=== PATIENT | male | born 1945 | race Two or more races ===

== ENCOUNTER → 2020-10-25 12:54 | Outpatient (BNVA) | payer MEDICARE, MEDICAID, SELFPAY | PROVIDERS: PCP Nurse Practitioner Community Health; Visit Provider Anesthesiology | DX: M54.5 Low back pain (principal) | CPT/HCPCS: 99202 ==

== ENCOUNTER 2022-03-07 14:06 | Outpatient (REF) | payer MEDICARE, MEDICAID, SELFPAY ==
--- NOTE | ~2022-03-07 | XR_ITS ---
EXAMINATION: XR CHEST CLINICAL INFORMATION: I48.0 - Paroxysmal atrial fibrillation COMPARISON: Chest radiographs 01/05/2018, 01/04/2018, 08/02/2017; CT abdomen 01/04/2018. TECHNIQUE: The chest is imaged in frontal and 2 lateral views for a total of 3 views. FINDINGS: The cardiopericardial silhouette is within normal size. There is tapering at the right cardiophrenic angle consistent with areolar tissue. The vascularity is normal. No vascular congestion. No airspace consolidation or effusion. The costophrenic sulci are clear. The hilar and mediastinal contours and bony structures are similar to prior studies. XR/XR chest 2V IMPRESSION: No acute intrathoracic disease.
[2022-03-07 15:48] LABS: Hematocrit 38.4 % (42.0-52.0); Hemoglobin 12.7 g/dl (14.0-18.0); Mean Corpuscular HGB Conc 33.1 g/dl (31.0-36.0); Mean Corpuscular Hemoglobin 32.6 pg (27.0-33.0); Mean Corpuscular Volume 98.5 fL (80.0-98.0); Mean Platelet Volume 10.5 fL (9.4-12.4); Platelet Count 199 X10*3/uL (160-400); Red Cell Distribution Width 12.7 % (11.0-16.0); White Blood Count 4.8 X10*3/uL (4.8-10.8)
[2022-03-07 16:11] LABS: Alanine Aminotransferase 16 U/L (0-40); Alkaline Phosphatase 84 U/L (39-117); Anion Gap 16 (12-20); Aspartate Amino Transferase 17 U/L (5-37); Bilirubin Direct 0.3 mg/dL (0.0-0.5); Bilirubin Total 0.7 mg/dL (0.0-1.0); Blood Urea Nitrogen 24 mg/dL (9-16); Calcium 9.6 mg/dL (8.4-10.2); Carbon Dioxide 26 mmol/L (22-29); Chloride 104 mmol/L (96-108); Estimated Glomerular Filt Rate 41; Glucose Random 129 mg/dL (60-115); Magnesium 1.9 mg/dL (1.6-2.6); Potassium 4.7 mmol/L (3.3-5.1); Sodium 141 mmol/L (135-145); Total Protein 6.6 g/dL (6.5-8.0)
[2022-03-07 16:31] LABS: TSH reflex Free T4 1.72 uIU/mL (0.32-4.0)
== END 2022-03-07 14:07 | disposition home or self-care (01) ==
LOC: HO.LAB 14:06
PROVIDERS: PCP Family Medicine; Referring Provider Family Medicine; Visit Provider Internal Medicine Cardiovascular Disease
DX: I48.0 Paroxysmal atrial fibrillation (principal); I50.30 Unspecified diastolic (congestive) heart failure
CPT/HCPCS: 36415; 71046; 80048; 80076; 83735; 84443; 85027; 93005; 99202

== ENCOUNTER → 2022-04-19 14:32 | Outpatient (REF) | payer MEDICARE, MEDICAID, SELFPAY ==
--- NOTE | 2022-04-19 14:38 | CA_ITS ---
Transthoracic Echocardiogram Patient (Last, First, Middle): Wili Ruiz, Gender: Male Date of : 1945 Age: 76 Procedure Date: 04/19/2022 Procedure Type: Transthoracic Echocardiogram Location: OP Height: 177.8 cm Weight: 113.4 kg BSA: 2.29 m2 Heart Rate: bpm BP: 130 / 70 mmHg [employer]er: Referring MD: Neil Barnhart MD Route Process Administrator: Neil Barnhart MD Symptoms: I48.0 - Paroxysmal atrial fibrillation Study Quality: Good ECG Rhythm: Sinus Conclusions: - 1. Normal LV systolic function with mild LVH with impaired relaxation filling pattern 2. Mild mitral calcification with trivial aortic regurgitation 3. Normal RV systolic pressure 4. No pericardial effusion Findings Left Ventricle Normal left ventricular size and systolic function. There is mildly increased left ventricular wall thickness. The visually estimated ejection fraction is between 60-65%. Spectral Doppler is indicative of an impaired relaxation filling pattern. E/E prime ratio is between 8 and 15 consistent with indeterminate filling pressures. Right Ventricle Normal right ventricular cavity size and systolic function. Atria The left atrium is normal in size. There is no evidence of interatrial shunt. The right atrium is likely dilated. Aortic Valve There is mild calcification of the aortic valve. There is no aortic valve stenosis. There is trace (trivial) aortic valve regurgitation. Mitral Valve There is mild anterior and posterior mitral leaflet thickening. There is mild mitral annular calcification. There is trace mitral valve regurgitation. There is no mitral valve stenosis. Pulmonic Valve The pulmonic valve was not well visualized. Tricuspid Valve Likely normal tricuspid valve structure and function. There is trace tricuspid valve regurgitation. The right ventricular systolic pressure is normal. The right ventricular systolic pressure is 27 mmHg. Normal right atrial pressure. There is no evidence of pulmonary hypertension. Great Vessels All visible segments of the aorta are normal in size. The pulmonary artery was not well visualized. Venous The inferior vena cava is normal in size and collapses greater than 50% with inspiration. Pericardium/Pleural There is no evidence of pericardial effusion. Prior Study Comparison Changes noted compared to prior study dated: 01/05/2018. RV systolic pressure is normal on this study Measurements 2D Linear Measurements IVSd: 1.39 0.6-0.9/0.6-1.0 cm LVIDd: 4.68 3.9-5.3/4.2-5.9 cm LVIDd Index: 2.04 2.4-3.2/2.2-3.1 cm/m2 LVIDs: 3.07 2.0-3.6 cm LVPWd: 1.34 0.7-1.1 cm Ao Root: 3.60 2.1-3.5 cm LA Diam: 3.70 2.7-3.8/3.0-4.0 cm LAIDs Index: 1.62 1.5-2.3 cm/m2 LV Mass: 316.54 67-162/88-224 g LV Mass Index: 138.23 43-95/49-115 g/m2 LVOT Diam: 2.20 3.0+(-)1.3 cm Mitral Valve MV Pk E: 0.83 MV PK A: 0.90 MV Decel Time: 262.00 E/A: 0.90 E'Lateral: 5.87 E'Medial: 4.68 E/E' Med: 17.80 E/E' Lat: 14.20 PHT: 77.00 MVA PHT: 2.86 Decel [place]: 3.17 Aortic Valve AoV Pk Ayo: 2.08 AoV Mn Ayo: 1.42 AoV VTI: 0.47 AoV Pk Grad: 17.00 Aov Mn Grad: 9.00 DEJUAN Cont.VTI: 1.79 LVOT LVOT Pk Ayo: 0.89 LVOT Mn Ayo: 0.62 LVOT VTI: 0.22 LVOT Pk Grad: 3.00 LVOT Mn Grad: 2.00 LVOT Diam: 2.20 LVOT Area: 3.80 Diastolic Function MV Pk E: 0.83 MV Pk A: 0.90 E/A: 0.90 E'Medial: 4.68 E/E' Med: 17.80 E' Laterial: 5.87 E/E' Lat: 14.20 Tricuspid Valve TR Pk Ayo: 2.43 TR Pk Grad: 24.00 RA Press: 3.00 RVSP: 27.00 Great Vessels Aorta Ao Root-2D: 3.60 2.0-3.7 cm Pulmonary Valve PV Pk Ayo: 1.25 Peak PV Grad: 6.00 Updated in Other Vendor System with Status of Final Neil Barnhart MD electronically signed on 04/20/2022 1:45:16 PM with status of Final
--- NOTE | 2022-04-19 14:38 | HM_ITS ---
Conclusion: 1. Patient was monitored for total period of 3 days and 6 hours 2. Baseline was normal sinus rhythm with average heart rate of 55 beats per minute on the bradycardic side 3. No significant pauses noted with lowest heart rate of 46 beats per minute 4. Very rare PVCs noted 5. No patient reported events MTDD
== END ==
LOC: HO.CARD 14:32
PROVIDERS: PCP Family Medicine; Visit Provider Internal Medicine Cardiovascular Disease
DX: I48.0 Paroxysmal atrial fibrillation (principal)
CPT/HCPCS: 93242; 93306

== ENCOUNTER 2022-05-31 15:31 | Outpatient (REF) | payer MEDICARE, MEDICAID, SELFPAY ==
[2022-05-31 17:08] LABS: Anion Gap 17 (12-20); Blood Urea Nitrogen 29 mg/dL (9-16); Carbon Dioxide 30 mmol/L (22-29); Chloride 101 mmol/L (96-108); Estimated Glomerular Filt Rate 46; Glucose Random 132 mg/dL (60-115); Potassium 4.8 mmol/L (3.3-5.1); Sodium 143 mmol/L (135-145)
== END 2022-05-31 15:32 | disposition home or self-care (01) ==
LOC: HO.LAB 15:31
PROVIDERS: Visit Provider Nurse Practitioner Family
DX: I48.0 Paroxysmal atrial fibrillation (principal); R79.89 Other specified abnormal findings of blood chemistry
CPT/HCPCS: 36415; 80048; 99212

== ENCOUNTER → 2022-07-26 15:21 | Outpatient (BNVA) | payer MEDICARE, MEDICAID, SELFPAY | PROVIDERS: PCP Family Medicine; Visit Provider Anesthesiology | DX: M54.41 Lumbago with sciatica, right side (principal); Z99.3 Dependence on wheelchair | CPT/HCPCS: 99212 ==

== ENCOUNTER 2022-08-15 06:29 | Outpatient (REF) | payer MEDICARE, MEDICAID, SELFPAY ==
--- NOTE | ~2022-08-15 | FL_ITS ---
EXAMINATION: XR FLUOROSCOPY WITH IMAGES CLINICAL INFORMATION: Low back pain TECHNIQUE: Fluoroscopy Supervised By: Dr. Kai Bills. Fluoroscopy Time: 0.2 minutes. Cumulative Dose: 17.9 mGy. DAP: 4.88 Gycm2. Images: 2. FL/FL guidance in treatment room FINDINGS/IMPRESSION: Images show a spinal needle in the right sacroiliac joint. Please see procedure report.
== END 2022-08-15 06:30 | disposition home or self-care (01) ==
LOC: CF 06:29
PROVIDERS: Visit Provider Anesthesiology
DX: M54.50 Low back pain, unspecified (principal)
CPT/HCPCS: 27096

== ENCOUNTER → 2022-08-17 10:56 | Outpatient (BNVA) | payer MEDICARE, MEDICAID, SELFPAY | PROVIDERS: PCP Family Medicine; Visit Provider Anesthesiology | DX: M54.50 Low back pain, unspecified (principal) | CPT/HCPCS: Q3014 ==

== ENCOUNTER 2022-09-26 06:17 | Outpatient (REF) | payer MEDICARE, MEDICAID, SELFPAY | END 2022-09-26 06:18 | disposition home or self-care (01) | LOC: CF 06:17 | PROVIDERS: Visit Provider Anesthesiology | DX: Z13.89 Encounter for screening for other disorder (principal) ==

== ENCOUNTER 2022-12-12 06:38 | Outpatient (REF) | payer MEDICARE, MEDICAID, SELFPAY ==
--- NOTE | ~2022-12-12 | FL_ITS ---
EXAMINATION: XR FLUOROSCOPY WITH IMAGES CLINICAL INFORMATION: Low back pain. COMPARISON: None. TECHNIQUE: Fluoroscopy Supervised By: CUONG Anaya. Fluoroscopy Time: 0.4 minutes. Cumulative Dose: 11.9 mGy. DAP: 3.25 Gycm2. Images: 4. FINDINGS: There are needles positioned along the right aspect of L3, L4, L5 and S1 pedicles with contrast opacifying the adjacent soft tissues. There is moderate spondylosis of lower lumbar spine. No acute fracture or lytic process seen. FL/FL guidance in treatment room IMPRESSION: Fluoroscopy was provided to referrer for pain management.
--- NOTE | ~2022-12-12 | XR_ITS ---
EXAMINATION: XR KNEE, RIGHT CLINICAL INFORMATION: Chronic pain COMPARISON: Right knee 08/02/2017 TECHNIQUE: 3 views of the right knee. FINDINGS: There is severe loss of medial and patellofemoral compartment joint space with superior patellar spurring. No visible acute fracture or dislocation seen. There are no loose bodies. Degenerative varus deformity of right ankle is noted. XR/XR knee RT 3V IMPRESSION: 1. Degenerative arthritic changes medial and patellofemoral compartment with superior patellar spurring. No visible acute fracture or dislocation seen. 2. Genu varus deformity right ankle.
== END 2022-12-12 06:39 | disposition home or self-care (01) ==
LOC: HO.XRAY 06:38
PROVIDERS: Absent Provider Family Medicine; PCP Family Medicine; Visit Provider Anesthesiology
DX: M54.50 Low back pain, unspecified (principal); M47.816 Spondylosis without myelopathy or radiculopathy, lumbar region; M53.3 Sacrococcygeal disorders, not elsewhere classified; M25.561 Pain in right knee; M25.562 Pain in left knee; G89.29 Other chronic pain
CPT/HCPCS: 64493; 64494; 73562

== ENCOUNTER → 2022-12-18 11:18 | Outpatient (BNVA) | payer MEDICARE, MEDICAID, SELFPAY | PROVIDERS: PCP Family Medicine; Visit Provider Anesthesiology | DX: M54.50 Low back pain, unspecified (principal) | CPT/HCPCS: Q3014 ==

== ENCOUNTER 2023-01-11 12:36 | Outpatient (REF) | payer MEDICARE, MEDICAID, SELFPAY ==
--- NOTE | ~2023-01-11 | XR_ITS ---
EXAMINATION: XR CHEST CLINICAL INFORMATION: I48.0 - Paroxysmal atrial fibrillation COMPARISON: Chest radiographs 03/07/2022, 01/05/2018 TECHNIQUE: Sitting AP and sitting lateral views of the chest. FINDINGS: There are low lung volumes on the AP view along with caudad angulation of the x-ray beam. The lungs appear clear and there is no airspace consolidation or groundglass opacity. Cardiopericardial silhouette appears upper limits of normal. The vascularity is within normal limits and there is no vascular congestion or effusion. The hilar and mediastinal contours and bony structures are similar to prior studies. XR/XR chest 2V IMPRESSION: No acute intrathoracic disease.
[2023-01-11 14:29] LABS: Hematocrit 35.3 % (42.0-52.0); Hemoglobin 11.5 g/dl (14.0-18.0); Mean Corpuscular HGB Conc 32.6 g/dl (31.0-36.0); Mean Corpuscular Volume 101.1 fL (80.0-98.0); Mean Platelet Volume 10.6 fL (9.4-12.4); Platelet Count 199 X10*3/uL (160-400); Red Blood Count 3.49 X10*6/uL (4.60-5.80); Red Cell Distribution Width 12.6 % (11.0-16.0); White Blood Count 4.6 X10*3/uL (4.8-10.8)
[2023-01-11 14:31] LABS: Alanine Aminotransferase 11 U/L (0-40); Alkaline Phosphatase 88 U/L (39-117); Anion Gap 14 (12-20); Aspartate Amino Transferase 15 U/L (5-37); Bilirubin Direct < 0.2 mg/dL (0.0-0.5); Bilirubin Total 0.4 mg/dL (0.0-1.0); Blood Urea Nitrogen 19 mg/dL (9-16); Calcium 9.2 mg/dL (8.4-10.2); Carbon Dioxide 31 mmol/L (22-29); Chloride 103 mmol/L (96-108); Estimated Glomerular Filt Rate 43; Glucose Random 95 mg/dL (60-115); Potassium 4.8 mmol/L (3.3-5.1); Sodium 143 mmol/L (135-145); Total Protein 6.2 g/dL (6.5-8.0)
== END 2023-01-11 12:37 | disposition home or self-care (01) ==
LOC: HO.LAB 12:36
PROVIDERS: PCP Family Medicine; Referring Provider Family Medicine; Visit Provider Internal Medicine Cardiovascular Disease
DX: I48.0 Paroxysmal atrial fibrillation (principal); R07.89 Other chest pain
CPT/HCPCS: 36415; 71046; 80048; 80076; 84443; 85027; 93005; 99212

== ENCOUNTER 2023-03-30 12:09 | Outpatient (REF) | payer MEDICARE, MEDICAID, SELFPAY ==
[2023-03-30 19:45] LABS: Anion Gap 14 (12-20); Blood Urea Nitrogen 20 mg/dL (9-16); Calcium 9.1 mg/dL (8.4-10.2); Carbon Dioxide 27 mmol/L (22-29); Chloride 104 mmol/L (96-108); Estimated Glomerular Filt Rate 49; Glucose Random 162 mg/dL (60-115); Potassium 4.1 mmol/L (3.3-5.1); Sodium 141 mmol/L (135-145)
[2023-03-30 20:08] LABS: Prostate Specific Antigen 1.62 ng/mL (<0.05-4.0)
== END 2023-03-30 12:10 | disposition home or self-care (01) ==
LOC: HO.LAB 12:09
PROVIDERS: Internal Medicine Cardiovascular Disease; PCP Family Medicine; Visit Provider Nurse Practitioner Family
DX: Z12.5 Encounter for screening for malignant neoplasm of prostate (principal); N40.0 Benign prostatic hyperplasia without lower urinary tract symptoms; I48.0 Paroxysmal atrial fibrillation; R53.83 Other fatigue; R30.0 Dysuria; Z87.898 Personal history of other specified conditions
CPT/HCPCS: 36415; 51798; 80048; 84153; 99202

== ENCOUNTER 2023-05-01 12:44 | Outpatient (REF) | payer MEDICARE, MEDICAID, SELFPAY ==
--- NOTE | ~2023-05-01 | US_ITS ---
EXAMINATION: US RETROPERITONEAL COMPLETE (RENAL) CLINICAL INFORMATION: Dysuria. COMPARISON: CT abdomen and pelvis without contrast 01/04/2018. TECHNIQUE: Real-time imaging of the kidneys and bladder. FINDINGS: RIGHT KIDNEY: 10.2 x 4.1 x 5.1 cm (SAG x AP x TRV). The kidney is normal in size, contour, and echogenicity. Renal cortical thickness is normal. No renal calculi or hydronephrosis. There is a 1 cm simple cyst in the lower pole, for which no imaging follow-up is recommended. LEFT KIDNEY: 10.3 x 5.2 x 4.7 cm (SAG x AP x TRV). There are multiple simple cysts largest in the midpole measuring 1.4 cm, for which no imaging follow-up is recommended. There is nonspecific prominence of the pelvic fat and renal pyramids which are hyperechoic. There is trace pelvic fullness. BLADDER: Bilateral ureteral jets are not demonstrated. Prevoid bladder volume is 219.2 mL. Postvoid bladder volume is 6.2 mL. There is diffuse wall thickening. Along the right posterior bladder, there is a cystic outpouching with a narrow neck with no associated vascularity. The prostate volume is 35.0 mL. US/US retroperitoneal comp IMPRESSION: 1. Nonspecific prominence of the pelvic fat and renal pyramids of the left kidney, recommend further evaluation with CT or MRI. 2. There is mild diffuse wall thickening of the urinary bladder which could be seen with cystitis in the appropriate clinical context. 3. There is a cystic outpouching along the right posterior bladder wall with a narrow neck, possibly representing a ureterocele. 4. There is trace left pelvic fullness. 5. The prostate is mildly enlarged.
== END 2023-05-01 12:45 | disposition home or self-care (01) ==
LOC: HO.US 12:44
PROVIDERS: PCP Family Medicine; Visit Provider Nurse Practitioner Family
DX: R30.0 Dysuria (principal)
CPT/HCPCS: 76770

== ENCOUNTER 2023-05-14 13:32 | Outpatient (AMB) | payer MEDICARE, MEDICAID, SELFPAY ==
--- NOTE | 2023-05-14 13:43 | A.OFFVIS_ITS ---
Intake Intake Visit Reasons: 2m/US/labs(set) Intake Note: Patient presents for follow up ultrasound/labs/BPH (imaging 05/01) (PSA 1.62) Urology Medications: tamsulosin Blood Thinner: apixaban PVR: 10ml's Credit Analysis Manager Required: Yes Accompanied by: Self / Same As Patient Allergies acetaminophen [Excedrin Extra Strength] Allergy (Unknown, Verified 05/15/23 20:08) Unknown caffeine [Excedrin Extra Strength] Allergy (Unknown, Verified 05/15/23 20:08) Unknown aspirin [ASPIRIN] Adverse Reaction (Unknown, Verified 05/15/23 20:08) UNKNOWN Medication List - Last Reconciled 05/15/23 by CUONG Delgadillo-BRITTANY albuterol sulfate 90 mcg/actuation inhalation amiodarone 200 mg PO DAILY apixaban (Eliquis) 5 mg PO BID atorvastatin 40 mg PO DAILY ferrous sulfate 325 mg PO QAM fluticasone furoate-vilanterol 200-25 mcg/dose (Breo Ellipta) 1 ea inhalation DAILY folic acid 1 mg PO QAM lidocaine 5% 1 patch topical DAILY melatonin 5 mg PO BEDTIME metformin 850 mg PO BID metoprolol succinate ER 50 mg PO DAILY multivitamin 1 tab PO QAM paroxetine HCl 10 mg PO DAILY quetiapine 100 mg PO BEDTIME sucralfate PO tamsulosin 0.4 mg PO DAILY 90 days trazodone 100 mg PO BEDTIME HPI HPI Comments History of Present Illness Details Wili is pleasant 77 year old Martiniquais speaking male patient of Dr. Peng who is accompanied by his grandaughter and daughter at todays visit. He has a PMH of paroxysmal atrial fibrillation, fatigue arthritis, asthma, and diabetes. He presents to the office today for follow-up. Of note, patient was seen approximately 6 weeks ago as a new patient to establish urology care at which time a retroperitoneal ultrasound and PSA was ordered for further assessment evaluation. These results were reviewed with the patient and his family today. PSA 03/30--1.6. Right kidney with no calculi or hydronephrosis noted. There is a 1 cm simple cyst in the lower pole for which no imaging follow-up is recommended per radiology report.Left kidney with multiple simple cysts largest in the mid pole measuring 1.4 cm for which no imaging follow-up is recommended. There is nonspecific prominence of the pelvic fat and renal pyramids which or hyperechoic. There is mild trace pelvic fullness. Pre void bladder volume is approximately 220 mL. Postvoid bladder volume is approximately 5 mL. there is diffuse wall thickening. Along the right posterior bladder, there is a cystic outpouching with a narrow neck with no associated vascularity. The prostate volume is approximately 35 mL. He continues with tamsulosin daily. He currently denies any urinary issues or concerns at this time. When asked he denies urinary urgency, urinary frequency, incontinence, nocturia, hematuria, foul smelling urine, changes to urinary stream, flank pain, fever, and or chills. Discussed importance of managing diabetes for improvement in urinary symptoms as well as overall health and wellbeing. He is happy with his current voiding parameters on flomax daily. Unable to obtain urine for urinalysis however PVR 10mls. He otherwise denies any issues or concerns. [facility] Medical History Arthritis Asthma Diabetes Fatigue Low back pain Paroxysmal atrial fibrillation Social History Alcohol intake: current Alcohol intake frequency: does not drink Patient Tobacco Use Status: Never used Tobacco Review of Systems Const Reports as per HPI Eyes Reports as per HPI ENT Reports no additional complaints Card Reports as per HPI Resp Reports as per HPI Reports as per HPI Musc Reports no additional complaints Endo Reports as per HPI Physical Exam Const General: cooperative, comfortable, no acute distress, well developed, alert and awake Orientation/consciousness: patient oriented x3 Limitations: wheelchair HEENT Head: Yes normal to inspection, Yes normocephalic and Yes atraumatic Ears: hearing grossly normal bilaterally Eyes General: appearance normal, both eyes and all related structures Neck Neck: Yes normal visual inspection and Yes trachea midline Chest Chest palpation & inspection: normal inspection of the chest Resp Effort & Inspection: normal respiratory effort and able to speak in complete sentences Cardio Rate: regular rate GI Inspection: Yes normal to inspection General: Yes no CVA tenderness Back/Spine/Pelvis Back: no CVA tenderness Skin General skin exam: no rashes or lesions noted Neuro General: patient oriented x3 Extrem General: Yes normal to inspection Psych Appearance: grossly normal and well kempt Mental Status: mental status grossly normal Speech and movement: Normal speech and movement present and Clear speech present Affect: normal affect Attitude: cooperative Thought process: Normal thought process present Thought content: Normal thought content present Insight: Fair insight present (Psych) Judgement: Fair judgement present (Psych) Office Procedures Post Void Residual Post Residual Void Post Void Residual (PVR): 10 [id number] Void Residual by ultrasound Results Reviewed Results Reviewed: Date of Service: 05/01/23 EXAMINATION: US RETROPERITONEAL COMPLETE (RENAL) FINDINGS: RIGHT KIDNEY: 10.2 x 4.1 x 5.1 cm (SAG x AP x TRV). The kidney is normal in size, contour, and echogenicity. Renal cortical thickness is normal. No renal calculi or hydronephrosis. There is a 1 cm simple cyst in the lower pole, for which no imaging follow-up is recommended. LEFT KIDNEY: 10.3 x 5.2 x 4.7 cm (SAG x AP x TRV). There are multiple simple cysts largest in the midpole measuring 1.4 cm, for which no imaging follow-up is recommended. There is nonspecific prominence of the pelvic fat and renal pyramids which are hyperechoic. There is trace pelvic fullness. BLADDER: Bilateral ureteral jets are not demonstrated. Prevoid bladder volume is 219.2 mL. Postvoid bladder volume is 6.2 mL. There is diffuse wall thickening. Along the right posterior bladder, there is a cystic outpouching with a narrow neck with no associated vascularity. The prostate volume is 35.0 mL. IMPRESSION: 1.? Nonspecific prominence of the pelvic fat and renal pyramids of the left kidney, recommend further evaluation with CT or MRI. 2.? There is mild diffuse wall thickening of the urinary bladder which could be seen with cystitis in the appropriate clinical context. 3.? There is a cystic outpouching along the right posterior bladder wall with a narrow neck, possibly representing a ureterocele. 4.? There is trace left pelvic fullness. 5.? The prostate is mildly enlarged. Assessment & Plan Assessment & Plan (1) Renal cyst: Code(s): N28.1 - Cyst of kidney, acquired (2) History of urinary retention: Code(s): Z87.898 - Personal history of other specified conditions Plan Unable to urine for urinalysis however PVR 10ml's. Recent retroperitoneal ultrasound results reviewed with the patient his family today; as noted above; will continue with surveillance imaging monitoring Recent PSA results reviewed with the patient his family today; as noted above. Patient reports to be happy with current voiding parameters on 0.4 mg of Flomax daily. Continue Flomax as discussed and prescribed. Patient denies any bothersome urinary issues or concerns at this time. Discussed, educated, encouraged on the importance of drinking plenty of water daily. PSA in 1 year Renal ultrasound in 1 year Follow-up in 1 year with lab to be completed prior; or sooner with any issues, concerns, and or questions. Orders: Orders Prostate Specific Antigen 364 Days N40.0 - Benign prostatic hyperplasia without lower urinary tract symptoms US renal BI 364 Days N28.1 - Cyst of kidney, acquired AMB Urinalysis Automated 05/14/23 Z13.9 - Encounter for screening, unspecified AMB Post Void Residual by ultrasound 05/14/23 Z87.898 - Personal history of other specified conditions Medications: Changed From tamsulosin 0.4 mg PO DAILY To tamsulosin 0.4 mg PO DAILY 90 days 90 caps 4RF Coding Level of Care Code Est Pt Level 3 (39571) Diagnoses Renal cyst N28.1 History of urinary retention Z87.898 CPT Codes Post Residual Void - PVR CPT Code: 14295-Dpvb Void Residual by ultrasound ([id number])
== END 2023-05-14 14:24 | disposition home or self-care (01) ==
PROVIDERS: PCP Family Medicine; Visit Provider Nurse Practitioner Family
DX: N28.1 Cyst of kidney, acquired (principal); Z87.898 Personal history of other specified conditions
CPT/HCPCS: 99213

== ENCOUNTER → 2023-05-14 13:32 | Outpatient (BNVA) | payer MEDICARE, MEDICAID, SELFPAY | PROVIDERS: PCP Family Medicine; Visit Provider Nurse Practitioner Family | DX: N28.1 Cyst of kidney, acquired (principal); Z87.898 Personal history of other specified conditions | CPT/HCPCS: 51798; 99212 ==

== ENCOUNTER 2023-07-05 11:46 | Outpatient (AMB) | payer MEDICARE, MEDICAID, SELFPAY ==
--- NOTE | 2023-07-05 12:59 | A.OFFVIS_ITS ---
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: No Hydrogen Plant Operations Manager: Hydrogen Plant Operations Manager Present Accompanied by: Grand Child Allergies acetaminophen [Excedrin Extra Strength] Allergy (Unknown, Verified 05/15/23 20:08) Unknown caffeine [Excedrin Extra Strength] Allergy (Unknown, Verified 05/15/23 20:08) Unknown aspirin [ASPIRIN] Adverse Reaction (Unknown, Verified 05/15/23 20:08) UNKNOWN Medication List - Last Reconciled 07/05/23 by Neil Barnhart MD albuterol sulfate 90 mcg/actuation inhalation amiodarone 200 mg PO DAILY apixaban (Eliquis) 5 mg PO BID atorvastatin 40 mg PO DAILY ferrous sulfate 325 mg PO QAM fluticasone furoate-vilanterol 200-25 mcg/dose (Breo Ellipta) 1 ea inhalation DAILY folic acid 1 mg PO QAM lidocaine 5% 1 patch topical DAILY melatonin 5 mg PO BEDTIME metformin 850 mg PO BID metoprolol succinate ER 50 mg PO DAILY multivitamin 1 tab PO QAM paroxetine HCl 10 mg PO DAILY quetiapine 100 mg PO BEDTIME sucralfate PO tamsulosin 0.4 mg PO DAILY 90 days trazodone 100 mg PO BEDTIME HPI HPI Comments History of Present Illness Details Wili comes for follow-up. He is accompanied by his PROCESS PROJECT ENGINEER. Patient has minimal activity due to his significant back pain as per him. He said he is not able to do much exercise. He denies any cardiac symptoms. Denies any worsening shortness of breath, orthopnea, PND. No prolonged palpitation irregular heartbeat. No bleeding issues or neurologic events. [facility] Medical History Paroxysmal atrial fibrillation Low back pain Fatigue Arthritis Asthma Diabetes Social History Alcohol intake: current Alcohol intake frequency: does not drink Patient Tobacco Use Status: Never used Tobacco Review of Systems Const Denies chills, Denies fatigue, Denies fever(s), Denies frequent falls, Denies weakness, Denies weight gain and Denies weight loss ENT Denies dizziness Card Denies chest pain, Denies leg edema, Denies lightheadedness, Denies palpitations, Denies dyspnea, Denies dyspnea on exertion, Denies orthopnea and Denies other (loss of consciousness) Resp Denies cough, Denies dyspnea and Denies dyspnea on exertion GI Denies hematochezia and Denies change in stool character Musc Denies abnormal gait, Denies muscle weakness, Denies numbness, Denies radiating pain into limb and Denies tingling Neuro Denies abnormal gait, Denies dizziness, Denies frequent falls, Denies numbness, Denies tingling and Denies weakness Endo Denies fatigue and Denies palpitations Physical Exam Vital Signs: Last Vital Signs Pulse 59 07/05/23 13:05 BP 130/82 07/05/23 13:05 BMI result Body Mass Index 33.5 Const General: cooperative, comfortable and no acute distress Orientation/consciousness: patient oriented x3 Limitations: wheelchair Neck Neck: Yes normal visual inspection and Yes no JVD Carotids: normal carotid upstroke Resp Effort & Inspection: normal respiratory effort Auscultation: clear to auscultation bilaterally, no crackles, no rales, no rhonchi and no wheezes Cardio Jugular venous distension: no JVD Rate: regular rate Rhythm: regular rhythm Heart sounds: S1 normal heart sound present, S2 normal heart sound present, no gallops, no murmurs and no rubs Peripheral pulses: Peripheral pulses 2+ throughout GI Inspection: Yes normal to inspection Neuro General: patient oriented x3 Extrem General: Yes normal to inspection Psych Appearance: grossly normal Mental Status: mental status grossly normal Speech and movement: Normal speech and movement present Office Procedures EKG Details: EKG shows sinus bradycardia at 59 beats per minute with first-degree AV block [place] [id number], Complete Assessment & Plan Assessment & Plan (1) Paroxysmal atrial fibrillation: Code(s): I48.0 - Paroxysmal atrial fibrillation Plan: Paroxysmal atrial fibrillation which has remained suppressed and has help with rhythm control approach. Will reduce amiodarone 200 mg daily to reduce long- term toxicity. Discussed this management plan with him and his PROCESS PROJECT ENGINEER. They understand agree. Continue full oral anticoagulation, currently on Eliquis 5 mg b.i.d.. Semi annual renal function test should be pursued. Advised to call me with any worsening symptoms. Follow up in the clinic in 6 months time with EKG. Orders: Orders Basic Metabolic Panel Today I48.0 - Paroxysmal atrial fibrillation CA echo transthoracic complete 50 Weeks I48.0 - Paroxysmal atrial fibrillation Medications: Changed From amiodarone 200 mg PO DAILY To amiodarone 100 mg PO DAILY Coding Level of Care Code Est Pt Level 3 (54991) Diagnoses Paroxysmal atrial fibrillation I48.0 CPT Codes EKG - CPT: 03003-[id number], Complete ([id number])
[2023-07-05 13:05] VITALS: BP 130/82; PULSE 59; BMI 33.5
== END 2023-07-05 13:26 | disposition home or self-care (01) ==
PROVIDERS: PCP Family Medicine; Visit Provider Internal Medicine Cardiovascular Disease
DX: I48.0 Paroxysmal atrial fibrillation (principal)
CPT/HCPCS: 93010; 99213

== ENCOUNTER 2023-07-05 11:46 | Outpatient (REF) | payer MEDICARE, MEDICAID, SELFPAY ==
[2023-07-05 14:23] LABS: Anion Gap 16 (12-20); Blood Urea Nitrogen 23 mg/dL (9-16); Calcium 9.9 mg/dL (8.4-10.2); Carbon Dioxide 29 mmol/L (22-29); Chloride 101 mmol/L (96-108); Estimated Glomerular Filt Rate 51; Glucose Random 111 mg/dL (60-115); Potassium 4.9 mmol/L (3.3-5.1); Sodium 141 mmol/L (135-145)
== END 2023-07-05 11:47 | disposition home or self-care (01) ==
LOC: HO.LAB 11:46
PROVIDERS: PCP Family Medicine; Visit Provider Internal Medicine Cardiovascular Disease
DX: I48.0 Paroxysmal atrial fibrillation (principal); Z79.899 Other long term (current) drug therapy
CPT/HCPCS: 36415; 80048; 93005; 99212

== ENCOUNTER 2023-07-10 09:28 | Outpatient (REF) | payer MEDICARE, MEDICAID, SELFPAY ==
--- NOTE | ~2023-07-10 | US_ITS ---
EXAMINATION: US RETROPERITONEAL LIMITED (AORTA) CLINICAL INFORMATION: History of tobacco use. COMPARISON: None available. TECHNIQUE: Valentin-scale, color Doppler and spectral Doppler evaluation of the abdominal aorta. FINDINGS: There is atherosclerotic disease. The measurements of the aorta in maximum AP and transverse dimensions respectively are as follows: Proximal: 2.9 x 3.5 cm. Mid: 2.1 x 2.2 cm. Distal: 1.8 x 1.9 cm. PSV: 59.3 cm/s. The measurements of the common iliac arteries in maximum AP and TRV dimensions are as follows: Right Common Iliac Artery: 1.2 x 0.9 cm. Left Common Iliac Artery: 1.3 x 1.2 cm. US/US abdominal aortic aneurysm IMPRESSION: No abdominal aortic or iliac artery aneurysm.
== END 2023-07-10 09:29 | disposition home or self-care (01) ==
LOC: HO.US 09:28
PROVIDERS: PCP Family Medicine; Visit Provider Family Medicine
DX: Z13.89 Encounter for screening for other disorder (principal)
CPT/HCPCS: 76706

== ENCOUNTER 2023-07-10 10:05 | Emergency (ER) | payer MEDICARE, MEDICAID, SELFPAY ==
--- NOTE | ~2023-07-10 | XR_ITS ---
EXAMINATION: XR CHEST CLINICAL INFORMATION: Altered mental status COMPARISON: 01/11/2023 TECHNIQUE: Frontal view of the chest was obtained. FINDINGS: Heart and mediastinum within normal limits. No vascular congestion. Left costophrenic angle blunting. No consolidations. Degenerative changes bilateral shoulders. XR/XR chest 1V IMPRESSION: Left costophrenic angle blunting, question small effusion. Consider PA and lateral feasible.
--- NOTE | ~2023-07-10 | CT_ITS ---
EXAMINATION: CT HEAD WITHOUT CONTRAST CLINICAL INFORMATION: Change in mental status. COMPARISON: CT head 01/04/2018. TECHNIQUE: Contiguous axial imaging was performed from the skull base to vertex without intravenous administration of contrast. This CT examination was performed using dose optimization techniques as appropriate, variously including the following: *Automated exposure control *Adjustment of mA and/or kV according to patient size (this includes techniques or standardized protocols for targeted exams where dose is matched to indication/reason for exam; i.e. extremities or head) *Use of iterative reconstruction technique DLP: 842 mGy-cm FINDINGS: There is a relatively small low-density subdural collection of the right cerebral convexity that measures approximately 0.5 cm in maximal thickness. Mass effect within the right supratentorial compartment causes 0.4 cm leftward midline shift of the septum pellucidum. No uncal herniation or mesencephalic compression. No evidence of acute hemorrhage. There are scattered nonspecific foci of hypoattenuation primarily involving the periventricular white matter. Valentin-white matter projection is otherwise preserved and there is no evidence of acute territorial infarct. The calvarium and skull base are intact. Mastoid air cells and middle ear cavities are well aerated. There is a small retention cyst within the alveolar recess of left maxillary sinus. Otherwise no active paranasal sinus disease. Globes and orbits are grossly symmetric. CT/CT head/brain wo IV con IMPRESSION: There is a subdural hygroma over the right cerebral convexity that measures 0.5 cm in maximal thickness. Mass effect within the right supratentorial compartment causes 0.4 cm leftward midline shift of the septum pellucidum. No uncal herniation or mesencephalic compression. Scattered chronic small vessel ischemic changes are visualized within the periventricular white matter. No evidence of acute territorial infarct or hemorrhage.
[2023-07-10 10:17] VITALS: BP 111/56; PULSE 54; RESP 18; TEMP 36.4; O2SAT 95; BMI 32.5
--- NOTE | 2023-07-10 10:28 | ECG_ITS ---
Test Reason : ams Blood Pressure : / mmHG Vent. Rate : 053 BPM Atrial Rate : 053 BPM P-R Int : 234 ms QRS Dur : 088 ms QT Int : 476 ms P-R-T Axes : 078 -12 024 degrees QTc Int : 446 ms Sinus bradycardia with 1st degree A-V block Otherwise normal ECG When compared with ECG of 07-JAN-2018 03:52, Sinus rhythm has replaced Atrial fibrillation Referred By: Tg Mott Electronically Signed By:TRAVIS FLOWERS
--- NOTE | 2023-07-10 11:30 | ED.AMS ---
HPI - Altered Mental Status General Chief Complaint: Altered Mental Status Stated Complaint: UTI Time Seen by Provider: 07/10/23 10:52 Source: patient, family and old records reviewed Mode of arrival: wheelchair Limitations: no limitations History of Present Illness HPI narrative: 77 yo male with PMH of PAF on eliquis, HLD, DM, asthma, low back pain, gait instability, prior UTI, CKD here with c/o being spacy and off since yesterday. No increased confusion just staring off and seems spacey or slower to answer. No trauma reported no falls. Last time this happened he had UTI. He also seems weaker and it is harder to walk. MD complaint: weakness Onset (ago): day(s) (1) Timing confirmed by: family member Severity: moderate Consistency of symptoms: constant Context: history of similar presentation Associated symptoms: malaise Related Data Home Medications Medication Instructions Recorded Confirmed albuterol sulfate 90 mcg/actuation inhalation 10/25/20 07/05/23 aerosol inhaler atorvastatin 40 mg tablet 40 mg PO DAILY 10/25/20 07/05/23 ferrous sulfate 325 mg (65 mg 325 mg PO QAM 10/25/20 07/05/23 iron) tablet folic acid 1 mg tablet 1 mg PO QAM 10/25/20 07/05/23 metformin 850 mg tablet 850 mg PO BID 10/25/20 07/05/23 metoprolol succinate 50 mg 50 mg PO DAILY 10/25/20 07/05/23 tablet,extended release 24 hr multivitamin 1 tab PO QAM 10/25/20 07/05/23 paroxetine HCl 10 mg tablet 10 mg PO DAILY 10/25/20 07/05/23 sucralfate 1 gram tablet PO 10/25/20 07/05/23 fluticasone furoate 200 1 ea inhalation DAILY 03/07/22 07/05/23 mcg-vilanterol 25 mcg/dose inhalation powder (Breo Ellipta) melatonin 5 mg tablet 5 mg PO BEDTIME 03/07/22 07/05/23 lidocaine 5 % topical patch 1 patch topical DAILY 12/12/22 07/05/23 trazodone 100 mg tablet 100 mg PO BEDTIME 12/12/22 07/05/23 quetiapine 100 mg tablet 100 mg PO BEDTIME 03/30/23 07/05/23 amiodarone 200 mg tablet 100 mg PO DAILY 07/05/23 07/05/23 Previous Rx's Medication Instructions Recorded tamsulosin 0.4 mg capsule 0.4 mg PO DAILY 90 days #90 caps 05/14/23 apixaban 5 mg tablet (Eliquis) 5 mg PO BID #60 tabs 06/21/23 Allergies Allergy/AdvReac Type Severity Reaction Status Date / Time acetaminophen Allergy Unknown Unknown Verified 07/10/23 10:17 [Excedrin Extra Strength] caffeine Allergy Unknown Unknown Verified 07/10/23 10:17 [Excedrin Extra Strength] aspirin [ASPIRIN] AdvReac Unknown UNKNOWN Verified 07/10/23 10:17 Review of Systems Review of Systems: Constitutional : No Fever, No Chills, No Fatigue ENT/Mouth : No sore throat, No Rhinorrhea Eyes: No Eye Pain, No Swelling, No Redness Cardiovascular : No Chest Pain, No SOB, No Dyspnea on Exertion Respiratory : No Cough, No Sputum Gastrointestinal : No Nausea, No Vomiting, No Diarrhea, No abdominal Pain Genitourinary : No Dysuria, No Urinary Frequency, No Hematuria, Musculoskeletal : No joint pain, No Myalgias, No Joint Swelling Skin : No Skin Lesions, No rash Neuro : pos Weakness, No Numbness, No Dizziness, no Headache Psych : No Anxiety/Panic, No Depression Heme/Lymph: No Bruising, No Bleeding,No Lymphadenopathy Endocrine : No Polyuria, No Polydipsia All other systems reviewed and are negative [facility] Past Medical History Attestation statement: The following information was validated with the patient. Medical History Paroxysmal atrial fibrillation Low back pain Fatigue Arthritis Asthma Diabetes Social History Social History Alcohol intake: current Alcohol intake frequency: does not drink Patient Tobacco Use Status: Never used Tobacco Advance Directives: Yes Advance Directives Information Provided: Yes Advance Directives on File: No Physical Exam ED Vital Signs: Vital Signs - 24 hr 07/10/23 10:17 07/10/23 14:32 Temperature 97.5 F 97.9 F Pulse Rate 54 64 Respiratory Rate 18 18 Blood Pressure 111/56 L 120/95 H Pulse Oximetry 95 Oxygen Delivery Method Room Air BMI result Body Mass Index 32.5 Appearance: Alert. Oriented X to person and place (baseline). No acute distress. Eyes: INDIRA R eye, L eye fake ENT: Pharynx normal. Neck: Normal inspection. Neck supple. CVS: Normal heart rate and rhythm. Pulses normal. Respiratory: No respiratory distress. Breath sounds normal. Abdomen: Soft and nontender. Skin: Skin warm and dry. Normal skin color. Normal skin turgor. Extremities: No lower extremity edema. Neuro: Oriented X 2. No motor deficit. No sensory deficit. Course Course Course Narrative: consult to neurology 121pm - unusual consult radiology to confirm no active bleeding which I did and they state either chronic SDH or hygroma but there is a 4mm midline shift at this time will ask NSGY from [facility] to review Reevaluation(s) Reevaluation #1: Spoke to Raven BOWEN from [facility] - doubts the hygroma and shift is causing the problems given it was acute. at this time will obtain MRI with and without and further recommendations pending Reevaluation #2: 247pm call back from NSGY no embolization or transfer, monitoring neuro status - will follow up in 4 to 6 weeks. make sure it is resolving. NSGY would encourage him to hold for 2 weeks could defer to commercial tire service technician no MRI needed. Reevaluation #3: did notify Dr. Meneses about holding eliquis will forward information to his Dr. Barnhart as well I did discuss stroke risk with family but given the edema I think it is best to hold the DOAC. Additional Reevaluation(s): patinet has improved with fluids and is at baseline per granddaughter and much better. Medications Administered Discontinued Medications Generic Name Dose Route Start Last Admin Trade Name Freq PRN Reason Stop Dose Admin Sodium Chloride 1,000 mls @ 999 mls/hr 07/10/23 11:00 07/10/23 12:45 Ns IV 07/10/23 12:00 Infused .Q1H1M MELIZA Infusion Medical Decision Making Medical Decision Making [facility] Narrative: 77 yo male with PMH of PAF on eliquis, HLD, DM, asthma, low back pain, gait instability, prior UTI, CKD here with increased spaciness and being off not himself no fevers, pain CP/SOB n/v/d at this time hx of same with UTI in the past no hx of MDR in urine per family. At this time labs, CXR, UA, EKG and CT head given doac use to rule out ICH. He has no focal deficits and is just globally weak and off but answering mentation questions at baseline. Differential Diagnosis Differential Diagnoses: The differential diagnosis associated with the presentation includes ICH, dehydration, viral syndrome, UTI Admission/Observation Consideration of admission/observation: Escalation of care including admission/observation considered at baseline outpatient work up per NSGY and patient is now at baseline Consult Healthcare Provider Management of the patient was discussed with: Telecom Engineer neurology, radiology and NSGY Lab Data MDM Lab Attestation statement: I reviewed the patient's lab results. 07/10/23 11:28 07/10/23 11:28 Labs: Lab Results 07/10/23 07/10/23 Range/Units 11:28 12:34 WBC 6.0 (4.8-10.8) X10*3/uL RBC 3.87 L (4.60-5.80) X10*6/uL Hgb 12.6 L (14.0-18.0) g/dl Hct 38.4 L (42.0-52.0) % MCV 99.2 H (80.0-98.0) fL MCH 32.6 (27.0-33.0) pg MCHC 32.8 (31.0-36.0) g/dl RDW 13.0 (11.0-16.0) % Plt Count 199 (160-400) X10*3/uL MPV 10.1 (9.4-12.4) fL Immature Gran % (Auto) 0.3 (0.0-0.4) % Neut % (Auto) 63.8 (45-73) % Lymph % (Auto) 19.9 L (20-40) % Ross % (Auto) 12.5 H (2-11) % Eos % (Auto) 3.2 (0-4) % Baso % (Auto) 0.3 (0-2) % Lymph # (Auto) 1.2 (1.2-4.9) X10*3/uL Ross # (Auto) 0.8 (0.1-1.2) X10*3/uL Eos # (Auto) 0.2 (0.0-0.4) X10*3/uL Baso # (Auto) 0.0 (0.0-0.2) X10*3/uL Abs Immat Gran (auto) 0.02 (0.00-0.03) X10*3/uL Absolute Neuts (auto) 3.8 (2.0-8.3) x10*3/uL Absolute Nucleated RBC 0.000 (0.0-0.012) X10*3/uL Nucleated RBC % (auto) 0.0 (0.0-0.2) /100WBC PT 17.9 H (11.1-13.3) SEC INR 1.5 H (0.9-1.1) Sodium 141 (135-145) mmol/L Potassium 4.2 (3.3-5.1) mmol/L Chloride 99 (96-108) mmol/L Carbon Dioxide 32 H (22-29) mmol/L Anion Gap 14 (12-20) BUN 30 H (9-16) mg/dL Creatinine 1.45 H (0.5-1.4) mg/dL Estim Creat Clear Calc 53.5 Estimated GFR 47 Random Glucose 93 (60-115) mg/dL Lactic Acid 2.0 (0.5-2.0) mmol/L Calcium 9.9 (8.4-10.2) mg/dL Magnesium 1.9 (1.6-2.6) mg/dL Total Bilirubin 0.5 (0.0-1.0) mg/dL Direct Bilirubin 0.2 (0.0-0.5) mg/dL AST 17 (5-37) U/L ALT 14 (0-40) U/L Alkaline Phosphatase 71 (39-117) U/L Ammonia 19 (13-55) umol/L Total Protein 7.3 (6.5-8.0) g/dL Albumin 4.4 (3.5-5.0) g/dL Urine Color Yellow Urine Appearance Clear Urine pH 6.0 (5.0-9.0) Ur Specific [place] 1.015 (1.005-1.025) Urine Protein Negative (Neg-Trace) mg/dL Urine Glucose (UA) Negative (Negative) mg/dL Urine Ketones Negative (Negative) mg/dL Urine Blood Negative (Negative) Urine Nitrite Negative (Negative) Ur Leukocyte Esterase Small (1+) H (Negative) Urine RBC 0-2 (0-2) /HPF Urine WBC 6-10 H (0-5) /HPF Ur Squamous Epith Cells 0-2 (0-2) /HPF Urine Bacteria None Seen (None Seen) Hyaline Casts 0-2 (0-2) /LPF COVID-19 (LOKESH) Negative (Negative) COVID-19 Clin Com See Note Influenza Type A (SHANIQUA) Negative (Negative) Influenza Type B (SHANIQUA) Negative (Negative) Influenza A & B Note See Note Independent Interpretation I performed an independent interpretation of an: EKG, Plain X-Ray and CT Scan (hygroma/ 4mm shift) Interpretation: Rate: 53 Rhythm: sinus bradycardia 1st degree [place]: left Normal P waves. . Normal QRS complex. ST T wave : normal no ALICIA qTC: normal prior studies: no acute ischemia The study has been interpreted contemporaneously by me. . Radiology Impression Discussion of test interpretation with radiology: I have reviewed the radiologist's reading. Independent Historian Clinical information obtained from an independent historian. History obtained from or confirmed by: Other (family) External Record Review External record reviewed: Inpatient record Chronic Conditions Patient?s care impacted by: Other (PAF on DOAC) Discharge Plan Discharge Clinical Impression: Weakness, Subdural hygroma Patient Disposition: Home, Self-Care Instructions: Weakness (ED) Additional Instructions: STOP YOUR ELIQUIS FOR 2 WEEKS. IF YOU HAVE ANY CONFUSION, SEVERE HEADACHES, VOMITING, FEVERS PLEASE RETURN. your urine was not infected today we did send a culture and if positive we will call you [facility] WILL FOLLOW UP AND CALL YOU FOR APPOINTMENT IN 4 TO 6 WEEKS TO REPEAT IMAGING OF YOUR BRAIN. THE SUBDURAL HYGROMA (OLD RESOLVING BLOOD) IS AN OLD INJURY THAT NEEDS TO BE MONITORED Prescriptions: No Action Eliquis 5 mg tablet 5 mg PO BID Qty: 60 5RF albuterol sulfate 90 mcg/actuation HFA aerosol inhaler inhalation atorvastatin 40 mg tablet 40 mg PO DAILY ferrous sulfate 325 mg (65 mg iron) tablet 325 mg PO QAM folic acid 1 mg tablet 1 mg PO QAM metformin 850 mg tablet 850 mg PO BID metoprolol succinate 50 mg tablet extended release 24 hr 50 mg PO DAILY multivitamin Tablet 1 tab PO QAM paroxetine HCl 10 mg tablet 10 mg PO DAILY sucralfate 1 gram tablet PO melatonin 5 mg tablet 5 mg PO BEDTIME Breo Ellipta 200-25 mcg/dose blister with device 1 ea inhalation DAILY trazodone 100 mg tablet 100 mg PO BEDTIME lidocaine 5 % adhesive patch,medicated 1 patch topical DAILY amiodarone 200 mg tablet 100 mg PO DAILY quetiapine 100 mg tablet 100 mg PO BEDTIME tamsulosin 0.4 mg capsule 0.4 mg PO DAILY 90 Days Qty: 90 4RF
[2023-07-10 11:41] LABS: MANUAL DIFF FLAG NO
[2023-07-10] MEDS: 0.9 % Sodium Chloride 1,000 ML 999 ML IV (11:42)
[2023-07-10 11:43] LABS: Basophils Percent Auto 0.3 % (0-2); Eosinophils Absolute Auto 0.2 X10*3/uL (0.0-0.4); Eosinophils Percent Auto 3.2 % (0-4); Hematocrit 38.4 % (42.0-52.0); Hemoglobin 12.6 g/dl (14.0-18.0); Imm Gran Abs Auto 0.02 X10*3/uL (0.00-0.03); Imm Gran Pct Auto 0.3 % (0.0-0.4); Lymphocytes Absolute Auto 1.2 X10*3/uL (1.2-4.9); Lymphocytes Percent Auto 19.9 % (20-40); Mean Corpuscular HGB Conc 32.8 g/dl (31.0-36.0); Mean Corpuscular Hemoglobin 32.6 pg (27.0-33.0); Mean Corpuscular Volume 99.2 fL (80.0-98.0); Mean Platelet Volume 10.1 fL (9.4-12.4); Monocytes Absolute Auto 0.8 X10*3/uL (0.1-1.2); Monocytes Percent Auto 12.5 % (2-11); Neutrophils Absolute Auto 3.8 x10*3/uL (2.0-8.3); Neutrophils Percent Auto 63.8 % (45-73); Platelet Count 199 X10*3/uL (160-400); Red Blood Count 3.87 X10*6/uL (4.60-5.80)
[2023-07-10 11:50] LABS: INTERNATIONAL NORM RATIO 1.5 (0.9-1.1); Prothrombin Time 17.9 SEC (11.1-13.3)
[2023-07-10 11:54] LABS: Ammonia 19 umol/L (13-55)
[2023-07-10 12:03] LABS: Alanine Aminotransferase 14 U/L (0-40); Albumin Level 4.4 g/dL (3.5-5.0); Alkaline Phosphatase 71 U/L (39-117); Anion Gap 14 (12-20); Aspartate Amino Transferase 17 U/L (5-37); Bilirubin Direct 0.2 mg/dL (0.0-0.5); Bilirubin Total 0.5 mg/dL (0.0-1.0); Blood Urea Nitrogen 30 mg/dL (9-16); Calcium 9.9 mg/dL (8.4-10.2); Carbon Dioxide 32 mmol/L (22-29); Chloride 99 mmol/L (96-108); Creatinine Clr Calc Pharmacy 53.5; Estimated Glomerular Filt Rate 47; Glucose Random 93 mg/dL (60-115); Magnesium 1.9 mg/dL (1.6-2.6); Potassium 4.2 mmol/L (3.3-5.1); Sodium 141 mmol/L (135-145); Total Protein 7.3 g/dL (6.5-8.0)
[2023-07-10 12:08] LABS: COVID-19 Test Negative (Negative); IDNOW Serial# 08D9AD1C
[2023-07-10 12:22] LABS: IDNOW Serial# 55D5AD1C; Influenza A Negative (Negative)
[2023-07-10 12:23] LABS: Influenza B2 Negative (Negative)
[2023-07-10 12:43] LABS: Appearance Urine Clear; Color Urine Yellow; Glucose Urine UA Negative (Negative); Leukocyte Esterase Urine Small (1+) (Negative); Nitrite Urine Negative (Negative); Specific Gravity - Urine 1.015 (1.005-1.025); UMIC TRIGGER UACC YES; Urine Blood Negative (Negative); Urine Ketones Negative (Negative); Urine Protein Negative (Neg-Trace)
[2023-07-10 12:48] LABS: Bacteria Urine None Seen (None Seen); Hyaline Casts Urine 0-2 /LPF (0-2); RBC Urine 0-2 /HPF (0-2); Squamous Epithelial Cell Urine 0-2 /HPF (0-2); UACC Culture Trigger YES
[2023-07-10 14:32] VITALS: BP 120/95; PULSE 64; RESP 18; TEMP 36.6
--- NOTE | 2023-07-10 15:11 | PC.NURSE ---
Assumed care of patient at 1500, patient is resting comfortably on stretcher offering no complaints to this RN. Calm and cooperative, laughing with family member. Awaiting new orders from provider at this time
== END 2023-07-10 15:34 | disposition home or self-care (01) ==
PROVIDERS: Physician Assistant; Emergency Provider Emergency Medicine; PCP Family Medicine
DX: R53.1 Weakness (principal); G96.00 Cerebrospinal fluid leak, unspecified; E11.9 Type 2 diabetes mellitus without complications; E78.5 Hyperlipidemia, unspecified; I48.0 Paroxysmal atrial fibrillation; Z79.01 Long term (current) use of anticoagulants; Z79.899 Other long term (current) drug therapy; Z79.84 Long term (current) use of oral hypoglycemic drugs; Z11.52 Encounter for screening for COVID-19
CPT/HCPCS: 36415; 70450; 71045; 76706; 80048; 80076; 81001; 82140; 83605; 83735; 85025; 85610; 87040; 87086; 87502; 87635; 93005; 96360; 99284; 99285

== ENCOUNTER 2024-01-26 15:47 | Emergency (ER) | payer MEDICARE, MEDICAID, SELFPAY ==
[2024-01-26 15:58] VITALS: BP 123/61; BP 143/72; PULSE 70; PULSE 76; RESP 18; TEMP 37.2; O2SAT 91; O2SAT 94; BMI 38.5
--- NOTE | 2024-01-26 17:15 | ED.AMS ---
HPI - Altered Mental Status General Chief Complaint: Altered Mental Status Stated Complaint: possible UTI, confusion x3 days Time Seen by Provider: 01/26/24 16:00 Source: patient and family Mode of arrival: ambulatory Limitations: no limitations History of Present Illness HPI narrative: Comes to the emergency room from home via ambulance accompanied by his daughter. According to the patient's daughter, the patient has been more confused than usual, patient confusing days and nights, weaker than usual. At baseline, patient can transfer himself from his bed to the commode. Over the last 3 days he has been unable to do so without assistance due to weakness. According to the patient's daughter, patient has had UTIs in the past and this is how he acts. To their knowledge, patient has not had any fever chills, no nausea vomiting or diarrhea. Patient denies abdominal pain. Related Data Home Medications ?Medication ?Instructions ?Recorded ?Confirmed albuterol sulfate 90 mcg/actuation inhalation 10/25/20 07/05/23 aerosol inhaler atorvastatin 40 mg tablet 40 mg PO DAILY 10/25/20 07/05/23 ferrous sulfate 325 mg (65 mg 325 mg PO QAM 10/25/20 07/05/23 iron) tablet folic acid 1 mg tablet 1 mg PO QAM 10/25/20 07/05/23 metformin 850 mg tablet 850 mg PO BID 10/25/20 07/05/23 metoprolol succinate 50 mg 50 mg PO DAILY 10/25/20 07/05/23 tablet,extended release 24 hr multivitamin 1 tab PO QAM 10/25/20 07/05/23 paroxetine HCl 10 mg tablet 10 mg PO DAILY 10/25/20 07/05/23 sucralfate 1 gram tablet PO 10/25/20 07/05/23 fluticasone furoate 200 1 ea inhalation DAILY 03/07/22 07/05/23 mcg-vilanterol 25 mcg/dose inhalation powder (Breo Ellipta) melatonin 5 mg tablet 5 mg PO BEDTIME 03/07/22 07/05/23 lidocaine 5 % topical patch 1 patch topical DAILY 12/12/22 07/05/23 trazodone 100 mg tablet 100 mg PO BEDTIME 12/12/22 07/05/23 quetiapine 100 mg tablet 100 mg PO BEDTIME 03/30/23 07/05/23 amiodarone 200 mg tablet 100 mg PO DAILY 07/05/23 07/05/23 Previous Rx's ?Medication ?Instructions ?Recorded tamsulosin 0.4 mg capsule 0.4 mg PO DAILY 90 days #90 caps 05/14/23 apixaban 5 mg tablet (Eliquis) 5 mg PO BID #90 tabs 12/27/23 cefuroxime axetil 250 mg tablet 500 mg (2 x 250 mg) PO Q12H #13 01/26/24 tabs Allergies Allergy/AdvReac Type Severity Reaction Status Date / Time acetaminophen Allergy Unknown Unknown Verified 01/26/24 16:17 [Excedrin Extra Strength] caffeine Allergy Unknown Unknown Verified 01/26/24 16:17 [Excedrin Extra Strength] aspirin [ASPIRIN] AdvReac Unknown UNKNOWN Verified 01/26/24 16:17 Review of Systems Review of Systems: Constitutional : No Weight loss, No Fever, No Chills, No Night Sweats, No Fatigue, No Malaise per family, patient confused ENT/Mouth : No Hearing loss, No Ear Pain, No Nasal Congestion, No Sinus Pain, No Hoarseness, No sore throat, No Rhinorrhea, No Swallowing Difficulty Eyes: No Eye Pain, No Swelling, No Redness, No Foreign Body, No Discharge, No Vision Changes Cardiovascular : No Chest Pain, No SOB, No Dyspnea on Exertion, No Orthopnea, No Edema, No Palpitations Respiratory : No Cough, No Sputum, No Wheezing, No Smoke Exposure, No Dyspnea Gastrointestinal : No Nausea, No Vomiting, No Diarrhea, No Constipation, No abdominal Pain, No Hematochezia, No Melena Genitourinary : no irregular bleeding, No Dysuria, No Urinary Frequency, No Hematuria, No Urinary Incontinence, No Urgency, No Flank Pain, No Urinary Flow Changes, No Hesitancy Musculoskeletal : Patient can planning of lower extremity pain, patient known to have DVTs, currently on Eliquis Skin : No Skin Lesions, No rash Neuro : No Weakness, No Numbness, No Paresthesias, No Loss of Consciousness, No Dizziness, No Headache Psych : No Anxiety/Panic, No Depression, No SI/HI/AH/VH, No Social Issues, Heme/Lymph: No Bruising, No Bleeding,No Lymphadenopathy Endocrine : No Polyuria, No Polydipsia, No Temperature Intolerance [facility] Past Medical History Medical History Paroxysmal atrial fibrillation Low back pain Fatigue Arthritis Asthma Diabetes Social History Social History Alcohol intake: current Alcohol intake frequency: does not drink Patient Tobacco Use Status: Never used Tobacco Advance Directives: Yes Advance Directives Information Provided: No Advance Directives on File: No Physical Exam ED Vital Signs: Vital Signs - 24 hr 01/26/24 15:58 01/26/24 17:54 Temperature 99.0 F 98.4 F Pulse Rate 76 63 Respiratory Rate 18 64 H Blood Pressure 123/61 127/59 L Pulse Oximetry 91 L 90 L Oxygen Delivery Method Room Air Room Air BMI result Body Mass Index 38.5 Const Other: Appearance: Alert. No acute distress, weak, barely able to sit up by himself Eyes: Pupils equal, round and reactive to light. ENT: Pharynx normal. Neck: Normal inspection. Neck supple. No lymph nodes noted. No crepitus CVS: Normal heart rate and rhythm. Pulses normal. Normal S1 and S2 Respiratory: No respiratory distress. Breath sounds normal. No Wheezing. No rales Abdomen: Soft and nontender. No rigidity. No distention. Skin: Skin warm and dry. Normal skin color. Normal skin turgor. Extremities: No lower extremity edema. No Lacerations. No Rash Neuro:No motor deficit. No sensory deficit. Moving all extremities. No slurred speech. CN 2 through 12 grossly intact Psych: calm, cooperative, normal affect Medical Decision Making Medical Decision Making MDM Narrative: -my interpretation of labs: White blood cell count normal, chemistry within normal limits, LFTs normal, urinalysis shows a small amount of leukocyte esterase and a large amount of white blood cells.. No bacteria were seen. On July 10, patient had a similar looking urinalysis, microbiology results are not show any growth. However, given that the patient is symptomatic, we will go ahead and treat as a UTI. Patient given the 1st dose of cefuroxime in the ED. -patient was walked in his room. At baseline, the patient only walks a few steps. Here in the ED, according to the daughter patient is back to baseline. Patient has no complaints. Differential Diagnosis Differential Diagnoses: The differential diagnosis associated with the presentation includes (UTI, viral URI, the compensation) Admission/Observation Consideration of admission/observation: Escalation of care including admission/observation considered (Given patient's history and presentation, admission was considered) Lab Data MDM Lab Attestation statement: I reviewed the patient's lab results. 01/26/24 17:48 01/26/24 17:48 Labs: Lab Results 01/26/24 Range/Units 17:48 WBC 6.2 (4.8-10.8) X10*3/uL RBC 3.62 L (4.60-5.80) X10*6/uL Hgb 11.9 L (14.0-18.0) g/dl Hct 35.1 L (42.0-52.0) % MCV 97.0 (80.0-98.0) fL MCH 32.9 (27.0-33.0) pg MCHC 33.9 (31.0-36.0) g/dl RDW 13.2 (11.0-16.0) % Plt Count 199 (160-400) X10*3/uL MPV 11.3 (9.4-12.4) fL Immature Gran % (Auto) 0.8 H (0.0-0.4) % Neut % (Auto) 70.6 (45-73) % Lymph % (Auto) 14.0 L (20-40) % [place] % (Auto) 12.0 H (2-11) % Eos % (Auto) 2.1 (0-4) % Baso % (Auto) 0.5 (0-2) % Lymph # (Auto) 0.9 L (1.2-4.9) X10*3/uL [place] # (Auto) 0.7 (0.1-1.2) X10*3/uL Eos # (Auto) 0.1 (0.0-0.4) X10*3/uL Baso # (Auto) 0.0 (0.0-0.2) X10*3/uL Abs Immat Gran (auto) 0.05 H (0.00-0.03) X10*3/uL Absolute Neuts (auto) 4.4 (2.0-8.3) x10*3/uL Absolute Nucleated RBC 0.000 (0.0-0.012) X10*3/uL Nucleated RBC % (auto) 0.0 (0.0-0.2) /100WBC Smear Tech's Comments VERIFIED Sodium 141 (135-145) mmol/L Potassium 4.7 (3.3-5.1) mmol/L Chloride 102 (96-108) mmol/L Carbon Dioxide 28 (22-29) mmol/L Anion Gap 16 (12-20) BUN 24 H (9-16) mg/dL Creatinine 1.33 (0.5-1.4) mg/dL Estim Creat Clear Calc 57.1 Estimated GFR 52 Random Glucose 167 H (60-115) mg/dL Calcium 9.7 (8.4-10.2) mg/dL Total Bilirubin 0.4 (0.0-1.0) mg/dL Direct Bilirubin 0.2 (0.0-0.5) mg/dL AST 20 (5-37) U/L ALT 17 (0-40) U/L Alkaline Phosphatase 70 (39-117) U/L Troponin I High Sens 7.5 (<3.5-35.0) ng/L Total Protein 6.7 (6.5-8.0) g/dL Albumin 3.5 (3.5-5.0) g/dL Urine Color Yellow Urine Appearance Clear Urine pH 6.0 (5.0-9.0) Ur Specific [place] 1.010 (1.005-1.025) Urine Protein Negative (Neg-Trace) mg/dL Urine Glucose (UA) Negative (Negative) mg/dL Urine Ketones Negative (Negative) mg/dL Urine Blood Negative (Negative) Urine Nitrite Negative (Negative) Ur Leukocyte Esterase Small (1+) H (Negative) Urine RBC 0-2 (0-2) /HPF Urine WBC 11-20 H (0-5) /HPF Ur Squamous Epith Cells 0-2 (0-2) /HPF Urine Bacteria None Seen (None Seen) Hyaline Casts 0-2 (0-2) /LPF COVID-19 (LOKESH) Negative (Negative) COVID-19 Clin Com See Note Influenza Type A (SHANIQUA) Negative (Negative) Influenza Type B (SHANIQUA) Negative (Negative) Influenza A & B Note See Note Critical Care Time Critical Care Time Critical Care Time: Yes Total Critical Care Time: 35 Attestation: I have personally provided critical care time. Time includes review of lab data, radiology results, discussion with consultants, and monitoring for potential decompensation. Intervention performed as documented. Discharge Plan Discharge Clinical Impression: Acute UTI Patient Disposition: Home, Self-Care Instructions: Urinary Tract Infection in Older Adults (ED) Additional Instructions: Please follow-up with your primary care physician tomorrow. If you have any worsening or new symptoms, please return to the emergency room or call 911 Prescriptions: New cefuroxime axetil 250 mg tablet 500 mg PO Q12H Qty: 13 0RF No Action Eliquis 5 mg tablet 5 mg PO BID Qty: 90 3RF albuterol sulfate 90 mcg/actuation HFA aerosol inhaler inhalation atorvastatin 40 mg tablet 40 mg PO DAILY ferrous sulfate 325 mg (65 mg iron) tablet 325 mg PO QAM folic acid 1 mg tablet 1 mg PO QAM metformin 850 mg tablet 850 mg PO BID metoprolol succinate 50 mg tablet extended release 24 hr 50 mg PO DAILY multivitamin Tablet 1 tab PO QAM paroxetine HCl 10 mg tablet 10 mg PO DAILY sucralfate 1 gram tablet PO melatonin 5 mg tablet 5 mg PO BEDTIME Breo Ellipta 200-25 mcg/dose blister with device 1 ea inhalation DAILY trazodone 100 mg tablet 100 mg PO BEDTIME lidocaine 5 % adhesive patch,medicated 1 patch topical DAILY amiodarone 200 mg tablet 100 mg PO DAILY quetiapine 100 mg tablet 100 mg PO BEDTIME tamsulosin 0.4 mg capsule 0.4 mg PO DAILY 90 Days Qty: 90 4RF Print Language: Danish
--- NOTE | 2024-01-26 17:17 | ECG_ITS ---
Test Reason : AMS Blood Pressure : / mmHG Vent. Rate : 064 BPM Atrial Rate : 064 BPM P-R Int : 212 ms QRS Dur : 088 ms QT Int : 426 ms P-R-T Axes : 078 -18 021 degrees QTc Int : 439 ms Sinus rhythm with 1st degree A-V block Otherwise normal ECG When compared with ECG of 10-JUL-2023 10:56, No significant change was found Referred By: Latha Avila Electronically Signed By:DEMETRIS GOINS
[2024-01-26 17:54] VITALS: BP 127/59; PULSE 63; RESP 64; TEMP 36.9; O2SAT 90
[2024-01-26 18:13] LABS: Appearance Urine Clear; Color Urine Yellow; Glucose Urine UA Negative (Negative); Leukocyte Esterase Urine Small (1+) (Negative); Nitrite Urine Negative (Negative); UMIC TRIGGER UACC YES; Urine Blood Negative (Negative); Urine Ketones Negative (Negative); Urine Protein Negative (Neg-Trace)
[2024-01-26 18:22] LABS: Bacteria Urine None Seen (None Seen); Hyaline Casts Urine 0-2 /LPF (0-2); RBC Urine 0-2 /HPF (0-2); Squamous Epithelial Cell Urine 0-2 /HPF (0-2); UACC Culture Trigger YES
[2024-01-26 18:26] LABS: COVID-19 Test Negative (Negative); IDNOW Serial# 08D9AD1C
[2024-01-26 18:27] LABS: IDNOW Serial# 152EDE1D; Influenza A Negative (Negative); Influenza B2 Negative (Negative)
[2024-01-26 18:29] LABS: Alanine Aminotransferase 17 U/L (0-40); Albumin Level 3.5 g/dL (3.5-5.0); Alkaline Phosphatase 70 U/L (39-117); Anion Gap 16 (12-20); Aspartate Amino Transferase 20 U/L (5-37); Bilirubin Direct 0.2 mg/dL (0.0-0.5); Bilirubin Total 0.4 mg/dL (0.0-1.0); Blood Urea Nitrogen 24 mg/dL (9-16); Calcium 9.7 mg/dL (8.4-10.2); Carbon Dioxide 28 mmol/L (22-29); Chloride 102 mmol/L (96-108); Creatinine Clr Calc Pharmacy 57.1; Estimated Glomerular Filt Rate 52; Glucose Random 167 mg/dL (60-115); Potassium 4.7 mmol/L (3.3-5.1); Sodium 141 mmol/L (135-145); Total Protein 6.7 g/dL (6.5-8.0)
[2024-01-26 18:35] LABS: Troponin-I High Sensitivity 7.5 ng/L (<3.5-35.0)
[2024-01-26 18:50] LABS: Basophils Percent Auto 0.5 % (0-2); Eosinophils Absolute Auto 0.1 X10*3/uL (0.0-0.4); Eosinophils Percent Auto 2.1 % (0-4); Hematocrit 35.1 % (42.0-52.0); Hemoglobin 11.9 g/dl (14.0-18.0); Imm Gran Abs Auto 0.05 X10*3/uL (0.00-0.03); Imm Gran Pct Auto 0.8 % (0.0-0.4); Lymphocytes Absolute Auto 0.9 X10*3/uL (1.2-4.9); MANUAL DIFF FLAG SCAN; Mean Corpuscular HGB Conc 33.9 g/dl (31.0-36.0); Mean Corpuscular Hemoglobin 32.9 pg (27.0-33.0); Mean Platelet Volume 11.3 fL (9.4-12.4); Monocytes Absolute Auto 0.7 X10*3/uL (0.1-1.2); Neutrophils Absolute Auto 4.4 x10*3/uL (2.0-8.3); Neutrophils Percent Auto 70.6 % (45-73); PLT CLUMP 1; Red Blood Count 3.62 X10*6/uL (4.60-5.80); Red Cell Distribution Width 13.2 % (11.0-16.0); SCAN SMEAR FLAG 1
[2024-01-26 18:51] LABS: Platelet Count 199 X10*3/uL (160-400); White Blood Count 6.2 X10*3/uL (4.8-10.8)
--- NOTE | 2024-01-26 18:57 | PC.NURSE ---
pt from home via ambulance. per daughter at his bedside- reports confusion x3 days and foul smelling urine. pt has hx of UTIs and showed the same symptoms. pt alert, oriented to self, denies pain, his daughter remains at bedside.
[2024-01-26 19:06] LABS: SLIDE REVIEW VERIFIED
--- NOTE | 2024-01-26 19:23 | PC.NURSE ---
Assumed care of pt. Pt noted to be ambulating with steady gait, with cane, on this RN arrival to unit. Continuing plan of care to medicate and discharge pt to home.
[2024-01-26] MEDS: cefuroxime axetiL 250 MG TABLET PO (19:30)
[2024-01-26 19:34] VITALS: BP 127/59; PULSE 63; RESP 16; TEMP 36.9; O2SAT 90
== END 2024-01-26 19:36 | disposition home or self-care (01) ==
PROVIDERS: Emergency Provider Emergency Medicine
DX: N39.0 Urinary tract infection, site not specified (principal); E11.9 Type 2 diabetes mellitus without complications; I48.0 Paroxysmal atrial fibrillation; Z79.84 Long term (current) use of oral hypoglycemic drugs; Z79.899 Other long term (current) drug therapy; Z79.01 Long term (current) use of anticoagulants; Z20.822 Contact with and (suspected) exposure to COVID-19; Z11.52 Encounter for screening for COVID-19
CPT/HCPCS: 36415; 51701; 80048; 80076; 81001; 84484; 85025; 87086; 87502; 87635; 93005; 99283; 99284

== ENCOUNTER → 2024-01-26 17:17 | Outpatient (BNV) | payer MEDICARE, MEDICAID, SELFPAY | PROVIDERS: Emergency Provider Emergency Medicine; Visit Provider Internal Medicine | DX: R41.82 Altered mental status, unspecified (principal) | CPT/HCPCS: 93010 ==

== ENCOUNTER 2024-03-10 15:14 | Outpatient (REF) | payer MEDICARE, MEDICAID, SELFPAY ==
[2024-03-10 16:46] LABS: Anion Gap 15 (12-20); Blood Urea Nitrogen 23 mg/dL (9-16); Calcium 9.4 mg/dL (8.4-10.2); Carbon Dioxide 29 mmol/L (22-29); Chloride 106 mmol/L (96-108); Estimated Glomerular Filt Rate 40; Glucose Random 130 mg/dL (60-115); Sodium 145 mmol/L (135-145)
== END 2024-03-10 15:15 | disposition home or self-care (01) ==
LOC: HO.HHCL 15:14
PROVIDERS: Visit Provider Internal Medicine
DX: Z00.00 Encounter for general adult medical examination without abnormal findings (principal)
CPT/HCPCS: 36415; 80048

== ENCOUNTER 2024-04-28 11:13 | Outpatient (AMB) | payer MEDICARE, MEDICAID, SELFPAY ==
[2024-04-28 11:18] VITALS: BMI 38.4
--- NOTE | 2024-04-28 11:18 | A.OFFVIS_ITS ---
Vital Signs 04/28/24 11:18 Height 5 ft 9 in Weight 260 lb BMI 38.4 Intake Visit Reasons: N/P Rt knee pain/ no injury Intake Note: Wili is a 78 year old male who presents today as a new patient with complaints of right knee pain. Patient reports that he has had pain in the right knee for many years now. Hx of cortisone injections in the right knee about 1-2 years ago. These inections were not helpful. He has had the left knee replaced about 20+ years ago Allergies acetaminophen [Excedrin Extra Strength] Allergy (Unknown, Verified 01/26/24 16:17) Unknown caffeine [Excedrin Extra Strength] Allergy (Unknown, Verified 01/26/24 16:17) Unknown aspirin [ASPIRIN] Adverse Reaction (Unknown, Verified 01/26/24 16:17) UNKNOWN HPI HPI N/P Rt knee pain/ no injury: Details: 78 yo M with right knee pain for years. He states he has difficulty walking but just not because of his knee. He has back pain and very poor balance. He has multiple medical comorbidities including DM and afib. [facility] Medical History Paroxysmal atrial fibrillation Low back pain Fatigue Arthritis Asthma Diabetes Social History Alcohol intake: current Alcohol intake frequency: does not drink Patient Tobacco Use Status: Never used Tobacco Physical Exam Vital Signs: BMI result Body Mass Index 38.4 Extrem Other: Severe varus right knee with medial TTP. Office Procedures Joint Injection/Drain Joint Injection/Drain Details: Injected 1 mL of Decadron and 3 mL 1% lidocaine and 3 mL of 0.25% Marcaine. Site was prepped using aseptic technique. Patient tolerated the procedure well. Primary Site: right knee Approach Used: anterolateral Coding 22345 - Large joint Procedure code (CPT) selection complete Results Reviewed Results Reviewed: I personally reviewed relevant radiographs. Severe right knee OA Assessment & Plan Assessment & Plan (1) Arthritis of right knee: Code(s): M17.11 - Unilateral primary osteoarthritis, right knee Category: Medical Plan: Severe right knee OA. Wili is not a surgical cndidate. I recommend injections. I warned him of the hyperglycemic effects of steroids. (2) Diabetes: Code(s): E11.9 - Type 2 diabetes mellitus without complications Category: Medical Plan: I warned him of the hyperglycemic effects of steroids. Coding Level of Care Code New Pt Level 4 (32216) Diagnoses Arthritis of right knee M17.11 Diabetes E11.9 CPT Codes Coding - 04070 Large joint: 78184 - Large joint ([id number])
== END 2024-04-28 12:01 | disposition home or self-care (01) ==
PROVIDERS: Visit Provider Orthopaedic Surgery
DX: M17.11 Unilateral primary osteoarthritis, right knee (principal); E11.9 Type 2 diabetes mellitus without complications
CPT/HCPCS: 20610; 99204

== ENCOUNTER → 2024-04-28 11:13 | Outpatient (BNVA) | payer MEDICARE, MEDICAID, SELFPAY | PROVIDERS: Visit Provider Orthopaedic Surgery | DX: M17.11 Unilateral primary osteoarthritis, right knee (principal); E11.9 Type 2 diabetes mellitus without complications | CPT/HCPCS: 20610; 99202; J0665; J1100 ==

== ENCOUNTER 2024-12-16 13:34 | Inpatient (IN) | payer MEDICARE, SELFPAY ==
[2024-12-16] VITALS (7 sets, daily range): BP systolic 99–144; BP diastolic 49–78; PULSE 71–80; RESP 15–20; TEMP 36.9–37.3; O2SAT 88–97; BMI 39.2
--- NOTE | ~2024-12-16 | XR_ITS ---
EXAMINATION: XR CHEST 2 VIEWS HISTORY: fever COMPARISON: Comparison is made with the prior examination dated 07/10/2023. FINDINGS: AP and lateral views of the chest are submitted. The patient is limited by difficulty in patient positioning, particularly on the lateral view. Pulmonary vascular prominence may be related to AP technique. No definite airspace opacity. There is persistent blunting of the left lateral costophrenic angle, consistent with pleural thickening. No pleural effusion or pneumothorax. The heart is normal in size. The bones are intact. XR/XR chest 2V IMPRESSION: Limited examination as described. No definite acute abnormality. Electronically signed by: Johnnie Haley MD 12/16/2024 03:30 PM EDT RP
--- NOTE | 2024-12-16 13:44 | ECG_ITS ---
Test Reason : SOB Blood Pressure : */* mmHG Vent. Rate : 71 BPM Atrial Rate : 71 BPM P-R Int : 218 ms QRS Dur : 88 ms QT Int : 412 ms P-R-T Axes : 77 -1 31 degrees QTcB Int : 447 ms Artifact in tracing Sinus rhythm with 1st degree A-V block Otherwise normal ECG When compared with ECG of 26-Jan-2024 17:28, No significant change was found Referred By: Joceline Mcclain Electronically Signed By: DEMETRIS GOINS
--- NOTE | 2024-12-16 13:45 | ED_ITS ---
HPI - General Adult General Chief complaint: General Medical Stated complaint: flu like symptoms and weakness, 2L via NC Time Seen by Provider: 12/16/24 13:44 Source: patient, family, EMS, RN notes reviewed and old records reviewed Mode of arrival: EMS Limitations: no limitations History of Present Illness ED Provider: Johny HPI narrative: Patient is an 79-year-old male with history of DM, asthma, arthritis, paroxysmal afib on Eliquis presenting to the ED from home where he lives with family for fever, shortness of breath, nausea, sore throat, slightly more confused than baseline since yesterday. Patient is non-ambulatory at baseline, per family patient does not have a formal diagnosis of dementia but is confused at baseline. Harry states he did eat a normal amount of food this morning, but she had to feed it to him and he typically feeds himself. Denies vomiting or diarrhea. She states his cough has been productive. Harry also reports that her sister recently tested positive for flu and that many family members have been sick with similar symptoms since that time. MD complaint: fever, shortness of breath Onset (ago): day(s) Related Data Home Medications ?Medication ?Instructions ?Recorded ?Confirmed albuterol sulfate 90 mcg/actuation inhalation 10/25/20 07/05/23 aerosol inhaler atorvastatin 40 mg tablet 40 mg PO DAILY 10/25/20 07/05/23 ferrous sulfate 325 mg (65 mg 325 mg PO QAM 10/25/20 07/05/23 iron) tablet folic acid 1 mg tablet 1 mg PO QAM 10/25/20 07/05/23 metformin 850 mg tablet 850 mg PO BID 10/25/20 07/05/23 metoprolol succinate 50 mg 50 mg PO DAILY 10/25/20 07/05/23 tablet,extended release 24 hr multivitamin 1 tab PO QAM 10/25/20 07/05/23 paroxetine HCl 10 mg tablet 10 mg PO DAILY 10/25/20 07/05/23 sucralfate 1 gram tablet PO 10/25/20 07/05/23 fluticasone furoate 200 1 ea inhalation DAILY 03/07/22 07/05/23 mcg-vilanterol 25 mcg/dose inhalation powder (Breo Ellipta) melatonin 5 mg tablet 5 mg PO BEDTIME 03/07/22 07/05/23 lidocaine 5 % topical patch 1 patch topical DAILY 12/12/22 07/05/23 trazodone 100 mg tablet 100 mg PO BEDTIME 12/12/22 07/05/23 quetiapine 100 mg tablet 100 mg PO BEDTIME 03/30/23 07/05/23 amiodarone 200 mg tablet 100 mg PO DAILY 07/05/23 07/05/23 Previous Rx's ?Medication ?Instructions ?Recorded tamsulosin 0.4 mg capsule 0.4 mg PO DAILY 90 days #90 caps 05/14/23 cefuroxime axetil 250 mg tablet 500 mg (2 x 250 mg) PO Q12H #13 01/26/24 tabs apixaban 5 mg tablet (Eliquis) 5 mg PO BID #60 tabs 12/01/24 Allergies Allergy/AdvReac Type Severity Reaction Status Date / Time acetaminophen Allergy Unknown Unknown Verified 12/16/24 14:02 [Excedrin Extra Strength] caffeine Allergy Unknown Unknown Verified 01/26/24 16:17 [Excedrin Extra Strength] aspirin [ASPIRIN] AdvReac Unknown UNKNOWN Verified 01/26/24 16:17 Review of Systems 2 Review of Systems: As per HPI Yes all other systems are reviewed and are negative Constitutional: Constitutional: Reports as per HPI PMFSH Past Medical History Medical History Paroxysmal atrial fibrillation Low back pain Fatigue Arthritis Asthma Diabetes Social History Social History Alcohol intake: current Alcohol intake frequency: does not drink Patient Tobacco Use Status: Never used Tobacco Smoked in Last 30 Days: No Use of substances other than those prescribed or required for medical reasons: No Advance Directives: No Advance Directives Information Provided: Yes Physical Exam ED Vital Signs: Vital Signs - 24 hr 12/16/24 13:59 12/16/24 18:00 12/16/24 19:06 Temperature 98.5 F Pulse Rate 71 75 Respiratory Rate 18 18 Blood Pressure 99/49 L 135/72 Pulse Oximetry 97 88 L 96 Oxygen Delivery Method Nasal Cannula Room Air Room Air Oxygen Flow Rate 2 BMI result Body Mass Index 39.2 Vital signs have been reviewed and appear to be correct. Blood pressure slightly low. Heart rate normal. Respiratory rate normal. Temperature normal. Oxygen saturation normal. Const General: cooperative, no acute distress and other (drowsy, wakes to voice, generalized weakness) Orientation/consciousness: oriented to person Limitations: altered mental status and other limitations (non-ambulatory at baseline) HENMT Head: Yes normocephalic and Yes atraumatic Ears: external ears normal General nose exam: Normal external nose present Face and sinus: Yes face symmetric Mouth: oropharynx normal and moist mucous membranes Throat: Yes uvula midline Eyes Pupils: Equal, round and reactive pupils present Neck Neck: Yes normal visual inspection and Yes supple Resp Effort & Inspection: normal respiratory effort and able to speak in complete sentences Auscultation: clear to auscultation bilaterally Cardio Rate: regular rate Rhythm: regular rhythm Heart sounds: S1 normal heart sound present and S2 normal heart sound present GI Palpation (GI): Soft to palpation and nontender Auscultation: normoactive bowel sounds General: Yes no CVA tenderness Back/Spine/Pelvis Back: no CVA tenderness Skin General skin exam: elasticity normal and turgor normal Neuro General: oriented to person, moves all extremities, no focal motor deficits and CN's II-XI intact bilaterally Cranial nerves: Yes Equal, round and reactive pupils present Cognition (Neuro): normal cognition Extrem General: Yes full ROM, Yes no pedal edema and Yes no calf tenderness Psych Mental Status: mental status grossly normal Affect: normal affect Thought process: Normal thought process present Medications Administered Discontinued Medications Generic Name Dose Route Start Last Admin Trade Name Freq PRN Reason Stop Dose Admin Sodium Chloride 1,000 mls @ 999 mls/hr 12/16/24 16:00 12/16/24 17:39 Ns IV 12/16/24 17:00 Infused .Q1H1M MELIZA Infusion Oseltamivir Phosphate 75 mg 12/16/24 18:44 12/16/24 19:04 Oseltamivir Phosphate 75 Mg Capsule PO 12/16/24 18:45 75 mg ONCE ONE Administration Medical Decision Making Medical Decision Making [facility] Narrative: Patient is an 79-year-old male with history of DM, asthma, arthritis, paroxysmal afib on Eliquis presenting to the ED from home where he lives with family for fever, shortness of breath, nausea, sore throat, slightly more confused than baseline. On exam patient is awake, A+Ox3, BP low, VS otherwise WNL, afebrile, normal neurological exam without focal deficits, physical exam findings as above. Given reported symptoms and physical exam findings, initial differential includes but is not limited to viral illness, flu, covid, RSV, strep pharyngitis, UTI, pneumonia. Viral serology positive for influenza A. Labs notable for no leukocytosis, anemia not at transfusion level, DEXTER. IV fluids ordered. X-ray chest notable for limited exam, no obvious pneumonia. My interpretation is in agreement with the radiologist's interpretation. Patient noted to be hypoxic on room air at 84%, will require admission. Differential Diagnosis Differential Diagnoses: The differential diagnosis associated with the presentation includes As per [facility] Admission/Observation Consideration of admission/observation: Escalation of care including admission/observation considered Consult Healthcare Provider Management of the patient was discussed with: Hospitalist Lab Data [facility] Lab Attestation statement: I reviewed the patient's lab results. As per [facility] 12/16/24 14:30 12/16/24 14:30 Labs: Lab Results 12/16/24 Range/Units 14:30 WBC 5.1 (4.8-10.8) X10*3/uL RBC 3.23 L (4.60-5.80) X10*6/uL Hgb 10.5 L (14.0-18.0) g/dl Hct 31.8 L (42.0-52.0) % MCV 98.5 H (80.0-98.0) fL MCH 32.5 (27.0-33.0) pg MCHC 33.0 (31.0-36.0) g/dl RDW 13.4 (11.0-16.0) % Plt Count 181 (160-400) X10*3/uL MPV 10.0 (9.4-12.4) fL Immature Gran % (Auto) 0.4 (0.0-0.4) % Neut % (Auto) 70.9 (45-73) % Lymph % (Auto) 12.1 L (20-40) % [place] % (Auto) 16.0 H (2-11) % Eos % (Auto) 0.2 (0-4) % Baso % (Auto) 0.4 (0-2) % Lymph # (Auto) 0.6 L (1.2-4.9) X10*3/uL [place] # (Auto) 0.8 (0.1-1.2) X10*3/uL Eos # (Auto) 0.0 (0.0-0.4) X10*3/uL Baso # (Auto) 0.0 (0.0-0.2) X10*3/uL Abs Immat Gran (auto) 0.02 (0.00-0.03) X10*3/uL Absolute Neuts (auto) 3.6 (2.0-8.3) x10*3/uL Absolute Nucleated RBC 0.000 (0.0-0.012) X10*3/uL Nucleated RBC % (auto) 0.0 (0.0-0.2) /100WBC Sodium 142 (135-145) mmol/L Potassium 4.3 (3.3-5.1) mmol/L Chloride 109 H (96-108) mmol/L Carbon Dioxide 26 (22-29) mmol/L Anion Gap 11 L (12-20) BUN 27 H (9-16) mg/dL Creatinine 1.74 H (0.5-1.4) mg/dL Estim Creat Clear Calc 40.7 Estimated GFR 38 Random Glucose 99 (60-115) mg/dL Lactic Acid 1.9 (0.5-2.0) mmol/L Calcium 8.5 D (8.4-10.2) mg/dL Magnesium 1.6 (1.6-2.6) mg/dL Total Bilirubin 0.4 (0.0-1.0) mg/dL AST 34 (5-37) U/L ALT 19 (0-40) U/L Alkaline Phosphatase 68 (39-117) U/L Troponin I High Sens 16.4 D (<3.5-35.0) ng/L Total Protein 6.2 L (6.5-8.0) g/dL Albumin 3.4 L (3.5-5.0) g/dL Influenza Type A (PCR) POSITIVE A (Negative) Influenza Type B (PCR) NEGATIVE (Negative) RSV RNA Qual (PCR) NEGATIVE (Negative) SARS-CoV-2 RNA (RT-PCR) NEGATIVE (Negative) S. pyogenes GrpA SHANIQUA Negative (Negative) Independent Interpretation I performed an independent interpretation of an: Plain X-Ray Interpretation: No obvious pneumonia on CXR Radiology Impression Discussion of test interpretation with radiology: I have reviewed the radiologist's reading. Radiologist Impression: XR/XR chest 2V IMPRESSION: Limited examination as described. No definite acute abnormality. External Record Review External record reviewed: Inpatient record, Office record and Outpatient record Prescription Management I considered prescription management with: Antiviral Discharge Plan Discharge Print Language: Uzbek
[2024-12-16 14:37] LABS: MANUAL DIFF FLAG NO
[2024-12-16 14:40] LABS: Basophils Percent Auto 0.4 % (0-2); Eosinophils Percent Auto 0.2 % (0-4); Hematocrit 31.8 % (42.0-52.0); Hemoglobin 10.5 g/dl (14.0-18.0); Imm Gran Abs Auto 0.02 X10*3/uL (0.00-0.03); Imm Gran Pct Auto 0.4 % (0.0-0.4); Lymphocytes Absolute Auto 0.6 X10*3/uL (1.2-4.9); Lymphocytes Percent Auto 12.1 % (20-40); Mean Corpuscular Hemoglobin 32.5 pg (27.0-33.0); Mean Corpuscular Volume 98.5 fL (80.0-98.0); Monocytes Absolute Auto 0.8 X10*3/uL (0.1-1.2); Neutrophils Absolute Auto 3.6 x10*3/uL (2.0-8.3); Neutrophils Percent Auto 70.9 % (45-73); Platelet Count 181 X10*3/uL (160-400); Red Blood Count 3.23 X10*6/uL (4.60-5.80); Red Cell Distribution Width 13.4 % (11.0-16.0); White Blood Count 5.1 X10*3/uL (4.8-10.8)
[2024-12-16 14:48] LABS: IDNOW Serial# 58CA691E; Strep A Nucleic Acid Negative (Negative)
[2024-12-16 14:57] LABS: Alanine Aminotransferase 19 U/L (0-40); Albumin Level 3.4 g/dL (3.5-5.0); Alkaline Phosphatase 68 U/L (39-117); Anion Gap 11 (12-20); Aspartate Amino Transferase 34 U/L (5-37); Bilirubin Total 0.4 mg/dL (0.0-1.0); Blood Urea Nitrogen 27 mg/dL (9-16); Calcium 8.5 mg/dL (8.4-10.2); Carbon Dioxide 26 mmol/L (22-29); Chloride 109 mmol/L (96-108); Creatinine Clr Calc Pharmacy 40.7; Estimated Glomerular Filt Rate 38; Glucose Random 99 mg/dL (60-115); Lactic Acid 1.9 mmol/L (0.5-2.0); Magnesium 1.6 mg/dL (1.6-2.6); Potassium 4.3 mmol/L (3.3-5.1); Sodium 142 mmol/L (135-145); Total Protein 6.2 g/dL (6.5-8.0)
[2024-12-16 15:01] LABS: Troponin-I High Sensitivity 16.4 ng/L (<3.5-35.0)
[2024-12-16 15:23] LABS: Influenza A PCR POSITIVE (Negative); Influenza B PCR NEGATIVE (Negative); Resp Syncy Virus RNA Qual PCR NEGATIVE (Negative); SARS COV2 PCR INHOUSE NEGATIVE (Negative)
[2024-12-16] MEDS: 0.9 % Sodium Chloride 1,000 ML 999 ML IV (16:07)
--- OUTSIDE RECORDS SUMMARY | 2024-12-16 17:40 | XMS_ITS | Encounter Summary ---
Author Organization [employer] Address [address] [place] [address] 7 [place] [address] Care Team Providers Care Bath Mixer Name Role Phone Christa Peng DO Primary Care Provider [phone] Reason for Visit * Reason Onset Date Comments Forms/questionnaires 11/09/2022 Encounter Details Date Type Department Care Team (Late st Contact Info) Description 11/09/2022 Telephone [facility] MEDICINE [address] [place], [place] [phone] Christa Peng DO [address] [place], [place] [phone] Forms/questionnaires Social History Tobacco Use Types Packs/Day Years Used Date Smoking Tobacco: Never Smokeless Tobacco: Never Alcohol Use Standard Drinks/Week Comments Never 0 (1 standard drink = 0.6 oz pur e alcohol) PHQ-2 Answer Date Recorded Patient Health Questionnaire-2 Score 0 11/09/2022 Depression Answer Date Recorded Patient Health Questionnaire-2 Score 0 11/09/2022 Sex and Gender Information Value Date Recorded Sex Assigned at Male 08/07/2022 10:18 AM EDT Legal Sex Male 10:18 AM EDT Gender Identity Male 08/07/2022 10:18 AM EDT Sexual Orientation Straight 08/07/2022 10 :18 AM EDT COVID-19 Exposure Response Date Recorded In the last 10 days, have yo u been in contact with someone who was confirmed or suspected to have Coronavirus/COVID-19? No / Unsure 11/09/2022 8:36 AM EST documented as of this encounter Miscellaneous Notes * Telephone Encounter - Yael Tobar - 11/24/2022 9:15 AM EST PA for Lidocaine patches processed through Cover my meds and approved. Pharmacy notified. * Telephone Encounter - Christa Peng DO - 11/21/2022 2:55 PM EST He was rx'd lidocaine patch in the past (medication on med list in next gen). Please initiate PA. Thank you * Telephone Encounter - Yael Tobar - 11/10/2022 11:50 AM EST Message sent to PCP regarding Lidocaine PA since it's not on pt medication list. * Telephone Encounter - Marisa Lehman LPN - 11/10/2022 11:42 AM EST We have the Med B form for the Duo-Neb which is going up for PCP signature in yellow folder. We do not do PA for Lidocaine patches that would be Yael Tobar and I am sure if there was a request she would have submitted paperwork for it. Please check with her. Thank you. * Telephone Encounter - Angelica Castellanos - 11/09/2022 3:51 PM EST Tc from [place] stated pt need a Pa for Lidocaine patches. Also [place] stated pt need a Med b form for Ipra-albuterol for nebulizer machine. PCP DR. Peng documented in this encounter Plan of Treatment Not on file documented as of this encounter Visit Diagnoses Not on filedocumented in this encounter Care Teams Bath Mixer Relationship Specialty Start Date End Date Christa Peng DO [address] [place] [address] PCP - General Family Medicine 03/19/20 documented as of this encounter
--- OUTSIDE RECORDS SUMMARY | 2024-12-16 17:40 | XMS_ITS | Encounter Summary ---
Author Organization [employer] Address [address] [place] [address] 7 [place] [address] Care Team Providers Care Regional Business Development Manager Name Role Phone RafiChrista wright Primary Care Provider [phone] Reason for Visit * Reason Comments Med Refill Encounter Details Date Type Department Care Team ([facility] st Contact Info) Description 11/25/2024 Refill [facility] MEDICINE [address] [place] [address] Aimee Walker MD [address] [place] [address] Psychiatric diagnosis Social History Tobacco Use Types Packs/Day Years Used Date Smoking Tobacco: Never Passive Smoke Exposure: Never Smokeless Tobacco: Never Alcohol Use Standard Drinks/Week Comments Never 0 (1 standard drink = 0.6 oz pur e alcohol) Alcohol Answer Date Recorded Frequency of Alcohol Consumption Not on file 03/10/2024 Average Number of Drinks Not on file 024 Frequency of Binge Drinking Not on file 12/2023 Score 0 03/10/2024 Depression Answer Date Recorded Patient Health Questionnaire-9 Score 0 03/10/2024 Patient Health Questionnaire-9 Score 0 03/10/2024 Last PHQ-9: Questionnaire Data Not on file 0 03/10/2024 Housing Stability Answer Date Recorded What is your housing situation today? I have ruy clancy 03/10/[address] you li ve. Do you have problems with any of the following? None of the above 03/10/2024 Food Insecurity Answer Date Recorded Within the past 12 months, y ou worried that your food would run out before you got money to buy more: Never True 03/10/2024 Within the past 12 months,th e food you bought just didn't last and you didn't have enough money to get more: Never True 12/2023 Transportation Answer Date Recorded In the past 12 months, has l ack of transportation kept you from medical appts, meetings, work or from getting things needed for daily living? No 03/10/2024 Utilities Answer Date Recorded In the past 12 months, has t he electric, gas, oil or water company threatened to shut off services in your home? No 03/10/2024 Depression Answer Date Recorded Patient Health Questionnaire-2 Score 0 03/10/2024 Sex and Gender Information Value Date Recorded Sex Assigned at Male 08/07/2022 10:18 AM EDT Legal Sex Male 10:18 AM EDT Gender Identity Male 08/07/2022 10:18 AM EDT Sexual Orientation Straight 08/07/2022 10 :18 AM EDT documented as of this encounter Plan of Treatment Not on file documented as of this encounter Visit Diagnoses Diagnosis Psychiatric diagnosis Unspecified nonpsychotic mental disorder documented in this encounter Additional Health Concerns Assessment Noted Time PHQ-9 Depression Total Score: 0 03/10/20 24 2:24 PM EDT documented as of this encounter Care Teams Regional Business Development Manager Relationship Specialty Start Date End Date Christa Peng DO [address] [place] [id number] PCP - General Family Medicine 03/19/20 documented as of this encounter
--- OUTSIDE RECORDS SUMMARY | 2024-12-16 17:40 | XMS_ITS | Clinical Summary ---
Author Organization [employer] Address [address] [place] [address] 7[address] [place] [address] Care Team Providers Care Sales Service Executive Name Role Phone Danish Christa Primary Care Provider [phone] Allergies Active Allergy Reactions Criticality Noted Date Comments Aspirin 03/10/2024 Medications ipratropium-albut vega (Duo-Neb) 0.5-2.5 mg/3 mL nebulizer solutionIndicatio ns:Chronic obstructive pulmonary disease, unspecified COPD type ([facility]) inhale 3 milliliter by nebulization route 4 times every day 180 mL 2 023 Active Blood Glucose Monitoring Suppl (FreeStyle Lite) w/Device kitIndications:Ty pe 2 diabetes mellitus with stage 3 chronic kidney disease, without long-term current use of insulin, unspecified whether stage 3a or 3b CKD (CMS/HCC) 1 each 2 times daily. 1 kit 023 Active tamsulosin (Flomax) 0.4 MG 24 hr capsuleIndication s:Benign prostatic hyperplasia with lower urinary tract symptoms, symptom details unspecified TAKE 1 TABLET BY MOUTH EVERY MORNING 90 capsule 1 023 Active Eliquis 5 MG tablet TAKE 1 TABLET BY MOUTH TWICE DAILY IN THE MORNING AND IN THE EVENING 023 Active Alcohol Swabs (Easy Touch Alcohol Prep Medium) 70 % pads USE DIRECTED TWICE DAILY 100 each 11 024 Active melatonin 5 MG tabletIndications :Insomnia, unspecified type TAKE 1 TABLET BY MOUTH AT BEDTIME 30 tablet 5 09/11/2 024 Active atorvastatin (Lipitor) 40 MG tabletIndications :Other hyperlipidemia TAKE 1 TABLET BY MOUTH AT BEDTIME 90 tablet 1 024 Active Breo Ellipta 200-25 MCG/ACT aerosol powder INHALE 1 PUFF BY MOUTH EVERY DAY AT THE SAME TIME 60 each 11 024 Active acetaminophen (Tylenol 8 Hour) 650 MG ER tablet Take 1 tablet (650 mg) by mouth every 8 (eight) hours if needed for mild pain. Do not crush, chew, or split. 60 tablet 3 024 2024 Active Diclofenac Sodium 1 % gel Apply 2 g topically if needed in the morning, at noon, in the evening, and at bedtime (pain). 150 g 3 024 Active sucralfate (Carafate) 1 g tabletIndications :Primary hypertension Take 1 tablet (1 g) by mouth before breakfast and before evening meal. 180 tablet 3 024 Active traZODone (Desyrel) 100 MG tabletIndications :Psychiatric diagnosis TAKE 1 TABLET BY MOUTH AT BEDTIME 30 tablet 5 024 Active folic acid (Folvite) 1 MG tabletIndications :Iron deficiency TAKE 1 TABLET BY MOUTH EVERY MORNING 90 tablet 3 025 Active QUEtiapine (SEROquel) 100 MG tabletIndications :Psychiatric diagnosis TAKE 1 Tablet BY MOUTH AT BEDTIME 90 tablet 3 025 Active amiodarone (Pacerone) 200 MG tabletIndications :Elevated blood sugar TAKE 1 Tablet BY MOUTH EVERY MORNING 90 tablet 3 025 Active metoprolol succinate XL (Toprol-XL) 50 MG 24 hr tabletIndications :Primary hypertension TAKE 1 Tablet BY MOUTH EVERY MORNING 90 tablet 3 025 Active metFORMIN (Glucophage) 850 MG tabletIndications :Elevated blood sugar TAKE 1 Tablet BY MOUTH TWICE DAILY IN THE MORNING AND IN THE EVENING WITH MEALS 180 tablet 3 025 Active FeroSul 325 (65 Fe) MG tabletIndications :Iron deficiency TAKE 1 TABLET BY MOUTH EVERY MORNING 90 tablet 3 025 Active Multiple Vitamin (Multivitamin) tabletIndications :Iron deficiency TAKE 1 TABLET BY MOUTH EVERY MORNING WITH FOOD 90 tablet 3 01/08/2 025 Active PARoxetine (Paxil) 10 MG tabletIndications :Psychiatric diagnosis TAKE 1 Tablet BY MOUTH AT BEDTIME 90 tablet 025 Active PARoxetine (Paxil) 10 MG tabletIndications :Psychiatric diagnosis TAKE 1 TABLET BY MOUTH AT BEDTIME 90 tablet 3 024 2024 Discontinued Active Problems Problem Noted Date Diagnosed Date Chronic pain of right knee 03/10/2024 Assessment & Plan (03/10/2024 3:05 PM EDT): XRAY ordered Orthopedics referral done C/w acetaminophen PRN History of DVT (deep vein thrombosis) 11/09/2022 History of gastric ulcer 11/09/2022 S/P insertion of IVC (inferior vena caval) filte r 11/09/2022 Osteoarthritis 11/09/2022 Obstructive sleep apnea 11/09/2022 Chronic low back pain 11/09/2022 Assessment & Plan (11/09/2022 9:48 AM EST): with chronic pain and decreased range of motion -recommend hospital bed to help improve mobility -referred for L-spine x-rays -cont Tylenol PRN -trial diclofenac gel and lidocaine patches -CT L-spine with spondylosis and DDD Nov 2020 -referred to pain management for f/u Type 2 diabetes mellitus 11/09/2022 Assessment & Plan (03/10/2024 3:05 PM EDT): Diabetes is: controlled - Lab Results Component Value Date HGBA1C 5.7 03/10/2024 HGBA1C 5.5 02/05/2023 HGBA1C 5.3 11/09/2022 - Lab Results Component Value Date CREATININE 1.45 (H) 07/10/2023 -Changes: none - Diabetic eye exam:up to date - Diabetic foot exam:pending - Continue lifestyle modifications - Continue current medications -f/u with PCP as schedule Assessment & Plan (11/09/2022 9:45 AM EST): -cont metformin BID -cont regular BS monitoring -cont lipitor nightly -advised granddaughter to reschedule ophtho eval -foot exam next visit Chronic kidney disease (CKD), stage III (moderat e) 11/09/2022 Assessment & Plan (11/09/2022 9:49 AM EST): -Cr/GFR stable April 2021 -optimal BS/BP controlled -avoid NSAIDS -refer to renal prn Healthcare maintenance 11/09/2022 Assessment & Plan (11/09/2022 9:50 AM EST): -s/p flu vaccine Oct 2021 -s/p Tdap Jun 2012 -s/p pneumovax January 2008 -> repeat next visit -s/p covid vaccine December 2020, booster #08 Oct 2021 -s/p prevnar April 2021 -hep A immune -s/p hep B vaccine -shingrix prior to next visit -he declines colonoscopy or stool card -review AAA screening next visit -STI/HIV screen negative April 2021 Tremor 11/09/2022 Assessment & Plan (11/09/2022 9:50 AM EST): Intermittent hand shaking with memory loss, family concern for Parkinson's -advised granddaughter to reschedule eval with neurology Urinary retention 11/09/2022 Assessment & Plan (11/09/2022 9:50 AM EST): -cont flomax daily -advised granddaughter to reschedule f/u with urology History of pulmonary embolism 02/02/2018 Paroxysmal atrial fibrillation 01/11/2018 Assessment & Plan (11/09/2022 9:47 AM EST): Anticoagulation restarted by cardiology -cont eliquis BID advised notify [facility] if any GI bleed symptoms -cont amiodarone daily -f/u w cards as scheduled due Nov 2022 Hyperlipidemia 10/22/2012 Assessment & Plan (11/09/2022 9:46 AM EST): LDL at goal April 2021 -cont lipitor nightly -check lipids prior to next visit BPH (benign prostatic hyperplasia) 06/20/2012 Overview (11/09/2022): Overview Note: BPH (benign prostatic hyperpla #[id number]# EXT_ID: [id number] COPD (chronic obstructive pulmonary disease) Assessment & Plan (11/09/2022 9:47 AM EST): stable -cont breo daily -cont albuterol as needed -PFT? s with moderate COPD Jul 2006 Depression 06/20/2012 Microalbuminuria 06/20/2012 Migraine 06/20/2012 Essential hypertension 03/22/2012 Assessment & Plan (03/10/2024 3:04 PM EDT): It was advise: - low-sodium diet (goal: <2g/day) and heart healthy diet such as DASH to reduce BP and prevent ASCVD. - Home BP monitoring 1-2 x day with goal of <140/90. - Seek immediate medical attention for chest pain, palpitations, SOB, syncope, or sudden changes in mental status. - Do not change or discontinue current prescriptions without first consulting health care provider Assessment & Plan (11/09/2022 9:46 AM EST): -cont metoprolol daily -Creatinine/GFR stable April 2021 repeat prior to next visit -ophtho as above Obesity 03/22/2012 Resolved Problems Problem Noted Date Diagnosed Date Resolved Date Encounter for preventive health examination 03/10/2024 08/18/2024 Assessment & Plan (03/10/2024 3:06 PM EDT): See HPI Dyslipidemia 07/18/2018 11/09/2022 GI bleed 07/18/2018 11/09/2022 Valvular regurgitation 07/18/201811/09 UTI (urinary tract infection) 03/28/2018 11/09/2022 DVT (deep venous thrombosis) 03/15/2018 11/09/2022 Overview (11/09/2022): Overview Note: DVT (deep venous thrombosis) #[id number]# EXT_ID: [id number] Pneumonia 03/15/2018 11/09/2022 Overview (11/09/2022): Overview Note: Pneumonia #[id number]# EXT_ID: [id number] Hematemesis with nausea 02/10/2018 02/0 11/2022 Overview (11/09/2022): Added automatically from request for surgery [id number] Acute deep vein thrombosis ( DVT) of distal vein of right lower extremity 01/31/2018 11/09/2022 Acute respiratory failure with hypoxia 01/07/2018 11/09/2022 Sepsis 01/07/2018 11/09/2022 Abscess of thumbnail of left hand 10/11/2012 11/09/2022 Osteoarthritis of knee 06/20/201211/09 Chronic kidney disease 03/22/201211/09 DM2 (diabetes mellitus, type 2) 03/22/2012 11/09/2022 Overview (11/09/2022): Overview Note: Diabetes type 2, controlled #[id number]# EXT_ID: [id number] Pure hypercholesterolemia 03/22/2012 Sleep apnea 03/22/2012 11/09/2022 Overview (11/09/2022): Overview Note: Sleep apnea #[id number]# EXT_ID: [id number] Encounters Date Type Department Care Team Description 11/25/2024 Refill [facility] MEDICINE [address] [place], [place] [phone] Aimee Walker MD Psychiatric diagnosis 10/14/2024 Refill [facility] MEDICINE [address] [place], [place] [phone] Aimee Walker MD Iron deficiency; Psychiatric diagnosis; Elevated blood sugar; Primary hypertension 09/26/2024 Refill [facility] MEDICINE [address] [place], [place] [phone] Christa Peng DO Psychiatric diagnosis from Last 3 Months Immunizations Name Administration Dates Next Due Hep B, Adolescent or Pediatric 02/07/2011,2007,01/23/2008 Influenza High-dose Quadriva lent Preservative Free 08/18/2020 Influenza injectable quadriv alent IIV4 with preservative 11/22/2017,07/18/2016 Influenza injectable quadriv alent preservative free 11/09/2022,11/03/2021,09/15/2015 Influenza, High Dose Seasona l, Preservative Free 06/25/2019 Influenza, IIV3, injectable 07/03/2014, 1 Influenza, Split (incl. nette fied surface antigen) 07/09/2013,06/20/2012 Moderna Covid-19 Vaccine 6+ Bivalent 11/09/2022 Pfizer Covid-19 Vaccine 12+ 03/10/2024 Pneumococcal Conjugate PCV 13 04/21/2021, 018 Pneumococcal Polysaccharide PPSV23 11/09/2022, TD (adult), 2 Lf tetanus tox oid, preservative free, adsorbed 11/09/2022 Tdap 06/20/2012 Social History Tobacco Use Types Packs/Day Years Used Date Smoking Tobacco: Never Passive Smoke Exposure: Never Smokeless Tobacco: Never Tobacco Cessation:Counseling Given: Not Answered Alcohol Use Standard Drinks/Week Comments Never 0 [...] Orientation Straight 08/07/2022 10 :18 AM EDT Last Filed Vital Signs Vital Sign Reading Time Taken Comments Blood Pressure 142/82 03/10/2024 2:22 PM EDT Pulse 92 03/10/2024 2:22 PM EDT Temperature 36.5 ??C (97.7 ??F) 03/10/2024 2:22 PM ED T Respiratory Rate 18 03/10/2024 2:22 PM EDT Oxygen Saturation 96% 03/10/2024 2:22 PM EDT Inhaled Oxygen Concentration - - Weight 108 kg (238 lb) 03/10/2024 2:22 PM EDT Height 182.9 cm (6') 03/10/2024 2:22 PM EDT Body Mass Index 32.28 03/10/2024 2:22 PM EDT Plan of Treatment Health Maintenance Due Date Last Done Comments Diabetes: Foot Exam 1955 Eye Exam 1955 Zoster Vaccines (1 of 2) 1994 RSV Patients and Patients Aged 60 years or older (1 - 1-dose 75+ series) 2019 Lipid Panel 11/09/2023 11/09/2022, 04/21/2021 COVID-19 Vaccine ( season) 2024 03/10/2024, 11/09/2022, 11/03/2021, Additional history exists Influenza Vaccine (#1) 2024 , 11/03/2021, 08/18/2020, Additional history exists Diabetes: Hemoglobin A1C 09/09/2024 024, 02/05/2023, 11/09/2022, Additional history exists Alcohol/Substance Use Screening 03/10/2025 03/10/2024 Depression Screening 03/10/2025 03/10/2024, 03/10/20 SDOH Screening 03/10/2025 03/10/2024 Tobacco Screening 03/10/2025 03/10/2024 DTaP/Tdap/Td Vaccines (3 - Td or Tdap) 11/09/2032 11/09/2022, 06/20/2012 Hepatitis B Vaccines Aged Out 02/07/2011, 02/25/2008, 01/23/2008 No longer eligible based on patient's age to complete this topic Pneumococcal Vaccine: 50+ Years Completed 11/09/2022, 04/21/2021, 07/24/2018, Additional history exists HIB Vaccines Aged Out No longer eligi ble based on patient's age to complete this topic HPV Vaccines Aged Out No longer eligi ble based on patient's age to complete this topic Hepatitis A Vaccines Aged Out No long er eligible based on patient's age to complete this topic IPV Vaccines Aged Out No longer eligi ble based on patient's age to complete this topic Meningococcal Vaccine Aged Out No minor magui eligible based on patient's age to complete this topic RSV under 20 months Aged Out No longe r eligible based on patient's age to complete this topic Rotavirus Vaccines Aged Out No longer eligible based on patient's age to complete this topic Procedures Procedure Name Priority Date/Time Associated Diagnosis Comments POCT GLYCATED HEMOGLOBIN, TOTAL Routine 03/10/2024 2:25 PM EDT Type 2 diabetes mellitus with stage 3 chronic kidney disease, without long-term current use of insulin, unspecified whether stage 3a or 3b CKD (CMS/HCC) LIPID PANEL, STANDARD Routine 11/09/2022 10:34 AM EST Type 2 diabetes mellitus with stage 3 chronic kidney disease, without long-term current use of insulin, unspecified whether stage 3a or 3b CKD (CMS/HCC) from Last 3 Months or Most Recently Relevant to Health Maintenance Results * POCT A1C (03/10/2024 2:25 PM EDT) Hemoglobin A1C 5.7 4.0 - 6.0 % QC Media Lot # [id number] Lot# Expiration Date Blood 03/10/2024 2:25 PM EDT Aimee Shukla MD POINT OF CARE TEST EN TER/EDIT ORDERABLES Final Result * (ABNORMAL) Lipid Panel, Standard (11/09/2022 10:34 AM EST) Cholesterol, Total 92 <200 mg/dL [facility] HDL Cholesterol 24(L) > OR = 40 mg/dL [facility] Triglycerides 162(H) <150 mg/dL [facility] LDL Cholesterol 44 mg/dL (calc) [facility] Comment: Reference range: <100 Desirable range <100 mg/dL for primary prevention; ?? <70 mg/dL for patients with CHD or diabetic patients with > or = 2 CHD risk factors. LDL-C is now calculated using the Robi-Heart calculation, which is a validated novel method providing better accuracy than the Friedewald equation in the estimation of LDL-C. Robi RICE et al. JYOTI. 2013;310(19): 2819-9530 (http://education.Musicane.Etalia/faq/WMB528) Chol/HDLC Ratio 3.8 <5.0 (calc) [facility] Non-HDL Cholesterol 68 <130 mg/dL (calc) [facility] Comment: For patients with diabetes plus 1 major ASCVD risk factor, treating to a non-HDL-C goal of <100 mg/dL (LDL-C of <70 mg/dL) is considered a therapeutic option. Blood Venous blood specimen / Unknown 11/09/2022 10:34 AM EST 11/09/2022 10:34 AM EST Narrative [facility] - 11/09/2022 8:51 PM EST FASTING:YES PATIENT UNABLE TO VOID; ADVISED TO RETURN FOR COLLECTION. FASTING: YES us Christa Danish DO LAB BLOOD ORDERABLES Final R esult [facility] [address] [facility] [place] [address] [facility] [address] , ([address]) [place] [address] from Last 3 Months or Most Recently Relevant to Health Maintenance Insurance MEDICARE [facility] Care Teams Sales Service Executive Relationship Specialty Start Date End Date Christa Peng DO [address] [place] [id number] PCP - General Family Medicine 03/19/20
--- OUTSIDE RECORDS SUMMARY | 2024-12-16 17:40 | XMS_ITS | Encounter Summary ---
Author Organization [employer] Address [address] [place] [address] [address] [place] [address] Care Team Providers Care Career Information Specialist Name Role Phone Christa Peng DO Primary Care Provider [phone] Encounter Details Date Type Department Care Team ([facility] st Contact Info) Description 11/07/2022 Orders Only [facility] [address] [place] [address] Christa Hammond LPN Social History Tobacco Use Types Packs/Day Years Used Date Smoking Tobacco: Never Assessed PHQ-2 Answer Date Recorded Patient Health Questionnaire-2 [...] AM EST documented as of this encounter Plan of Treatment Not on file documented as of this encounter Visit Diagnoses Not on filedocumented in this encounter Care Teams Career Information Specialist Relationship Specialty Start Date End Date Christa Peng DO [address] [place] [address] PCP - General Family Medicine 03/19/20 documented as of this encounter
--- OUTSIDE RECORDS SUMMARY | 2024-12-16 17:40 | XMS_ITS | Clinical Summary ---
Author Organization [facility] Address [address] [place] [address] Care Team Providers Care Derrick Car Operator Name Role Phone Unavailable Primary Care Provider Unavailabl e Social History Tobacco Use Types Packs/Day Years Used Date Smoking Tobacco: Never Assessed Sex and Gender Information Value Date Recorded Sex Assigned at Not on file Legal Sex Male 5:38 AM EST Gender Identity Not on file Sexual Orientation Not on file Plan of Treatment Health Maintenance Due Date Last Done Comments DTaP,Tdap,and Td Vaccines (1 - Tdap) 1963 Pneumococcal Vaccine: 50+ Ye ars (1 of 1 - PCV) 1994 Zoster Vaccines (1 of 2) 1994 RSV Immunization Patients 60 + Years Old (1 - 1-dose 75+ series) 2019 COVID-19 Vaccine ( - 2023-2 5 season) 2024 Influenza Vaccine (#1) 2024 HIB Vaccines Aged Out No longer eligi ble based on patient's age to complete this topic HPV Vaccines Aged Out No longer eligi ble based on patient's age to complete this topic Hepatitis A Vaccines Aged Out No long er eligible based on patient's age to complete this topic Hepatitis B Vaccines Aged Out No long er eligible based on patient's age to complete this topic IPV Vaccines Aged Out No longer eligi ble based on patient's age to complete this topic MMR Vaccines Aged Out No longer eligi ble based on patient's age to complete this topic Meningococcal ACWY Vaccine Aged Out N o longer eligible based on patient's age to complete this topic Meningococcal B Vacine Aged Out No lo nger eligible based on patient's age to complete this topic RSV Immunization Patients Un sang 20 months Aged Out No longer eligible b ased on patient's age to complete this topic Varicella Vaccines Aged Out No longer eligible based on patient's age to complete this topic
--- OUTSIDE RECORDS SUMMARY | 2024-12-16 17:40 | XMS_ITS | Encounter Summary ---
Author Organization [facility] [employer] Address [address] [place] [address] [address] [place] [address] Care Team Providers Care Online Marketing Director Name Role Phone Christa Peng DO Primary Care Provider [phone] Encounter Details Date Type Department Care Team ([facility] st Contact Info) Description 12/22/2022 Orders Only [facility] [address] [place] [address] Christa Hammond LPN Social History Tobacco Use [...] on filedocumented in this encounter Care Teams Online Marketing Director Relationship Specialty Start Date End Date Christa Peng DO [address] [place] [id number] PCP - General Family Medicine 03/19/20 documented as of this encounter
--- OUTSIDE RECORDS SUMMARY | 2024-12-16 17:41 | XMS_ITS | Encounter Summary ---
Author Organization [facility] Address [address] [place] [address] 7 [place] [address] Care Team Providers Care Electronic Assembler Name Role Phone Christa Peng DO Primary Care Provider [phone] Reason for Visit * Reason Onset Date Comments requesting call back 09/27/2022 Encounter Details Date Type Department Care Team (Late st Contact Info) Description 09/27/2022 Telephone [facility] MEDICINE [address] [place], [place] [id number] Christa Peng DO [address] [place] [address] requesting call back Social History Tobacco Use Types Packs/Day Years Used Date Smoking Tobacco: Never Assessed Sex and Gender Information Value Date Recorded Sex Assigned at Male 08/07/2022 10:18 AM EDT Legal Sex Male 10:18 AM EDT Gender Identity Male 08/07/2022 10:18 AM EDT Sexual Orientation Straight 08/07/2022 10 :18 AM EDT documented as of this encounter Miscellaneous Notes * Telephone Encounter - Yael Tobar - 09/28/2022 11:21 AM EST TC to L&C to clarify status of hospital bed. VM left to return my call. * Telephone Encounter - Lawrence Angel - 09/27/2022 12:14 PM EST Tc from pt granddaughter requesting a call back regarding hospital bed Please contact lore at [phone] documented in this encounter Plan of Treatment Not on file documented as of this encounter Visit Diagnoses Not on filedocumented in this encounter Care Teams Electronic Assembler Relationship Specialty Start Date End Date Christa Peng DO [address] [place] [phone] PCP - General Family Medicine 03/19/20 documented as of this encounter
--- OUTSIDE RECORDS SUMMARY | 2024-12-16 17:41 | XMS_ITS | Clinical Summary ---
Author Organization [facility] Address [address] [place] [address] Care Team Providers Care Shark Biologist Name Role Phone Unavailable Primary Care Provider Unavailabl e Source Comments PLEASE NOTE, if this patient is a minor, it may be UNLAWFUL to discuss sensitive information that is contained in these records (such as FAMILY PLANNING, MENTAL HEALTH or SUBSTANCE ABUSE) with the minor patient's parent or other person without the patient's specific authorization.[place] Active Problems Problem Noted Date Diagnosed Date Depression 07/05/2018 Overview (12/04/2019): Overview Note: Depression #801309# EXT_ID: [id number] Atrial fibrillation 07/05/2018 Overview (12/04/2019): Overview Note: Atrial fibrillation #834562# EXT_ID: [id number] Diabetes type 2, controlled 03/15/2018 Overview (12/04/2019): Overview Note: Diabetes type 2, controlled #271272# EXT_ID: [id number] Hyperlipidemia 03/15/2018 Overview (12/04/2019): Overview Note: Hyperlipidemia #586415# EXT_ID: [id number] Sleep apnea 03/15/2018 Overview (12/04/2019): Overview Note: Sleep apnea #085259# EXT_ID: [id number] Hypertension 03/15/2018 Overview (12/04/2019): Overview Note: Hypertension #724898# EXT_ID: [id number] DVT (deep venous thrombosis) 03/15/2018 Overview (12/04/2019): Overview Note: DVT (deep venous thrombosis) #008978# EXT_ID: [id number] Pneumonia 03/15/2018 Overview (12/04/2019): Overview Note: Pneumonia #724484# EXT_ID: [id number] BPH (benign prostatic hyperplasia) 03/15/2018 Overview (12/04/2019): Overview Note: BPH (benign prostatic hyperpla #680627# EXT_ID: [id number] COPD (chronic obstructive pulmonary disease) 05/2018 Overview (12/04/2019): Overview Note: COPD (chronic obstructive pulm #537318# EXT_ID: [id number] Immunizations Name Administration Dates Next Due PNEUMOCOCCAL CONJUGATE PCV 13 07/24/2018 Social History Tobacco Use Types Packs/Day Years Used Date Smoking Tobacco: Never Assessed Social Connections Answer Date Recorded Social Connections and Isolation 0 11/29/2019 Financial Resource Strain Answer Date R ecorded Financial Resource Strain 0 2019 Stress Answer Date Recorded Stress 0 11/29/2019 Physical Activity Answer Date Recorded Physical Activity 0 11/29/2019 Food Insecurity Answer Date Recorded Food 0 11/29/2019 Transportation Needs Answer Date Record ed Transportation 0 11/29/2019 Housing Stability Answer Date Recorded Housing 0 11/29/2019 Safety and Environment Answer Date Subhash rded Safety 0 11/29/2019 Utilities Answer Date Recorded Utilities 0 11/29/2019 Employment Answer Date Recorded Employment 0 11/29/2019 Sex and Gender Information Value Date Recorded Sex Assigned at Not on file Legal Sex Male 11:39 PM PST Gender Identity Not on file Sexual Orientation Not on file Last Filed Vital Signs Vital Sign Reading Time Taken Comments Blood Pressure 130/84 02/17/2019 2:44 PM EDT Pulse 105 02/17/2019 2:44 PM EDT Temperature 36.8 ??C ([id number] ??F) 09/25/2018 7:04 PM EST Respiratory Rate 16 05/10/2018 5:37 PM EDT Oxygen Saturation 96% 02/17/2019 2:44 PM EDT Inhaled Oxygen Concentration - - Weight 123.8 kg (273 lb) 02/17/2019 2:44 PM EDT Height 170.2 cm (5' 7 ) 02/17/2019 2:44 PM EDT Body Mass Index 42.76 02/17/2019 2:44 PM EDT Plan of Treatment Not on file
[2024-12-16] MEDS: Oseltamivir Phosphate 75 MG CAPSULE PO (19:04)
--- NOTE | 2024-12-16 19:08 | PC.NURSE ---
pt trailed off oxygen and was hypoxic on room air to 88%. He was put back on oxygen spO2 improved to 97%
--- NOTE | 2024-12-16 20:02 | PC.NURSE ---
multiple attempts to obtain a urine sample. [place] cath applied x2 and failed - pt urinated in bed. Pt encouraged to use urinal without success. Bladder scan shows 110ml in bladder.
--- NOTE | 2024-12-16 20:13 | PHA.MEDREC ---
Addendum entered by Alejandro Patel RPh 12/16/24 22:18: Med rec was reviewed by [facility]. Original Note: Pharmacy Consult ? Medication Reconciliation Pharmacy has completed the medication reconciliation. Spoke with patients daughter over the phone who had a list of the patients medications from a med box she was able to read and confirm with me. She confirmed the patients Eliquis 5mg tab twice a day and stated he took one dose of that this morning. The daughter confirmed he took all his morning medications this morning.
[2024-12-16 20:47] LABS: Appearance Urine Clear; Color Urine Yellow; Glucose Urine UA Negative (Negative); Leukocyte Esterase Urine Small (1+) (Negative); Nitrite Urine Negative (Negative); Specific Gravity - Urine 1.015 (1.005-1.025); UMIC TRIGGER UACC YES; Urine Blood Small (1+) (Negative); Urine Ketones Negative (Negative); Urine Protein 30 (1+) mg/dL (Neg-Trace)
[2024-12-16 20:59] LABS: Bacteria Urine None Seen (None Seen); Squamous Epithelial Cell Urine 0-2 /HPF (0-2); UACC Culture Trigger YES
[2024-12-17] VITALS (9 sets, daily range): BP systolic 118–155; BP diastolic 60–85; PULSE 69–77; RESP 16–24; TEMP 36.2–38.3; O2SAT 93–98; BMI 37.8
[2024-12-17] MEDS: cefTRIAXone sodium 1 GM VIAL IVPUSH ×2 (01:05→23:40)
--- NOTE | 2024-12-17 01:10 | PC.NURSE ---
Pt medicated per mar Pts family reporting the patient is very anxious, moving around a lot, attempting to remove things. Plan of care ongoing.
--- NOTE | 2024-12-17 01:14 | PC.NURSE ---
ANDRÉS amaya notified and aware pt pulling at cords and attempting to take and pull things off Plan of care ongoing.
[2024-12-17] MEDS: OLANZapine 10 MG VIAL 5 MG IM (01:30)
--- NOTE | 2024-12-17 01:39 | PM.IMHP ---
History of Present Illness Date of Service: 12/17/24 Chief Complaint: Confused 79-year-old male with a past medical history of HTN, HLD, paroxysmal AFib, chronic low back pain, arthritis, asthma, diabetes and presented to the hospital by the family members with a chief complaint of generalized weakness/confusion. Most of the history obtained from the patient's granddaughter at bedside. Reportedly patient has been not doing well over the past couple days. Has been not himself and appears to be confused. At baseline patient able to walk few steps. Over the past couple days he is more sleepy. Denies any falls or injury. Reports patient also has decreased intake. Patient does have subjective fevers at home. Mentioned that patient has been having cough with occasional sputum production which is yellow in color. Family mentioned that all the family members were sick with flu-like symptoms; and the patient was exposed to sick family members. Patient denies any abdominal pain or chest pain. Denies any shortness with the dyspnea on exertion. Oriented times 1-2. Moves all extremities equally at the time of my interview. Review of all other systems is negative except mentioned above ER course: Per ER team, patient appears to be mildly confused; CT head showed no acute findings; patient tested positive for influenza; urinalysis abnormal consistent with UTI. Patient appears to be sleepy but moving all extremities equally, grossly nonfocal examination. Given Tamiflu. Patient was also hypoxic to 84%. Chest x-ray showed no acute cardiopulmonary process. Patient is already on Eliquis-low suspicion for pulmonary embolism. [facility] Medical History Paroxysmal atrial fibrillation Low back pain Fatigue Arthritis Asthma Diabetes Social History Alcohol intake: current Alcohol intake frequency: does not drink Patient Tobacco Use Status: Never used Tobacco Smoked in Last 30 Days: No Use of substances other than those prescribed or required for medical reasons: No Advance Directives: No Advance Directives Information Provided: Yes Meds Allergies Allergy/AdvReac Type Severity Reaction Status Date / Time acetaminophen Allergy Unknown Unknown Verified 12/16/24 14:02 [Excedrin Extra Strength] caffeine Allergy Unknown Unknown Verified 01/26/24 16:17 [Excedrin Extra Strength] aspirin [ASPIRIN] AdvReac Unknown UNKNOWN Verified 01/26/24 16:17 Active Medications: Current Medications Acetaminophen (Acetaminophen 325 Mg Tablet) 650 mg PO Q6H PRN PRN Reason: Pain, Mild 1-3,fever,headache Albuterol Sulfate (Albuterol Sulfate 90 Mcg 8 Gm Inhaler) 2 puff INHALE Q6H PRN PRN Reason: Shortness Of Breath Or Wheezing Albuterol/Ipratropium (Albuterol/Iprat 2.5/0.5mg 3 Ml Ampul.Neb) 3 ml INHALE Q4H PRN PRN Reason: Shortness of Breath/Wheezing Amiodarone HCl (Amiodarone Hcl 200 Mg Tablet) 200 mg PO DAILY [facility] Apixaban (Apixaban 5 Mg Tablet) 5 mg PO BID [facility] Atorvastatin Calcium (Atorvastatin Calcium 40 Mg Tablet) 40 mg PO DAILY [facility] Calcium Carbonate (Calcium Carbonate 750 Mg Tab.Chew) 750 mg PO Q4H PRN PRN Reason: Heartburn Ceftriaxone Sodium (Ceftriaxone Sodium 1 Gm Vial) 1 gm IVPUSH Q24H [facility] Last Admin: 12/17/24 01:05 Dose: 1 gm Fluticasone/Vilanterol (Fluticasone/Vilanterol 200/25 Blst.W.Dev) 1 puff INHALE DAILY [facility] Folic Acid (Folic Acid 1 Mg Tablet) 1 mg PO DAILY [facility] Magnesium Hydroxide (Milk Of Magnesia 30 Ml Oral.Susp) 30 ml PO DAILY PRN PRN Reason: Constipation Melatonin (Melatonin 3 Mg Tablet) 6 mg PO BEDTIME PRN PRN Reason: Insomnia Metoprolol Succinate (Metoprolol Succinate Er 50 Mg Tab.Er.24h) 50 mg PO DAILY [facility]; Protocol Oseltamivir Phosphate (Oseltamivir Phosphate 75 Mg Capsule) 30 mg PO Q12H [facility] Stop: 12/21/24 18:01 Paroxetine HCl (Paroxetine Hcl 10 Mg Tablet) 10 mg PO BEDTIME [facility] Quetiapine Fumarate (Quetiapine Fumarate 100 Mg Tablet) 100 mg PO BEDTIME [facility] Sodium Chloride (0.9 % Sodium Chloride Flush 3 Ml Syringe) 3 ml IVFLUSH QSHIFT [facility] Sucralfate (Sucralfate 1 Gm Tablet) 1 gm PO BID@1200,2100 [facility] Trazodone HCl (Trazodone Hcl 100 Mg Tablet) 100 mg PO BEDTIME [facility] Home Medications ?Medication ?Instructions ?Recorded ?Confirmed ?Last Taken ?Type albuterol sulfate 90 mcg/actuation 2 inh inhalation Q6H PRN Shortness 10/25/20 12/16/24 12/16/24 History aerosol inhaler Of Breath Or Wheezing atorvastatin 40 mg tablet 40 mg PO DAILY 10/25/20 12/16/24 12/16/24 History ferrous sulfate 325 mg (65 mg 325 mg PO DAILY 10/25/20 12/16/24 12/16/24 History iron) tablet folic acid 1 mg tablet 1 mg PO DAILY 10/25/20 12/16/24 12/16/24 History metformin 850 mg tablet 850 mg PO BID 10/25/20 12/16/24 12/16/24 History metoprolol succinate 50 mg 50 mg PO DAILY 10/25/20 12/16/24 12/16/24 History tablet,extended release 24 hr multivitamin 1 tab PO DAILY 10/25/20 12/16/24 12/16/24 History paroxetine HCl 10 mg tablet 10 mg PO BEDTIME 10/25/20 12/16/24 12/16/24 History sucralfate 1 gram tablet 1 g PO BID@1200,2100 10/25/20 12/16/24 12/16/24 History fluticasone furoate 200 1 ea inhalation DAILY 03/07/22 12/16/24 12/16/24 History mcg-vilanterol 25 mcg/dose inhalation powder (Breo Ellipta) melatonin 5 mg tablet 5 mg PO BEDTIME 03/07/22 12/16/24 12/16/24 History trazodone 100 mg tablet 100 mg PO BEDTIME 12/12/22 12/16/24 12/16/24 History quetiapine 100 mg tablet 100 mg PO BEDTIME 03/30/23 12/16/24 12/16/24 History amiodarone 200 mg tablet 200 mg PO DAILY 07/05/23 12/16/24 12/16/24 History Physical Exam Vital Signs and Narrative: Vital Signs: Last Vital Signs Temp 99.1 F 12/16/24 23:41 Pulse 76 12/16/24 23:41 Resp 15 12/16/24 23:41 BP 135/57 L 12/16/24 23:41 Pulse Ox 93 12/16/24 23:41 O2 Del Method Nasal Cannula 12/16/24 23:41 O2 Flow Rate 3 12/16/24 23:41 Oxygen Flow Rate 2 12/16/24 13:59 BMI result Body Mass Index 39.2 Gen: Appears be in no acute distress HEENT: NCAT, Moist mucosa. Pulmonary: Vesicular breath sounds, fair air entry CVS: Normal S1-S2 Abdomen: BS+, Soft, Nontender Extremities: Warm well perfused Neuro: Alert and awake. Oriented times 1-2. Moves all extremities equally. Results Labs 12/16/24 14:30 12/16/24 14:30 Labs: Laboratory Results - last 24 hr 12/16/24 12/16/24 14:30 20:32 MCV 98.5 H MCH 32.5 MCHC 33.0 RDW 13.4 Plt Count 181 MPV 10.0 Immature Gran % (Auto) 0.4 Neut % (Auto) 70.9 Lymph % (Auto) 12.1 L [place] % (Auto) 16.0 H Eos % (Auto) 0.2 Baso % (Auto) 0.4 Lymph # (Auto) 0.6 L [place] # (Auto) 0.8 Eos # (Auto) 0.0 Baso # (Auto) 0.0 Abs Immat Gran (auto) 0.02 Absolute Neuts (auto) 3.6 Absolute Nucleated RBC 0.000 Nucleated RBC % (auto) 0.0 Anion Gap 11 L Estim Creat Clear Calc 40.7 Estimated GFR 38 Random Glucose 99 Lactic Acid 1.9 Calcium 8.5 D Magnesium 1.6 Total Bilirubin 0.4 AST 34 ALT 19 Alkaline Phosphatase 68 Total Protein 6.2 L Albumin 3.4 L Urine Color Yellow Urine Appearance Clear Urine pH 5.0 Ur Specific [place] 1.015 Urine Protein 30 (1+) H Urine Glucose (UA) Negative Urine Ketones Negative Urine Blood Small (1+) H Urine Nitrite Negative Ur Leukocyte Esterase Small (1+) H Urine RBC 3-5 H Urine WBC 6-10 H Ur Squamous Epith Cells 0-2 Urine Bacteria None Seen Hyaline Casts 3-5 Influenza Type A (PCR) POSITIVE A Influenza Type B (PCR) NEGATIVE RSV RNA Qual (PCR) NEGATIVE SARS-CoV-2 RNA (RT-PCR) NEGATIVE S. pyogenes GrpA SAHNIQUA Negative Imaging Radiologist's Impressions: Impressions Chest X-Ray 12/16/24 13:44 IMPRESSION: Limited examination as described. No definite acute abnormality. Electronically signed by: Johnnie Haley MD 12/16/2024 03:30 PM EDT RP Assessment and Plan (1) Influenza A: Status: Acute Plan 79-year-old male with a past medical history of HTN, HLD, paroxysmal AFib, chronic low back pain, arthritis, asthma, diabetes and presented to the hospital by the family members with a chief complaint of generalized weakness/confusion. Admitted for following Toxic metabolic encephalopathy: In the setting of influenza/UTI. Supportive care Aspiration precautions Fall precautions CHIEF DIGITAL MEDIA OFFICER evaluation Influenza: Continue Tamiflu. Acute hypoxic respiratory failure: Patient was saturating 84% on room air. Placed on supplemental oxygen. Clear lungs. Chest x-ray showed no acute cardiopulmonary process. Low suspicion for PE given patient already on Eliquis. Supplemental oxygen p.r.n.. Trending pulse oximetry when ready for discharge. DuoNebs p.r.n.. AFib: Rate controlled. Continue home Eliquis. Continue home amiodarone. UTI: Continue ceftriaxone. Follow up cultures. Microscopic hematuria: Likely in the setting of UTI. Recommended repeat UA in few days to ensure improvement, if not improving to follow up with Urology. DVT prophylaxis: Patient on Eliquis Code status: Full code, confirmed with the family. Quality Stroke Does the patient have a stroke diagnosis?: No VTE Prior VTE?: No VTE Risk Level:: Medical - moderate - high VTE Device Contraindication: Patient Refused VTE Drug Contraindication: N/A - Med Ordered
--- NOTE | 2024-12-17 06:11 | MHC.EDTECH ---
pt cleaned, changed linens and repositioned. resting comfortably at this time.
--- NOTE | 2024-12-17 07:17 | PC.NURSE ---
AWAITING SPEECH EVAL, PT IS NPO UNTIL THEN. CANNOT FOLLOW COMMANDS AND SAFELY GIVE MEDS PO
[2024-12-17] MEDS: 0.9 % Sodium Chloride Flush 3 ML SYRINGE IVFLUSH ×2 (07:52→23:40)
[2024-12-17 08:05] LABS: Glucose, Whole Blood 81 mg/dL (60-115)
[2024-12-17] MEDS: Fluticasone/Vilanterol 200/25 BLST.W.DEV 1 PUFF INHALE (08:20)
--- NOTE | 2024-12-17 08:46 | MHC.SLORD ---
Speech Language Pathology Order Status: Pt remains lethargic, medicated. RN consulted, will text SLASH TRIMMER when pt more alert. Pt is NPO pending swallow eval.
--- NOTE | 2024-12-17 09:51 | PC.NURSE ---
Pt remains very lethargic, not making sense or following commands. Speech was unable to do eval this morning, will update her when pt is more awake. Unable to give meds at this time.
--- NOTE | 2024-12-17 10:36 | P.EN_ITS ---
Event Note Date of Service: 12/17/24 Event Note: 79-year-old male with a past medical history of HTN, HLD, paroxysmal AFib, chronic low back pain, arthritis, asthma, diabetes and presented to the hospital by the family members with a chief complaint of generalized weakness/confusion. Toxic metabolic encephalopathy In the setting of influenza/UTI. Supportive care Aspiration precautions Fall precautions HYDROELECTRIC SYSTEMS TECHNICIAN evaluation Acute hypoxic respiratory failure likely secondary to influenza a Patient was saturating 84% on room air. Placed on supplemental oxygen, keep oxygen saturation greater than 90%. Chest x-ray showed no acute cardiopulmonary process. Low suspicion for PE given patient already on Eliquis. DuoNebs p.r.n.. Continue Tamiflu DEXTER on CKD 3b Mild Follow BMP AFib Rate controlled. Continue home Eliquis. Continue home amiodarone and metoprolol. UTI Continue ceftriaxone. Follow up cultures. Microscopic hematuria Likely in the setting of UTI. Recommended repeat UA in few days to ensure improvement, if not improving to follow up with Urology. Mental health Continue paroxetine, Seroquel, trazodone Hyperlipidemia Continue statin Iron-deficiency anemia Stable H&H Continue iron supplementation DVT prophylaxis: Eliquis Code status: Full code, confirmed with the family. Time Spent With Patient Time: Total time managing care of this patient today ____ minutes.
--- NOTE | 2024-12-17 11:07 | PC.NURSE ---
Addendum entered by Lakisha García 12/17/24 11:09: Provider is aware Original Note: Speech reporting unable to do full eval still, would keep pt NPO at this time and try again later to eval.
--- NOTE | 2024-12-17 11:18 | MHC.SLORD ---
Speech Language Pathology Order Status: Pt too lethargic, unable to wake fully to participate. COMMODITY LEAD to assess when pt more awake. RN consulted. Pt to be transferred to floor today.
[2024-12-17 12:04] LABS: Glucose, Whole Blood 72 mg/dL (60-115)
[2024-12-17] MEDS: Dextrose 5 % and 0.9 % NaCl 1,000 ML 50 ML IVCONT (12:18)
--- NOTE | 2024-12-17 14:48 | MHC.CM.PN ---
PT LIVES WITH MANY FAMILY MEMBERS THEY DO NOT HAVE OUTSIDE SERVICES FAMILY PROVIDES TRANSPORTAION HOME WHEN DCD DC PLAN HOME NO SERVCIES
[2024-12-17 16:42] LABS: Glucose, Whole Blood 93 mg/dL (60-115)
--- NOTE | 2024-12-17 20:06 | MHC.EDTECH ---
This pct assumed care of Patient at 1900 ,Patient sleeping ,vitals taken ,no apparent distress noted ,Patient has a bed on [address] ,will be going up shortly .800 ml urine empty from male Purewick .Patient grand daughter at bedside .
[2024-12-17 20:55] LABS: Glucose, Whole Blood 90 mg/dL (60-115)
[2024-12-18 03:20] VITALS: BP 149/67; PULSE 79; RESP 16; TEMP 36.8; O2SAT 93
[2024-12-18 06:06] LABS: Anion Gap 14 (12-20); Blood Urea Nitrogen 23 mg/dL (9-16); Calcium 8.7 mg/dL (8.4-10.2); Carbon Dioxide 28 mmol/L (22-29); Chloride 107 mmol/L (96-108); Creatinine Clr Calc Pharmacy 49.6; Estimated Glomerular Filt Rate 49; Glucose Random 92 mg/dL (60-115); Iron 31 mcg/dL (45-160); Percent Iron Saturation 16 % (15-50); Potassium 4.5 mmol/L (3.3-5.1); Sodium 144 mmol/L (135-145); Total Iron Binding Capacity 189 mcg/dL (228-428); Unsaturated Iron Binding 158 ug/dL
[2024-12-18 07:35] VITALS: BP 140/73; PULSE 80; RESP 18; TEMP 36.7; O2SAT 92
[2024-12-18 07:43] LABS: Glucose, Whole Blood 81 mg/dL (60-115)
[2024-12-18] MEDS: Fluticasone/Vilanterol 200/25 BLST.W.DEV 1 PUFF INHALE (08:19)
[2024-12-18 08:28] VITALS: PULSE 84; RESP 18; O2SAT 92
[2024-12-18 08:47] VITALS: BP 145/81
[2024-12-18] MEDS: Dextrose 5 % and 0.9 % NaCl 1,000 ML 50 ML IVCONT (08:47)
[2024-12-18] MEDS: 0.9 % Sodium Chloride Flush 3 ML SYRINGE IVFLUSH ×3 (08:47→20:32)
[2024-12-18] MEDS: Metoprolol Succinate ER 50 MG TAB.ER.24H PO (08:47)
[2024-12-18] MEDS: Atorvastatin Calcium 40 MG TABLET PO (08:48)
[2024-12-18] MEDS: Apixaban 5 MG TABLET PO ×2 (08:48→20:29)
[2024-12-18] MEDS: Ferrous Sulfate 324 MG TABLET.DR PO (08:48)
[2024-12-18] MEDS: Folic Acid 1 MG TABLET PO (08:48)
[2024-12-18] MEDS: Amiodarone HCL 200 MG TABLET PO (08:48)
[2024-12-18] MEDS: Oseltamivir Phosphate 30 MG CAPSULE PO ×2 (09:10→20:29)
--- NOTE | 2024-12-18 09:11 | P.PNIM_ITS ---
Subjective Subjective Date of Service: 12/18/24 Interval History: Seen and examined this morning Follow-up for influenza a, possible UTI Patient awake alert and at baseline per family at the bedside reporting productive cough Review of Systems Review of Systems: Yes all other systems are reviewed and are negative Constitutional Constitutional: Denies chills and Denies fever(s) Physical Exam 2 Vital Signs: Vital Signs: Last Vital Signs Temp 98.1 F 12/18/24 07:35 Pulse 84 12/18/24 08:28 Resp 18 12/18/24 08:28 BP 145/81 H 12/18/24 08:47 Pulse Ox 92 12/18/24 07:35 O2 Del Method Nasal Cannula 12/18/24 07:35 O2 Flow Rate 2 12/18/24 07:35 Oxygen Flow Rate 2 12/16/24 13:59 BMI result Body Mass Index 37.8 Const: General: cooperative, comfortable, alert and awake Nutritional Appearance: obese Resp: Other: b/l rhonchi Effort & Inspection: normal respiratory effort, able to speak in complete sentences, respiratory distress and uses accessory muscles Cardio: Rate: regular rate GI: Inspection: No distended Palpation (GI): Soft to palpation and nontender Neuro: General: moves all extremities and CN's II-XI intact bilaterally Objective Data Active Medications Acetaminophen (Acetaminophen 325 Mg Tablet) 650 mg PO Q6H PRN PRN Reason: Pain, Mild 1-3,fever,headache Albuterol Sulfate (Albuterol Sulfate 90 Mcg 8 Gm Inhaler) 2 puff INHALE Q6H PRN PRN Reason: Shortness Of Breath Or Wheezing Albuterol/Ipratropium (Albuterol/Iprat 2.5/0.5mg 3 Ml Ampul.Neb) 3 ml INHALE Q4H PRN PRN Reason: Shortness of Breath/Wheezing Amiodarone HCl (Amiodarone Hcl 200 Mg Tablet) 200 mg PO DAILY [facility] Last Admin: 12/18/24 08:48 Dose: 200 mg Documented By: DARRYL Apixaban (Apixaban 5 Mg Tablet) 5 mg PO BID [facility] Last Admin: 12/18/24 08:48 Dose: 5 mg Documented By: DARRYL Atorvastatin Calcium (Atorvastatin Calcium 40 Mg Tablet) 40 mg PO DAILY [facility] Last Admin: 12/18/24 08:48 Dose: 40 mg Documented By: DARRYL Calcium Carbonate (Calcium Carbonate 750 Mg Tab.Chew) 750 mg PO Q4H PRN PRN Reason: Heartburn Ceftriaxone Sodium (Ceftriaxone Sodium 1 Gm Vial) 1 gm IVPUSH Q24H [facility] Last Admin: 12/17/24 23:40 Dose: 1 gm Documented By: ALESHA Dextrose (Dextrose 50 % 25 Gm/50 Ml Syringe) 25 gm IVPUSH Q15M PRN; Protocol PRN Reason: per Hypoglycemia Standing Ord. Ferrous Sulfate (Ferrous Sulfate 324 Mg Tablet.Dr) 324 mg PO DAILY [facility] Last Admin: 12/18/24 08:48 Dose: 324 mg Documented By: DARRYL Fluticasone/Vilanterol (Fluticasone/Vilanterol 200/25 Blst.W.Dev) 1 puff INHALE DAILY [facility] Last Admin: 12/18/24 08:19 Dose: 1 puff Documented By: GUALBERTO Folic Acid (Folic Acid 1 Mg Tablet) 1 mg PO DAILY [facility] Last Admin: 12/18/24 08:48 Dose: 1 mg Documented By: DARRYL Glucose (Glucose Gel 15 Gm Gel..Gram.) 15 gm PO Q15M PRN; Protocol PRN Reason: per Hypoglycemia Standing Ord. Insulin Human Lispro (Insulin Lispro 100 Unit/Ml 3 Ml Vial) 0 unit SUBCUT QIDACHS [facility]; Protocol Last Admin: 12/18/24 08:23 Dose: Not Given Documented By: DARRYL Non-Admin Reason: No Insulin Coverage Magnesium Hydroxide (Milk Of Magnesia 30 Ml Oral.Susp) 30 ml PO DAILY PRN PRN Reason: Constipation Melatonin (Melatonin 3 Mg Tablet) 6 mg PO BEDTIME PRN PRN Reason: Insomnia Melatonin (Melatonin 3 Mg Tablet) 6 mg PO BEDTIME [facility] Last Admin: 12/17/24 21:46 Dose: Not Given Documented By: ALESHA Non-Admin Reason: NPO PENDING SWALLOW EVAL Metoprolol Succinate (Metoprolol Succinate Er 50 Mg Tab.Er.24h) 50 mg PO DAILY [facility]; Protocol Last Admin: 12/18/24 08:47 Dose: 50 mg Documented By: DARRYL Oseltamivir Phosphate (Oseltamivir Phosphate 30 Mg Capsule) 30 mg PO BID [facility] Stop: 12/22/24 21:01 Last Admin: 12/18/24 09:10 Dose: 30 mg Documented By: DARRYL Paroxetine HCl (Paroxetine Hcl 10 Mg Tablet) 10 mg PO BEDTIME [facility] Last Admin: 12/17/24 21:47 Dose: Not Given Documented By: ALESHA Non-Admin Reason: NPO PENDING SWALLOW EVAL Quetiapine Fumarate (Quetiapine Fumarate 100 Mg Tablet) 100 mg PO BEDTIME [facility] Last Admin: 12/17/24 21:47 Dose: Not Given Documented By: ALESHA Non-Admin Reason: NPO PENDING SWALLOW EVAL Sodium Chloride (0.9 % Sodium Chloride Flush 3 Ml Syringe) 3 ml IVFLUSH QSHIFT [facility] Last Admin: 12/18/24 08:47 Dose: 3 ml Documented By: DARRYL Sucralfate (Sucralfate 1 Gm Tablet) 1 gm PO BID@1200,2100 [facility] Last Admin: 12/17/24 21:47 Dose: Not Given Documented By: ALESHA Non-Admin Reason: NPO PENDING SWALLOW EVAL Trazodone HCl (Trazodone Hcl 100 Mg Tablet) 100 mg PO BEDTIME [facility] Last Admin: 12/17/24 21:48 Dose: Not Given Documented By: ALESHA Non-Admin Reason: NPO PENDING SWALLOW EVAL Labs 12/16/24 14:30 12/18/24 05:26 Labs: Laboratory Results - last 24 hr 12/17/24 12/17/24 12/17/24 12:00 16:36 20:48 Anion Gap Estim Creat Clear Calc Estimated GFR POC Glucose 72 93 90 Random Glucose Calcium Iron TIBC % Saturation Unsat Iron Binding 12/18/24 12/18/24 05:26 07:37 Anion Gap 14 Estim Creat Clear Calc 49.6 Estimated GFR 49 POC Glucose 81 Random Glucose 92 Calcium 8.7 Iron 31 L TIBC 189 L % Saturation 16 Unsat Iron Binding 158 Microbiology Microbiology Results: Microbiology 12/16/24 14:30 Blood Culture - Preliminary Blood - Venous No growth after 24 hours. 12/16/24 14:30 Blood Culture - Preliminary Blood - Venous No growth after 24 hours. 12/16/24 Unknown Urine Culture - Preliminary Urine clean catch - Clean Catch Midstream No growth to date. Assessment and Plan (1) Influenza A: Status: Acute Plan This is an 79-year-old male with a past medical history of HTN, HLD, paroxysmal AFib, chronic low back pain, arthritis, asthma, diabetes and cognitive impairment who presented to the hospital by the family members with a chief complaint of generalized weakness/confusion. Toxic metabolic encephalopathy due to influenza, improved with supportive care. currently at baseline per family. has cognitive impairment at baseline, no formal diagnosis of dementia Acute hypoxic respiratory failure likely secondary to influenza a Chest x-ray negative for pneumonia Low suspicion for PE given patient already on Eliquis. DuoNebs p.r.n.. Continue Tamiflu Wean supplemental oxygen as tolerated DEXTER on CKD 3b Resolved with IV fluid AFib Rate controlled. Continue home Eliquis. Continue home amiodarone and metoprolol. UTI urine culture negative but has clinically improved with treatment, will continue 3 day course of abx Microscopic hematuria Likely in the setting of UTI. outpatinent follow up Mental health Continue paroxetine, Seroquel, trazodone Hyperlipidemia Continue statin Iron-deficiency anemia Stable H&H Continue iron supplementation DVT prophylaxis: Eliquis Code status: Full code, confirmed with the family. Quality Stroke Does the patient have a stroke diagnosis?: No VTE Prior VTE?: No VTE Risk Level:: Medical - moderate - high VTE Device Contraindication: Patient Refused VTE Drug Contraindication: N/A - Med Ordered
[2024-12-18 11:16] LABS: Glucose, Whole Blood 109 mg/dL (60-115)
--- NOTE | 2024-12-18 11:25 | MHC.SL.SWA ---
Speech Pathologist Impression: Risk of Aspiration Due to: Reduced Cognition Dysphasia Diet Status: Liquid Consistency and Strategies for Safe Swallow: Liquid Intake Recommendation: Thin Liquid Intake Strategies: Small Sips Solid Food Consistency: Dietary Recommendations: Regular Additional Modifications to Solid Foods: Recommend patient elect softer foods from regular menu due to dentures. Patient may need cuing to slow rate when drinking. Oral Medication Intake: Whole with Liquid Please contact the pharmacy regarding appropriate crushable or liquid drug formulations that are available whenever modified delivery is recommended. Compensatory Strategies and Precautions to be Taken for Safe Swallow: Sitting Upright (90 deg) Liquids from Cup Liquids from Straw Small Bites and Sips Alternate Liquids/Solids Rate of Ingestion Change Supervision While Eating and Drinking for Safe Swallow: Total Supervision (1:1) Foods to Avoid: Tough difficult to chew solids, dry, crunchy textures. Swallowing Recommended Treatments: Compens. Strategy Educat. Recommendation for Speech: Inpatient Speech Therapy Comment: Patient presents as pleasant, though mildly impulsive and confused. Most aspects of oral motor function, swallow WFL: Patient has dentures, can be impulsive and gulp while drinking. Recommend UPGRADE/START diet of Regular with Thin liquids, pills whole with liquid. Encourage patient to elect softer foods from the regular menu. Patient will require supervision at meals to assure he is oriented, progressing with meal, and cued if drinking liquids too quickly. TRAFFIC LINE PAINTER to f/u X1 for toleration of diet. CHANELLE MULLER notified of recommendations by secure text, RN in person. Frequency/Duration: Date Range for Service Req: Timeline to reassess: Civil Laboratory Technician Clinican/Clinical Fellow: No Supervisory Statement: I have reviewed and agree with the student/clinical fellow's documentation: N/A Speech Language Pathologist: Lynn Rhodes M.A., [facility]-TRAFFIC LINE PAINTER
[2024-12-18] MEDS: Sucralfate 1 GM TABLET PO ×2 (12:55→20:29)
[2024-12-18 15:41] VITALS: BP 116/55; PULSE 70; RESP 16; TEMP 37.2; O2SAT 94
[2024-12-18 16:32] LABS: Glucose, Whole Blood 107 mg/dL (60-115)
[2024-12-18 19:18] VITALS: BP 118/63; PULSE 68; RESP 15; TEMP 36.6; O2SAT 95
[2024-12-18 19:54] LABS: Glucose, Whole Blood 136 mg/dL (60-115)
[2024-12-18] MEDS: PARoxetine HCL 10 MG TABLET PO (20:29)
[2024-12-18] MEDS: traZODone HCL 100 MG TABLET PO (20:29)
[2024-12-18] MEDS: QUEtiapine Fumarate 100 MG TABLET PO (20:29)
[2024-12-18] MEDS: Melatonin 3 MG TABLET 6 MG PO (20:30)
[2024-12-18] MEDS: cefTRIAXone sodium 1 GM VIAL IVPUSH (23:14)
[2024-12-19] VITALS (7 sets, daily range): BP systolic 110–122; BP diastolic 57–68; PULSE 56–62; RESP 15–18; TEMP 36.1–36.4; O2SAT 94–97
[2024-12-19] MEDS: Acetaminophen 325 MG TABLET 650 MG PO ×3 (01:46→20:50)
[2024-12-19 07:45] LABS: Glucose, Whole Blood 117 mg/dL (60-115)
[2024-12-19] MEDS: Fluticasone/Vilanterol 200/25 BLST.W.DEV 1 PUFF INHALE (08:09)
[2024-12-19 09:13] LABS: Hematocrit 31.7 % (42.0-52.0); Hemoglobin 10.4 g/dl (14.0-18.0); Mean Corpuscular HGB Conc 32.8 g/dl (31.0-36.0); Mean Corpuscular Hemoglobin 31.9 pg (27.0-33.0); Mean Corpuscular Volume 97.2 fL (80.0-98.0); Mean Platelet Volume 10.2 fL (9.4-12.4); Platelet Count 160 X10*3/uL (160-400); Red Blood Count 3.26 X10*6/uL (4.60-5.80); Red Cell Distribution Width 13.3 % (11.0-16.0); White Blood Count 2.7 X10*3/uL (4.8-10.8)
[2024-12-19 09:27] LABS: Anion Gap 13 (12-20); Blood Urea Nitrogen 36 mg/dL (9-16); Calcium 8.2 mg/dL (8.4-10.2); Carbon Dioxide 28 mmol/L (22-29); Chloride 104 mmol/L (96-108); Creatinine Clr Calc Pharmacy 39.9; Estimated Glomerular Filt Rate 38; Glucose Random 137 mg/dL (60-115); Sodium 141 mmol/L (135-145)
--- NOTE | 2024-12-19 09:50 | MHC.SL.SWA ---
Speech Pathologist Impression: Risk of Aspiration Risk of Aspiration Due to: Reduced Cognition Dysphasia Diet Status: No Change Liquid Consistency and Strategies for Safe Swallow: Liquid Intake Recommendation: Thin Liquid Intake Strategies: Small Sips No Straws Solid Food Consistency: Dietary Recommendations: Regular Additional Modifications to Solid Foods: Patient is recommended softer foods on regular menu d/t dentures and some confusion/impulsivity. Patient will need 1:1 supervision and cuing for slow rate while drinking. Oral Medication Intake: Whole with Liquid Please contact the pharmacy regarding appropriate crushable or liquid drug formulations that are available whenever modified delivery is recommended. Compensatory Strategies and Precautions to be Taken for Safe Swallow: Sitting Upright (90 deg) No Straw Small Bites and Sips Alternate Liquids/Solids Rate of Ingestion Change Supervision While Eating and Drinking for Safe Swallow: Total Supervision (1:1) Foods to Avoid: Encourage patient to elect softer foods from regular menu/avoid difficult to chew solids, too large pieces of food. Swallowing Recommended Treatments: Compens. Strategy Educat. Recommendation for Speech: D/C- Please re-refer with any further concerns Comment: Patient presents as pleasant, though mildly impulsive and confused. Most aspects of oral motor function, swallow WFL: Patient has dentures, can be impulsive and gulp while drinking. Recommend UPGRADE/START diet of Regular with Thin liquids, pills whole with liquid. Encourage patient to elect softer foods from the regular menu. Patient will require supervision at meals to assure he is oriented, progressing with meal, and cued if drinking liquids too quickly. Frequency/Duration: Date Range for Service Req: Timeline to reassess: Crane Manager Clinican/Clinical Fellow: No Supervisory Statement: I have reviewed and agree with the student/clinical fellow's documentation: N/A Speech Language Pathologist: Kristel Yap M.A., CCC-ASSEMBLER FOR PULLER OVER HAND
--- NOTE | 2024-12-19 09:52 | MHC.SL.SWA ---
Speech Pathologist Impression: Risk of Aspiration Risk of Aspiration Due to: Reduced Cognition Dysphasia Diet Status: No Change Liquid Consistency and Strategies for Safe Swallow: Liquid Intake Recommendation: Thin Liquid Intake Strategies: Small Sips Solid Food Consistency: Dietary Recommendations: Regular Additional Modifications to Solid Foods: Patient is recommended softer foods on regular menu d/t dentures and some confusion/impulsivity. Patient will need 1:1 supervision and cuing for slow rate while drinking. Oral Medication Intake: Whole with Liquid Please contact the pharmacy regarding appropriate crushable or liquid drug formulations that are available whenever modified delivery is recommended. Compensatory Strategies and Precautions to be Taken for Safe Swallow: Sitting Upright (90 deg) Small Bites and Sips Alternate Liquids/Solids Rate of Ingestion Change Supervision While Eating and Drinking for Safe Swallow: Total Supervision (1:1) Foods to Avoid: Encourage patient to elect softer foods from regular menu/avoid difficult to chew solids, too large pieces of food. Swallowing Recommended Treatments: Compens. Strategy Educat. Recommendation for Speech: D/C- Please re-refer with any further concerns Comment: Patient presents as pleasant, though mildly impulsive and confused. Most aspects of oral motor function, swallow WFL: Patient has dentures, can be impulsive and gulp while drinking. Encourage patient to elect softer foods from the regular menu. Patient will require supervision at meals to assure he is oriented, progressing with meal, and cued if drinking liquids too quickly. Credit Card Interviewer Clinican/Clinical Fellow: No Supervisory Statement: I have reviewed and agree with the student/clinical fellow's documentation: N/A Speech Language Pathologist: Kristel Yap M.A., CCC-HANDKERCHIEF PRESSER
[2024-12-19] MEDS: 0.9 % Sodium Chloride Flush 3 ML SYRINGE IVFLUSH ×3 (10:49→20:53)
--- NOTE | 2024-12-19 10:49 | P.PNIM_ITS ---
Subjective Subjective Date of Service: 12/19/24 Interval History: per granddaughter pt with improved PO intake; dyspnea resolved; afebrile; coughing Review of Systems Review of Systems: Yes all other systems are reviewed and are negative Physical Exam 2 Vital Signs: Vital Signs: Last Vital Signs Temp 97.2 F 12/19/24 07:17 Pulse 60 12/19/24 08:11 Resp 15 12/19/24 08:11 BP 122/66 12/19/24 07:17 Pulse Ox 97 12/19/24 07:17 O2 Del Method Nasal Cannula 12/19/24 07:17 O2 Flow Rate 2 12/19/24 07:17 Oxygen Flow Rate 2 12/16/24 13:59 BMI result Body Mass Index 37.8 Gen: in no acute distress HEENT: sclera anicteric, moist mucus membranes Neck: supple Lungs: clear to auscultation bilaterally Heart: regular rate and rhythm, no murmurs Abd: soft, non-tender, non-distended Ext: no edema Skin: warm/well-perfused Neuro: alert and oriented to self only; no focal weakness Psych: impaired insight Objective Data Active Medications Acetaminophen (Acetaminophen 325 Mg Tablet) 650 mg PO Q6H PRN PRN Reason: Pain, Mild 1-3,fever,headache Last Admin: 12/19/24 01:46 Dose: 650 mg Documented By: IVONNE Albuterol Sulfate (Albuterol Sulfate 90 Mcg 8 Gm Inhaler) 2 puff INHALE Q6H PRN PRN Reason: Shortness Of Breath Or Wheezing Albuterol/Ipratropium (Albuterol/Iprat 2.5/0.5mg 3 Ml Ampul.Neb) 3 ml INHALE Q4H PRN PRN Reason: Shortness of Breath/Wheezing Amiodarone HCl (Amiodarone Hcl 200 Mg Tablet) 200 mg PO DAILY [facility] Last Admin: 12/18/24 08:48 Dose: 200 mg Documented By: DARRYL Apixaban (Apixaban 5 Mg Tablet) 5 mg PO BID [facility] Last Admin: 12/18/24 20:29 Dose: 5 mg Documented By: IVONNE Atorvastatin Calcium (Atorvastatin Calcium 40 Mg Tablet) 40 mg PO DAILY [facility] Last Admin: 12/18/24 08:48 Dose: 40 mg Documented By: DARRYL Calcium Carbonate (Calcium Carbonate 750 Mg Tab.Chew) 750 mg PO Q4H PRN PRN Reason: Heartburn Dextrose (Dextrose 50 % 25 Gm/50 Ml Syringe) 25 gm IVPUSH Q15M PRN; Protocol PRN Reason: per Hypoglycemia Standing Ord. Ferrous Sulfate (Ferrous Sulfate 324 Mg Tablet.Dr) 324 mg PO DAILY [facility] Last Admin: 12/18/24 08:48 Dose: 324 mg Documented By: DARRYL Fluticasone/Vilanterol (Fluticasone/Vilanterol 200/25 Blst.W.Dev) 1 puff INHALE DAILY [facility] Last Admin: 12/19/24 08:09 Dose: 1 puff Documented By: ERICA Folic Acid (Folic Acid 1 Mg Tablet) 1 mg PO DAILY [facility] Last Admin: 12/18/24 08:48 Dose: 1 mg Documented By: DARRYL Glucose (Glucose Gel 15 Gm Gel..Gram.) 15 gm PO Q15M PRN; Protocol PRN Reason: per Hypoglycemia Standing Ord. Lactated Ringer's (Lr) 1,000 mls @ 125 mls/hr IVCONT .Q8H [facility] Stop: 12/19/24 17:59 Insulin Human Lispro (Insulin Lispro 100 Unit/Ml 3 Ml Vial) 0 unit SUBCUT QIDACHS [facility]; Protocol Last Admin: 12/19/24 07:56 Dose: Not Given Documented By: DARRYL Non-Admin Reason: No Insulin Coverage Magnesium Hydroxide (Milk Of Magnesia 30 Ml Oral.Susp) 30 ml PO DAILY PRN PRN Reason: Constipation Melatonin (Melatonin 3 Mg Tablet) 6 mg PO BEDTIME PRN PRN Reason: Insomnia Melatonin (Melatonin 3 Mg Tablet) 6 mg PO BEDTIME [facility] Last Admin: 12/18/24 20:30 Dose: 6 mg Documented By: IVONNE Metoprolol Succinate (Metoprolol Succinate Er 50 Mg Tab.Er.24h) 50 mg PO DAILY [facility]; Protocol Last Admin: 12/18/24 08:47 Dose: 50 mg Documented By: DARRYL Oseltamivir Phosphate (Oseltamivir Phosphate 30 Mg Capsule) 30 mg PO BID [facility] Stop: 12/22/24 21:01 Last Admin: 12/18/24 20:29 Dose: 30 mg Documented By: IVONNE Paroxetine HCl (Paroxetine Hcl 10 Mg Tablet) 10 mg PO BEDTIME [facility] Last Admin: 12/18/24 20:29 Dose: 10 mg Documented By: IVONNE Quetiapine Fumarate (Quetiapine Fumarate 100 Mg Tablet) 100 mg PO BEDTIME [facility] Last Admin: 12/18/24 20:29 Dose: 100 mg Documented By: IVONNE Sodium Chloride (0.9 % Sodium Chloride Flush 3 Ml Syringe) 3 ml IVFLUSH QSHIFT [facility] Last Admin: 12/18/24 20:32 Dose: 3 ml Documented By: IVONNE Sucralfate (Sucralfate 1 Gm Tablet) 1 gm PO BID@1200,2100 [facility] Last Admin: 12/18/24 20:29 Dose: 1 gm Documented By: IVONNE Trazodone HCl (Trazodone Hcl 100 Mg Tablet) 100 mg PO BEDTIME [facility] Last Admin: 12/18/24 20:29 Dose: 100 mg Documented By: IVONNE Labs 12/19/24 08:53 12/19/24 08:53 Labs: Laboratory Results - last 24 hr 12/18/24 12/18/24 12/18/24 11:03 16:12 19:44 MCV MCH MCHC RDW Plt Count MPV Absolute Nucleated RBC Nucleated RBC % (auto) Anion Gap Estim Creat Clear Calc Estimated GFR POC Glucose 109 107 136 H Random Glucose Calcium Total Creatine Kinase 12/19/24 12/19/24 07:18 08:53 MCV 97.2 MCH 31.9 MCHC 32.8 RDW 13.3 Plt Count 160 MPV 10.2 Absolute Nucleated RBC 0.000 Nucleated RBC % (auto) 0.0 Anion Gap 13 Estim Creat Clear Calc 39.9 Estimated GFR 38 POC Glucose 117 H Random Glucose 137 H Calcium 8.2 L Total Creatine Kinase 69 Microbiology Microbiology Results: Microbiology 12/16/24 14:30 Blood Culture - Preliminary Blood - Venous No growth after 48 hours. 12/16/24 14:30 Blood Culture - Preliminary Blood - Venous No growth after 48 hours. 12/16/24 Unknown Urine Culture - Final Urine clean catch - Clean Catch Midstream Assessment and Plan (1) Influenza A: Status: Acute Plan d3 for 79yo M with HTN, HLD, pAF, chronic LBP, arthritis, asthma, DM2, cognitivite impairment came in with weakness/confusion, admitted for hypoxia due to influenza acute respiratory failure with hypoxia due to influenza A - wean O2 as tolerated; continue oseltamivir; no evidence of bacterial superinfection acute toxic-metabolic encephalopathy - improving per family; currently at baseline; has history of cognitive impairment but no formal diagnosis of dementia DEXTER/CKD3 - SCr back up today; will give another 1L of LR and recheck BMP in AM pAF - continue apixaban, amiodarone, metoprolol succinate question of UTI - d/c ceftriaxone as UCx does not meet criteria for infection - repeat UTI as outpt to see if microscopic hematuria resolves mood disorder - continue trazodone, paroxetine, quetiapine HLD - continue statin WINIFRED - continue Fe asthma, not in acute exac - Breo, Duoneb VTE ppx - apixaban dispo - anticipate home in next 1-2d once weaned off O2; PT eval to see if services needed In my clinical judgment, the patient requires continued inpatient hospitalization for the following reasons: hypoxia Total time managing care of this patient today: 40 minutes. Quality Stroke Does the patient have a stroke diagnosis?: No VTE Prior VTE?: No VTE Risk Level:: Medical - moderate - high VTE Device Contraindication: Patient Refused VTE Drug Contraindication: N/A - Med Ordered
[2024-12-19] MEDS: Apixaban 5 MG TABLET PO ×2 (10:50→20:49)
[2024-12-19] MEDS: Atorvastatin Calcium 40 MG TABLET PO (10:50)
[2024-12-19] MEDS: Amiodarone HCL 200 MG TABLET PO (10:51)
[2024-12-19] MEDS: Oseltamivir Phosphate 30 MG CAPSULE PO ×2 (10:51→20:49)
[2024-12-19] MEDS: Ferrous Sulfate 324 MG TABLET.DR PO (10:52)
[2024-12-19] MEDS: Folic Acid 1 MG TABLET PO (10:52)
--- NOTE | 2024-12-19 10:59 | PC.NURSE ---
HR 56,held Metroprolol ,Dr. Adam notified
[2024-12-19] MEDS: Lactated Ringers 1,000 ML 125 ML IVCONT (11:01)
[2024-12-19 11:16] LABS: Glucose, Whole Blood 137 mg/dL (60-115)
--- NOTE | 2024-12-19 12:10 | MHC.CM.PN ---
PER MD ROUNDS, PT EXPECTED TO BE CLEARED TO DC TOMORROW DCP: HOME WITH RESUMPTION OF FAMILY SUPPORT AND POSSIBLY NEW [facility] FAMILY TO TRANSPORT
[2024-12-19] MEDS: Sucralfate 1 GM TABLET PO ×2 (13:28→20:49)
[2024-12-19 16:07] LABS: Glucose, Whole Blood 114 mg/dL (60-115)
[2024-12-19 20:10] LABS: Glucose, Whole Blood 150 mg/dL (60-115)
[2024-12-19] MEDS: traZODone HCL 100 MG TABLET PO (20:49)
[2024-12-19] MEDS: Melatonin 3 MG TABLET 6 MG PO (20:49)
[2024-12-19] MEDS: PARoxetine HCL 10 MG TABLET PO (20:50)
[2024-12-19] MEDS: QUEtiapine Fumarate 100 MG TABLET PO (20:50)
[2024-12-20] VITALS (7 sets, daily range): BP systolic 114–127; BP diastolic 56–86; PULSE 57–67; RESP 18; TEMP 36.6–36.9; O2SAT 88–96
[2024-12-20] MEDS: Fluticasone/Vilanterol 200/25 BLST.W.DEV 1 PUFF INHALE (07:42)
[2024-12-20 07:57] LABS: Glucose, Whole Blood 90 mg/dL (60-115)
[2024-12-20 08:15] LABS: Hematocrit 30.8 % (42.0-52.0); Hemoglobin 9.8 g/dl (14.0-18.0); Mean Corpuscular HGB Conc 31.8 g/dl (31.0-36.0); Mean Corpuscular Hemoglobin 31.6 pg (27.0-33.0); Mean Corpuscular Volume 99.4 fL (80.0-98.0); Mean Platelet Volume 10.5 fL (9.4-12.4); Platelet Count 165 X10*3/uL (160-400); Red Cell Distribution Width 13.2 % (11.0-16.0)
--- NOTE | 2024-12-20 08:43 | HO.PM.IMPN ---
Subjective Subjective Date of Service: 12/20/24 Interval History: Follow up DEXTER, FLU and hypoxia Feeling better still with cough Review of Systems Review of Systems: Yes all other systems are reviewed and are negative Physical Exam Vital Signs: Vital Signs: Last Vital Signs Temp 98.5 F 12/20/24 07:18 Pulse 67 12/20/24 07:45 Resp 18 12/20/24 07:45 BP 114/56 L 12/20/24 07:18 Pulse Ox 96 12/20/24 07:18 O2 Del Method Nasal Cannula 12/20/24 07:18 O2 Flow Rate 2 12/20/24 07:18 Oxygen Flow Rate 2 12/16/24 13:59 BMI result Body Mass Index 37.8 Appearing in no acute distress lung sounds rhonchi heart regular rate rhythm, clear S1, S2 positive bowel sounds, abdomen is soft, nontender neuro patient is alert x3, no focal deficits Objective Data Active Medications Acetaminophen (Acetaminophen 325 Mg Tablet) 650 mg PO Q6H PRN PRN Reason: Pain, Mild 1-3,fever,headache Last Admin: 12/19/24 20:50 Dose: 650 mg Documented By: ALFRED Comments: per pt request Albuterol Sulfate (Albuterol Sulfate 90 Mcg 8 Gm Inhaler) 2 puff INHALE Q6H PRN PRN Reason: Shortness Of Breath Or Wheezing Albuterol/Ipratropium (Albuterol/Iprat 2.5/0.5mg 3 Ml Ampul.Neb) 3 ml INHALE Q4H PRN PRN Reason: Shortness of Breath/Wheezing Amiodarone HCl (Amiodarone Hcl 200 Mg Tablet) 200 mg PO DAILY [facility] Last Admin: 12/19/24 10:51 Dose: 200 mg Documented By: DARRYL Apixaban (Apixaban 5 Mg Tablet) 5 mg PO BID [facility] Last Admin: 12/19/24 20:49 Dose: 5 mg Documented By: ALFRED Atorvastatin Calcium (Atorvastatin Calcium 40 Mg Tablet) 40 mg PO DAILY [facility] Last Admin: 12/19/24 10:50 Dose: 40 mg Documented By: DARRYL Calcium Carbonate (Calcium Carbonate 750 Mg Tab.Chew) 750 mg PO Q4H PRN PRN Reason: Heartburn Dextrose (Dextrose 50 % 25 Gm/50 Ml Syringe) 25 gm IVPUSH Q15M PRN; Protocol PRN Reason: per Hypoglycemia Standing Ord. Ferrous Sulfate (Ferrous Sulfate 324 Mg Tablet.Dr) 324 mg PO DAILY [facility] Last Admin: 12/19/24 10:52 Dose: 324 mg Documented By: DARRYL Fluticasone/Vilanterol (Fluticasone/Vilanterol 200/25 Blst.W.Dev) 1 puff INHALE DAILY [facility] Last Admin: 12/20/24 07:42 Dose: 1 puff Documented By: KVNG Folic Acid (Folic Acid 1 Mg Tablet) 1 mg PO DAILY [facility] Last Admin: 12/19/24 10:52 Dose: 1 mg Documented By: DARRYL Glucose (Glucose Gel 15 Gm Gel..Gram.) 15 gm PO Q15M PRN; Protocol PRN Reason: per Hypoglycemia Standing Ord. Insulin Human Lispro (Insulin Lispro 100 Unit/Ml 3 Ml Vial) 0 unit SUBCUT QIDACHS [facility]; Protocol Last Admin: 12/20/24 08:03 Dose: Not Given Documented By: HEATHER Non-Admin Reason: No Insulin Coverage Magnesium Hydroxide (Milk Of Magnesia 30 Ml Oral.Susp) 30 ml PO DAILY PRN PRN Reason: Constipation Melatonin (Melatonin 3 Mg Tablet) 6 mg PO BEDTIME PRN PRN Reason: Insomnia Melatonin (Melatonin 3 Mg Tablet) 6 mg PO BEDTIME [facility] Last Admin: 12/19/24 20:49 Dose: 6 mg Documented By: ALFRED Metoprolol Succinate (Metoprolol Succinate Er 50 Mg Tab.Er.24h) 50 mg PO DAILY [facility]; Protocol Last Admin: 12/19/24 10:51 Dose: Not Given Documented By: DARRYL Non-Admin Reason: HR 56 Oseltamivir Phosphate (Oseltamivir Phosphate 30 Mg Capsule) 30 mg PO BID [facility] Stop: 12/22/24 21:01 Last Admin: 12/19/24 20:49 Dose: 30 mg Documented By: ALFRED Paroxetine HCl (Paroxetine Hcl 10 Mg Tablet) 10 mg PO BEDTIME [facility] Last Admin: 12/19/24 20:50 Dose: 10 mg Documented By: ALFRED Quetiapine Fumarate (Quetiapine Fumarate 100 Mg Tablet) 100 mg PO BEDTIME [facility] Last Admin: 12/19/24 20:50 Dose: 100 mg Documented By: ALFRED Sodium Chloride (0.9 % Sodium Chloride Flush 3 Ml Syringe) 3 ml IVFLUSH QSHIFT [facility] Last Admin: 12/19/24 20:53 Dose: 3 ml Documented By: ALFRED Sucralfate (Sucralfate 1 Gm Tablet) 1 gm PO BID@1200,2100 [facility] Last Admin: 12/19/24 20:49 Dose: 1 gm Documented By: ALFRED Trazodone HCl (Trazodone Hcl 100 Mg Tablet) 100 mg PO BEDTIME [facility] Last Admin: 12/19/24 20:49 Dose: 100 mg Documented By: ALFRED Labs 12/20/24 07:05 12/20/24 07:05 Labs: Laboratory Results - last 24 hr 12/19/24 12/19/24 12/19/24 08:53 11:12 16:02 MCV 97.2 MCH 31.9 MCHC 32.8 RDW 13.3 Plt Count 160 MPV 10.2 Absolute Nucleated RBC 0.000 Nucleated RBC % (auto) 0.0 Anion Gap 13 Estim Creat Clear Calc 39.9 Estimated GFR 38 POC Glucose 137 H 114 Random Glucose 137 H Calcium 8.2 L Total Creatine Kinase 69 12/19/24 12/20/24 12/20/24 19:45 07:05 07:18 MCV 99.4 H MCH 31.6 MCHC 31.8 RDW 13.2 Plt Count 165 MPV 10.5 Absolute Nucleated RBC 0.000 Nucleated RBC % (auto) 0.0 Anion Gap Estim Creat Clear Calc Estimated GFR POC Glucose 150 H 90 Random Glucose Calcium Total Creatine Kinase Assessment and Plan (1) Influenza A: Status: Acute Plan 79yo M with HTN, HLD, pAF, chronic LBP, arthritis, asthma, DM2, cognitivite impairment came in with weakness/confusion, admitted for hypoxia due to influenza Acute respiratory failure with hypoxia due to influenza A wean O2 as tolerated continue oseltamivir no evidence of bacterial superinfection Acute toxic-metabolic encephalopathy improving per family currently at baseline has history of cognitive impairment but no formal diagnosis of dementia DEXTER/CKD3. Improving Down to 1.67 today PAF continue apixaban, amiodarone, metoprolol succinate mood disorder continue trazodone, paroxetine, quetiapine HLD continue statin WINIFRED continue Fe \Asthma, not in acute exac Breo, Duoneb VTE ppx apixaban dispo anticipate home in next 1-2d once weaned off O2; PT eval to see if services needed In my clinical judgment, the patient requires continued inpatient hospitalization for the following reasons: hypoxia Total time managing care of this patient today: 40 minutes. Quality Stroke Does the patient have a stroke diagnosis?: No VTE Prior VTE?: No VTE Risk Level:: Medical - moderate - high VTE Device Contraindication: Patient Refused VTE Drug Contraindication: N/A - Med Ordered
[2024-12-20] MEDS: Folic Acid 1 MG TABLET PO (08:44)
[2024-12-20] MEDS: Ferrous Sulfate 324 MG TABLET.DR PO (08:44)
[2024-12-20] MEDS: Atorvastatin Calcium 40 MG TABLET PO (08:44)
[2024-12-20] MEDS: Amiodarone HCL 200 MG TABLET PO (08:44)
[2024-12-20] MEDS: Metoprolol Succinate ER 50 MG TAB.ER.24H PO (08:44)
[2024-12-20] MEDS: Apixaban 5 MG TABLET PO (08:45)
[2024-12-20] MEDS: Oseltamivir Phosphate 30 MG CAPSULE PO ×2 (08:45→20:54)
[2024-12-20 08:48] LABS: Anion Gap 10 (12-20); Blood Urea Nitrogen 31 mg/dL (9-16); Calcium 8.4 mg/dL (8.4-10.2); Carbon Dioxide 31 mmol/L (22-29); Chloride 107 mmol/L (96-108); Creatinine Clr Calc Pharmacy 41.6; Estimated Glomerular Filt Rate 40; Glucose Random 91 mg/dL (60-115); Potassium 4.3 mmol/L (3.3-5.1); Sodium 144 mmol/L (135-145)
[2024-12-20] MEDS: Sucralfate 1 GM TABLET PO ×2 (11:42→20:54)
[2024-12-20 11:47] LABS: Glucose, Whole Blood 129 mg/dL (60-115)
[2024-12-20 16:17] LABS: Glucose, Whole Blood 114 mg/dL (60-115)
[2024-12-20 19:40] LABS: Glucose, Whole Blood 142 mg/dL (60-115)
[2024-12-20] MEDS: Melatonin 3 MG TABLET 6 MG PO (20:54)
[2024-12-20] MEDS: Apixaban 2.5 MG TABLET PO (20:54)
[2024-12-20] MEDS: traZODone HCL 100 MG TABLET PO (20:54)
[2024-12-20] MEDS: PARoxetine HCL 10 MG TABLET PO (20:55)
[2024-12-20] MEDS: QUEtiapine Fumarate 100 MG TABLET PO (20:55)
[2024-12-20] MEDS: 0.9 % Sodium Chloride Flush 3 ML SYRINGE IVFLUSH (20:57)
[2024-12-21 04:00] VITALS: BP 120/62; PULSE 56; RESP 18; TEMP 36.3; O2SAT 94
[2024-12-21 07:39] VITALS: BP 121/60; PULSE 57; RESP 18; TEMP 36.9; O2SAT 97
--- NOTE | 2024-12-21 07:43 | PM.DS ---
DS: Providers Provider Date of Service: 12/21/24 Date of admission: 12/17/24 00:07 Date of discharge: 12/21/24 Primary care physician: Unknown Physician DS: Diagnosis Discharge Diagnosis (1) Influenza A: Status: Acute DS: Summary Hospital Course Hospital Course: History and physical as per admitting provider. 79-year-old male with a past medical history of HTN, HLD, paroxysmal AFib, chronic low back pain, arthritis, asthma, diabetes and presented to the hospital by the family members with a chief complaint of generalized weakness/confusion. Most of the history obtained from the patient's granddaughter at bedside. Reportedly patient has been not doing well over the past couple days. Has been not himself and appears to be confused. At baseline patient able to walk few steps. Over the past couple days he is more sleepy. Denies any falls or injury. Reports patient also has decreased intake. Patient does have subjective fevers at home. Mentioned that patient has been having cough with occasional sputum production which is yellow in color. Family mentioned that all the family members were sick with flu-like symptoms; and the patient was exposed to sick family members. Patient denies any abdominal pain or chest pain. Denies any shortness with the dyspnea on exertion. Oriented times 1-2. Moves all extremities equally at the time of my interview. Review of all other systems is negative except mentioned above ER course:Per ER team, patient appears to be mildly confused; CT head showed no acute findings; patient tested positive for influenza; urinalysis abnormal consistent with UTI. Patient appears to be sleepy but moving all extremities equally, grossly nonfocal examination. Given Tamiflu. Patient was also hypoxic to 84%. Chest x-ray showed no acute cardiopulmonary process. Patient is already on Eliquis-low suspicion for pulmonary embolism. 79-year-old man treated for acute respiratory failure with hypoxia secondary to influenza A. Treated with Tamiflu with no evidence of bacterial infection. Did have some acute toxic metabolic encephalopathy secondary to virus but patient now at baseline. He was noted to have some DEXTER on CKD stage 3. Creatinine now down to 1.67 and this should continue to improve. Plan is to discharge patient home with 3 more days of Tamiflu, family is in agreement. Paroxysmal atrial fibrillation. Continue apixaban, amiodarone and metoprolol Mental health. Continue trazodone, paroxetine and Seroquel Hyperlipidemia. Continue statin Iron-deficiency anemia. Continue iron supplementation Asthma. No acute exacerbation. Continue Breo and inhalers Time Attestation Discharge Coordination Time (in mins): 42 Quality: Safe Use of Opioids Does Pt have an Active Cancer Diagnosis on the Problem List?: No Quality: Stroke Does the patient have a stroke diagnosis?: No Physical Exam Vital Signs: Vital Signs: Last Vital Signs Temp 98.4 F 12/21/24 07:39 Pulse 57 12/21/24 07:39 Resp 18 12/21/24 07:39 BP 121/60 12/21/24 07:39 Pulse Ox 97 12/21/24 07:39 O2 Del Method Nasal Cannula 12/21/24 07:39 O2 Flow Rate 1 12/21/24 07:39 Oxygen Flow Rate 2 12/16/24 13:59 BMI result Body Mass Index 37.8 Appearing in no acute distress head is normocephalic atraumatic eyes pupils are PERRLA sclera is anicteric mouth throat mucous membranes are intact and moist neck is supple no lymphadenopathy, no JVD noted lung sounds are clear to auscultation heart regular rate rhythm, clear S1, S2 positive bowel sounds, abdomen is soft, nontender neuro patient is alert x3, no focal deficits DS: Data Data Completed and Pending Labs on day of discharge: Laboratory Results - last 24 hr 12/20/24 12/20/24 12/20/24 07:05 07:18 11:37 WBC 3.0 L RBC 3.10 L Hgb 9.8 L Hct 30.8 L MCV 99.4 H MCH 31.6 MCHC 31.8 RDW 13.2 Plt Count 165 MPV 10.5 Absolute Nucleated RBC 0.000 Nucleated RBC % (auto) 0.0 Sodium 144 Potassium 4.3 Chloride 107 Carbon Dioxide 31 H Anion Gap 10 L BUN 31 H Creatinine 1.67 H Estim Creat Clear Calc 41.6 Estimated GFR 40 POC Glucose 90 129 H Random Glucose 91 Calcium 8.4 12/20/24 12/20/24 16:02 19:28 WBC RBC Hgb Hct MCV MCH MCHC RDW Plt Count MPV Absolute Nucleated RBC Nucleated RBC % (auto) Sodium Potassium Chloride Carbon Dioxide Anion Gap BUN Creatinine Estim Creat Clear Calc Estimated GFR POC Glucose 114 142 H Random Glucose Calcium Preliminary micro results at discharge 12/16/24 14:30 Blood Culture - Preliminary Blood - Venous No growth after 48 hours. 12/16/24 14:30 Blood Culture - Preliminary Blood - Venous No growth after 48 hours. Discharge Plan Discharge Anticipated Discharge Date/Time: 12/21/24 07:40 Patient Disposition: Home, Self-Care Discharge Diagnosis: Hypoxia Influenza a Discharge Medications: New oseltamivir 30 mg Capsule 30 mg PO BID Qty: 3 0RF prednisone 10 mg tablet 40 mg PO DIRECTED Qty: 12 0RF Rx Instructions: take 40mg daily for 3 days Continued Eliquis 5 mg tablet 5 mg PO BID Qty: 60 0RF albuterol sulfate 90 mcg/actuation HFA aerosol inhaler 2 inh inhalation Q6H PRN (Reason: Shortness Of Breath Or Wheezing) atorvastatin 40 mg tablet 40 mg PO DAILY ferrous sulfate 325 mg (65 mg iron) tablet 325 mg PO DAILY folic acid 1 mg tablet 1 mg PO DAILY metformin 850 mg tablet 850 mg PO BID metoprolol succinate 50 mg tablet extended release 24 hr 50 mg PO DAILY multivitamin Tablet 1 tab PO DAILY paroxetine HCl 10 mg tablet 10 mg PO BEDTIME sucralfate 1 gram tablet 1 g PO BID@1200,2100 melatonin 5 mg tablet 5 mg PO BEDTIME Breo Ellipta 200-25 mcg/dose blister with device 1 ea inhalation DAILY trazodone 100 mg tablet 100 mg PO BEDTIME amiodarone 200 mg tablet 200 mg PO DAILY quetiapine 100 mg tablet 100 mg PO BEDTIME Discharge Orders: Discharge Order (Routine); Ordered 12/21/24 Ordered By: Maribel Archibald Diet: Advance to usual diet Activity on Discharge: As tolerated Stand Alone Forms: Patient Portal Discharge page Print Language: Citizen Of [place] Care Plan Goals: Complete 3 more doses of Tamiflu Health Concerns: Hypoxia Influenza a Plan of Treatment: Follow-up with primary care provider as needed Take all medications as prescribed Assessment: See discharge summary
[2024-12-21 07:44] LABS: Glucose, Whole Blood 101 mg/dL (60-115)
[2024-12-21] MEDS: Ferrous Sulfate 324 MG TABLET.DR PO (07:47)
[2024-12-21] MEDS: Metoprolol Succinate ER 50 MG TAB.ER.24H PO (07:47)
[2024-12-21] MEDS: Folic Acid 1 MG TABLET PO (07:48)
[2024-12-21] MEDS: Oseltamivir Phosphate 30 MG CAPSULE PO (07:48)
[2024-12-21] MEDS: Amiodarone HCL 200 MG TABLET PO (07:48)
[2024-12-21] MEDS: Atorvastatin Calcium 40 MG TABLET PO (07:48)
[2024-12-21] MEDS: Apixaban 2.5 MG TABLET PO (07:48)
[2024-12-21] MEDS: Fluticasone/Vilanterol 200/25 BLST.W.DEV 1 PUFF INHALE (08:26)
[2024-12-21 08:27] VITALS: PULSE 51; RESP 18; O2SAT 92
[2024-12-21 08:29] VITALS: PULSE 57; O2SAT 92
[2024-12-21] MEDS: predniSONE 20 MG TABLET 40 MG PO (09:05)
--- NOTE | 2024-12-21 09:23 | MHC.CM.PN ---
Patient medically cleared for dc home w/ family support. Granddaughter at bedside to transport home. IMM delivered.
--- NOTE | 2024-12-23 15:17 | P.CDIM_ITS ---
PROVIDER RESPONSE TEXT: To clarify, the appropriate diagnosis supported by the clinical indicators: Mild intermittent QUERY TEXT: PHYSICIAN'S DOCUMENTATION REQUEST Date of Query: 12/17/2024 11:57 AM EDT Patient Name: Wili Ruiz Admit Date: 12/17/2024 Dear Maribel Archibald TOW CAR DRIVER, A review of the medical record indicates additional documentation may be needed. Please review below and update the documentation accordingly. Clinical indicators: Progress notes: Asthma Albuterol Patient with Influenza was hypoxic to 84% on NC Based on the above, please clarify in the Progress Notes further specificity regarding the type of as thma: Mild intermittent Mild persistent Severe persistent Moderate persistent Other (explain) Clinically unable to determine (explain) Thank you, Nikole Wiggins, CCS, CDIS Use of terms such as suspected, likely, concern for, or probable (associated with a specific diagnosi s that is being evaluated, monitored, or treated as if it exists) are acceptable and can be coded in the inpatient se tting, when documented at the time of discharge. Please use your independent medical judgment in providing your response. THIS QUERY IS PART OF THE PERMANENT MEDICAL RECORD
== END 2024-12-21 09:50 | disposition home or self-care (01) | DRG 865 ==
LOC: HO.ED 18:44 → HO.EDOVER 12-17 00:16 → HO.S3 12-17 19:07
PROVIDERS: Family Medicine; Physician Assistant Medical; Registered Nurse Emergency; Admitting Provider Hospitalist; Emergency Provider Student in an Organized Health Care Education/Training Program; Visit Provider Nurse Practitioner Acute Care
DX: J10.81 Influenza due to other identified influenza virus with encephalopathy (principal); J96.01 Acute respiratory failure with hypoxia; N17.9 Acute kidney failure, unspecified; N39.0 Urinary tract infection, site not specified; J10.1 Influenza due to other identified influenza virus with other respiratory manifestations; N18.32 Chronic kidney disease, stage 3b; E78.5 Hyperlipidemia, unspecified; F39 Unspecified mood [affective] disorder; D50.9 Iron deficiency anemia, unspecified; I48.0 Paroxysmal atrial fibrillation; R31.29 Other microscopic hematuria; J45.20 Mild intermittent asthma, uncomplicated; Z20.822 Contact with and (suspected) exposure to COVID-19; Z79.01 Long term (current) use of anticoagulants; Z79.51 Long term (current) use of inhaled steroids; Z79.84 Long term (current) use of oral hypoglycemic drugs; Z79.899 Other long term (current) drug therapy
CPT/HCPCS: 0241U; 36415; 71046; 80048; 80053; 81001; 82550; 82947; 83540; 83605; 83735; 84484; 85025; 85027; 87040; 87086; 87651; 92526; 92610; 93005; 94640; 97162; 99285; J0696; J2359; J7120

== ENCOUNTER → 2024-12-16 13:44 | Outpatient (BNV) | payer MEDICARE, SELFPAY | PROVIDERS: Emergency Provider Student in an Organized Health Care Education/Training Program; Visit Provider Internal Medicine | DX: I44.0 Atrioventricular block, first degree (principal) | CPT/HCPCS: 93010 ==

== ENCOUNTER → 2024-12-16 13:44 | Outpatient (BNV) | payer MEDICARE, SELFPAY | PROVIDERS: Emergency Provider Student in an Organized Health Care Education/Training Program; Visit Provider Radiology Diagnostic Radiology | DX: R50.9 Fever, unspecified (principal) | CPT/HCPCS: 71046 ==

== ENCOUNTER → 2024-12-17 00:07 | Outpatient (BNV) | payer MEDICARE, SELFPAY | PROVIDERS: Admitting Provider Hospitalist; Emergency Provider Student in an Organized Health Care Education/Training Program; Visit Provider Nurse Practitioner Acute Care | DX: J10.1 Influenza due to other identified influenza virus with other respiratory manifestations (principal) | CPT/HCPCS: 99232; 99499 ==

== ENCOUNTER 2025-02-23 15:21 | Outpatient (REF) | payer MEDICARE, MEDICAID, SELFPAY ==
[2025-02-23 16:05] LABS: MANUAL DIFF FLAG NO
[2025-02-23 16:17] LABS: Basophils Percent Auto 0.5 % (0-2); Eosinophils Absolute Auto 0.5 X10*3/uL (0.0-0.4); Hemoglobin 12.8 g/dl (14.0-18.0); Imm Gran Abs Auto 0.03 X10*3/uL (0.00-0.03); Imm Gran Pct Auto 0.5 % (0.0-0.4); Lymphocytes Absolute Auto 1.5 X10*3/uL (1.2-4.9); Lymphocytes Percent Auto 23.5 % (20-40); Mean Corpuscular HGB Conc 32.8 g/dl (31.0-36.0); Mean Corpuscular Volume 97.5 fL (80.0-98.0); Mean Platelet Volume 10.3 fL (9.4-12.4); Monocytes Absolute Auto 0.7 X10*3/uL (0.1-1.2); Monocytes Percent Auto 11.1 % (2-11); Neutrophils Absolute Auto 3.8 x10*3/uL (2.0-8.3); Neutrophils Percent Auto 57.4 % (45-73); Platelet Count 249 X10*3/uL (160-400); Red Cell Distribution Width 12.8 % (11.0-16.0); White Blood Count 6.6 X10*3/uL (4.8-10.8)
[2025-02-23 16:23] LABS: Estimated Average Glucose 108 mg/dL; Hemoglobin A1C 121.4524 umol/L; Hemoglobin A1c % 5.4 % (<6.0); Total Hemoglobin (HGBA1C) 3436.5504 umol/L
[2025-02-23 17:05] LABS: Prostate Specific Antigen 3.09 ng/mL (<0.05-4.0)
[2025-02-23 17:11] LABS: Alanine Aminotransferase 17 U/L (0-40); Alanine Aminotransferase 21 U/L (0-40); Albumin Level 4.3 g/dL (3.5-5.0); Alkaline Phosphatase 74 U/L (39-117); Alkaline Phosphatase 75 U/L (39-117); Anion Gap 14 (12-20); Anion Gap 16 (12-20); Aspartate Amino Transferase 34 U/L (5-37); Aspartate Amino Transferase 36 U/L (5-37); Bilirubin Direct 0.1 mg/dL (0.0-0.5); Bilirubin Total 0.4 mg/dL (0.0-1.0); Blood Urea Nitrogen 26 mg/dL (9-16); Blood Urea Nitrogen 27 mg/dL (9-16); Calcium 9.5 mg/dL (8.4-10.2); Calcium 9.6 mg/dL (8.4-10.2); Carbon Dioxide 25 mmol/L (22-29); Carbon Dioxide 27 mmol/L (22-29); Chloride 105 mmol/L (96-108); Cholesterol 68 mg/dL (<200); Cholesterol 71 mg/dL (<200); Estimated Glomerular Filt Rate 40; Estimated Glomerular Filt Rate 41; Glucose Random 117 mg/dL (60-115); HDL Cholesterol 24 mg/dL (>40); HDL Cholesterol 25 mg/dL (>40); Iron 71 mcg/dL (45-160); LDL Cholesterol Calculated 17 mg/dL (<100); LDL Cholesterol Calculated 19 mg/dL (<100); Percent Iron Saturation 26 % (15-50); Potassium 4.8 mmol/L (3.3-5.1); Potassium 4.9 mmol/L (3.3-5.1); Sodium 141 mmol/L (135-145); Total Iron Binding Capacity 275 mcg/dL (228-428); Total Protein 7.1 g/dL (6.5-8.0); Triglycerides 138 mg/dL (<150); Unsaturated Iron Binding 204 ug/dL
[2025-02-23 17:19] LABS: Ferritin 31 ng/mL (20-250); Free T4 (Free Thyroxine) 1.22 ng/dL (0.71-1.85); Vitamin D 25-OH Total 36.2 ng/mL (>30)
[2025-02-23 17:23] LABS: Folate 19.4 ng/mL (> or = 4.0); Vitamin B12 276 pg/mL (200-900)
== END 2025-02-23 15:22 | disposition home or self-care (01) ==
LOC: HO.HHCL 15:21
PROVIDERS: Family Medicine; Internal Medicine; Nurse Practitioner Family; Visit Provider Registered Nurse
DX: Z00.00 Encounter for general adult medical examination without abnormal findings (principal); E11.22 Type 2 diabetes mellitus with diabetic chronic kidney disease; N18.30 Chronic kidney disease, stage 3 unspecified; I10 Essential (primary) hypertension; E78.49 Other hyperlipidemia; I48.0 Paroxysmal atrial fibrillation; J44.9 Chronic obstructive pulmonary disease, unspecified; M54.40 Lumbago with sciatica, unspecified side; G89.29 Other chronic pain; M25.561 Pain in right knee; M25.562 Pain in left knee; R25.1 Tremor, unspecified; R33.9 Retention of urine, unspecified; Z87.11 Personal history of peptic ulcer disease; Z87.891 Personal history of nicotine dependence; N40.0 Benign prostatic hyperplasia without lower urinary tract symptoms; Z12.5 Encounter for screening for malignant neoplasm of prostate
CPT/HCPCS: 36415; 80048; 80053; 80061; 80076; 82248; 82306; 82607; 82728; 82746; 83036; 83540; 84153; 84439; 84443; 85025

== ENCOUNTER 2025-05-27 14:42 | Outpatient (AMB) | payer MEDICARE, MEDICAID, SELFPAY ==
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
[2025-05-27 14:49] VITALS: BP 130/78; PULSE 55; O2SAT 93
--- OUTSIDE RECORDS SUMMARY | 2025-05-27 15:38 | XMS_ITS | Clinical Summary ---
Author Organization [facility] ity Address [address] [place] [address] Care Team Providers Care Manufacturing Applications Engineer Name Role Phone Unavailable Primary Care Provider [...] Vaccines (1 of 2) 1994 RSV Immunization Adult Patie nts (1 - 1-dose 75+ series) 2019 COVID-19 Vaccine (1 - 2023-2 5 season) 2024 Depression Screening 10/08/2024 Influenza Vaccine (#1) 2025 HIB Vaccines Aged Out No longer eligi [...] age to complete this topic Meningococcal B Vaccine Aged Out No l onger eligible based on patient's age to complete this topic RSV Immunization Patients Un sang 20 months Aged Out No longer eligible b ased on patient's age to complete this topic Varicella Vaccines Aged Out No longer eligible based on patient's age to complete this topic
--- OUTSIDE RECORDS SUMMARY | 2025-05-27 15:38 | XMS_ITS | Clinical Summary ---
Author Organization [employer] Address [address] [place] [address] [address] [place] [address] Care Team Providers Care Double Cut Sawyer Name Role Phone Christa Peng DO Primary Care Provider [phone] Allergies Active Allergy Reactions Criticality Noted Date Comments Aspirin 03/10/2024 Medications ipratropium-albute rol (Duo-Neb) 0.5-2.5 mg/3 mL nebulizer solutionIndication s:Chronic obstructive pulmonary disease, unspecified COPD type ([facility]) inhale 3 milliliter by nebulization route 4 times every day 180 mL 2 11/09/19 23 Active Blood Glucose Monitoring Suppl (FreeStyle Lite) w/Device kitIndications:Typ e 2 diabetes mellitus with stage 3 chronic kidney disease, without long-term current use of insulin, unspecified whether stage 3a or 3b CKD (CMS/HCC) 1 each 2 times daily. 1 kit 11/09/19 23 Active tamsulosin (Flomax) 0.4 MG 24 hr capsuleIndications :Benign prostatic hyperplasia with lower urinary tract symptoms, symptom details unspecified TAKE 1 TABLET BY MOUTH EVERY MORNING 90 capsule 1 12/23/19 23 Active Eliquis 5 MG tablet TAKE 1 TABLET BY MOUTH TWICE DAILY IN THE MORNING AND IN THE EVENING 05/29/20 23 Active Breo Ellipta 200-25 MCG/ACT aerosol powder INHALE 1 PUFF BY MOUTH EVERY DAY AT THE SAME TIME 60 each 11 07/18/20 24 Active acetaminophen (Tylenol 8 Hour) 650 MG ER tablet Take 1 tablet (650 mg) by mouth every 8 (eight) hours if needed for mild pain. Do not crush, chew, or split. 60 tablet 3 08/18/20 24 025 Active Diclofenac Sodium 1 % gel Apply 2 g topically if needed in the morning, at noon, in the evening, and at bedtime (pain). 150 g 3 08/18/20 24 Active sucralfate (Carafate) 1 g tabletIndications: Primary hypertension Take 1 tablet (1 g) by mouth before breakfast and before evening meal. 180 tablet 3 09/09/20 24 Active folic acid (Folvite) 1 MG tabletIndications: Iron deficiency TAKE 1 TABLET BY MOUTH EVERY MORNING 90 tablet 3 10/15/19 25 Active QUEtiapine (SEROquel) 100 MG tabletIndications: Psychiatric diagnosis TAKE 1 Tablet BY MOUTH AT BEDTIME 90 tablet 3 10/15/19 25 Active amiodarone (Pacerone) 200 MG tabletIndications: Elevated blood sugar TAKE 1 Tablet BY MOUTH EVERY MORNING 90 tablet 3 10/15/19 25 Active metoprolol succinate XL (Toprol-XL) 50 MG 24 hr tabletIndications: Primary hypertension TAKE 1 Tablet BY MOUTH EVERY MORNING 90 tablet 3 10/15/19 25 Active metFORMIN (Glucophage) 850 MG tabletIndications: Elevated blood sugar TAKE 1 Tablet BY MOUTH TWICE DAILY IN THE MORNING AND IN THE EVENING WITH MEALS 180 tablet 3 10/15/19 25 Active FeroSul 325 (65 Fe) MG tabletIndications: Iron deficiency TAKE 1 TABLET BY MOUTH EVERY MORNING 90 tablet 3 10/15/19 25 Active Multiple Vitamin (Multivitamin) tabletIndications: Iron deficiency TAKE 1 TABLET BY MOUTH EVERY MORNING WITH FOOD 90 tablet 3 10/15/19 25 Active atorvastatin (Lipitor) 40 MG tabletIndications: Other hyperlipidemia TAKE 1 TABLET BY MOUTH AT BEDTIME 90 tablet 1 12/25/19 25 Active melatonin 5 MG tabletIndications: Insomnia, unspecified type TAKE 1 TABLET BY MOUTH AT BEDTIME 30 tablet 5 12/25/19 25 Active Alcohol Swabs (Alcohol Prep) 70 % pads USE DIRECTED TWICE DAILY 100 each 11 01/01/20 25 Active Emollient (eucerin) lotionIndications: Dry skin dermatitis Apply topically if needed for dry skin. 240 mL 1 02/24/20 25 026 Active PARoxetine (Paxil) 10 MG tabletIndications: Psychiatric diagnosis TAKE 1 TABLET BY MOUTH AT BEDTIME 90 tablet 03/05/20 25 Active traZODone (Desyrel) 100 MG tabletIndications: Psychiatric diagnosis TAKE 1 TABLET BY MOUTH AT BEDTIME 30 tablet 5 03/27/20 25 Active Active Problems Problem Noted Date Diagnosed Date [...] by cardiology -cont eliquis BID advised notify [facility] if any GI bleed symptoms -cont amiodarone daily -f/u w cards as scheduled due Nov 2022 Hyperlipidemia 10/22/2012 Assessment & Plan (11/09/2022 9:46 AM EST): LDL at goal April 2021 -cont lipitor nightly -check lipids prior to next visit BPH (benign prostatic hyperplasia) 06/20/2012 Overview (11/09/2022): Overview Note: BPH (benign prostatic hyperpla #[id number]# EXT_ID: [id number] COPD (chronic obstructive pulmonary disease) Assessment & Plan (11/09/2022 9:47 AM EST): stable -cont breo daily -cont albuterol as needed -PFT s with moderate COPD Jul 2006 Depression [...] (11/09/2022): Overview Note: DVT (deep venous thrombosis) #546165# EXT_ID: [id number] Pneumonia 03/15/2018 11/09/2022 Overview (11/09/2022): Overview Note: Pneumonia #[id number]# EXT_ID: [id number] Hematemesis with nausea 02/10/2018 02/0 11/2022 Overview (11/09/2022): Added automatically from request for surgery [id number] Acute deep vein thrombosis ( DVT) of distal vein of right lower extremity 01/31/2018 11/09/2022 Acute respiratory failure with hypoxia 01/07/2018 11/09/2022 Sepsis 01/07/2018 11/09/2022 Abscess of thumbnail of left hand 10/11/2012 11/09/2022 Osteoarthritis of knee 06/20/201211/09 Chronic kidney disease 03/22/201211/09 DM2 (diabetes mellitus, type 2) 03/22/2012 11/09/2022 Overview (11/09/2022): Overview Note: Diabetes type 2, controlled #959703# EXT_ID: [id number] Pure hypercholesterolemia 03/22/2012 Sleep apnea 03/22/2012 11/09/2022 Overview (11/09/2022): Overview Note: Sleep apnea #517563# EXT_ID: [id number] Encounters Date Type Department Care Team Description 03/26/2025 Refill [facility] [address] [place] [address] Christa Peng DO Psychiatric diagnosis 03/03/2025 Refill [facility] [address] [place] [address] Aimee Walker MD Psychiatric diagnosis 02/26/2025 Telephone [facility] [address] [place] [address] Christa Peng DO lab letter 02/25/2025 Results Follow-Up [facility] [address] [place] [address] [place], Monique, TELEPHONE SWITCHBOARD OPERATOR POCT HGB A1C, POCT Glucose, Lipid Panel, Standard, Comprehensive Metabolic Panel from Last 3 Months Immunizations Immunization Administration Dates Next Due Hep B, Adolescent or Pediatric 02/07/2011,2007,01/23/2008 Influenza High-dose Quadriva lent Preservative Free 08/18/2020 Influenza injectable quadriv alent IIV4 with preservative 11/22/2017,07/18/2016 Influenza injectable quadriv alent preservative free 11/09/2022,11/03/2021,09/15/2015 Influenza, High Dose Seasona l, Preservative Free 06/25/2019 Influenza, IIV3, injectable 07/03/2014, 1 Influenza, Split (incl. nette fied surface antigen) 07/09/2013,06/20/2012 Moderna Covid-19 Vaccine 6+ Bivalent 11/09/2022 Pfizer Covid-19 Vaccine 12+ 02/23/2025, 4 Pneumococcal Conjugate PCV 13 04/21/2021, 018 Pneumococcal Polysaccharide PPSV23 11/09/2022, RSV Bivalent 04/02/2025 TD (adult), 2 Lf tetanus tox oid, preservative free, adsorbed 11/09/2022 Tdap 06/20/2012 Zoster, Recombinant 04/02/2025 Social History Tobacco Use Types Packs/Day Years [...] Date Recorded Patient Health Questionnaire-9 Score 0 02/23/2025 Patient Health Questionnaire-9 Score 0 02/23/2025 Last PHQ-9: Questionnaire Data Not on file 0 02/23/2025 Housing Stability Answer Date Recorded What is [...] Date Recorded Patient Health Questionnaire-2 Score 0 02/23/2025 Internet Access Answer Date Recorded Internet Access Q1 Yes 02/23/2025 Internet Access Q2 Not on file 02/23/2025 Sex and Gender Information Value Date Recorded Sex Assigned at Male 08/07/2022 10:18 AM EDT Legal Sex Male 10:18 AM EDT Gender Identity Male 08/07/2022 10:18 AM EDT Sexual Orientation Straight 08/07/2022 10 :18 AM EDT Last Filed Vital Signs Vital Sign Reading Time Taken Comments Blood Pressure 118/84 02/23/2025 2:10 PM EDT Pulse 88 02/23/2025 2:10 PM EDT Temperature 36.8 C (98.2 F) 02/23/2025 2:10 PM EDT Respiratory Rate 20 02/23/2025 2:10 PM EDT Oxygen Saturation 96% 03/10/2024 2:22 PM EDT Inhaled Oxygen Concentration - - Weight 108 kg (238 lb) 02/23/2025 2:10 PM EDT Height 182.9 cm (6') 02/23/2025 2:10 PM EDT Body Mass Index 32.28 02/23/2025 2:10 PM EDT Plan of Treatment Upcoming Encounters Date Type Department Care Team (Late st Contact Info) Description 06/04/2025 11:30 AM EDT Nurse Only [facility] [address] [place] [id number] Health Maintenance Due Date Last Done Comments Eye Exam 1955 Alcohol/Substance Use Screening 1957 Zoster Vaccines (2 of 2) 05/28/2025 04/02/2025 Influenza Vaccine (#1) 2025 , 11/03/2021, 08/18/2020, Additional history exists COVID-19 Vaccine ( season) 2025 02/23/2025, 03/10/2024, 11/09/2022, Additional history exists Diabetes: Hemoglobin A1C 08/26/2025 025, 02/23/2025, 03/10/2024, Additional history exists Depression Screening 02/23/2026 02/23/2025, 02/24/20 Diabetes: Foot Exam 02/23/2026 02/23/2025, 02/23/2025, 02/23/2025, Additional history exists Lipid Panel 02/23/2026 02/23/2025, 02/05, 11/09/2022, Additional history exists SDOH Screening 02/23/2026 02/23/2025 Tobacco Screening 02/23/2026 02/23/2025 DTaP/Tdap/Td Vaccines (3 - Td or Tdap) 11/09/2032 11/09/2022, 06/20/2012 Hepatitis B Vaccines Aged Out 02/07/2011, 02/25/2008, 01/23/2008 No longer eligible based on patient's age to complete this topic Pneumococcal Vaccine: 50+ Years Completed 11/09/2022, 04/21/2021, 07/24/2018, Additional history exists RSV Patients and Patients Aged 60 years or older Completed 04/02/2025 HIB Vaccines Aged Out No longer eligi [...] Procedure Name Priority Date/Time Associated Diagnosis Comments LIPID PANEL, STANDARD Routine 02/23/2025 3:26 PM EDT Encounter for preventive health examination POCT GLYCATED HEMOGLOBIN, TOTAL Routine 02/23/2025 2:21 PM EDT Type 2 diabetes mellitus with stage 3 chronic kidney disease, without long-term current use of insulin, unspecified whether stage 3a or 3b CKD (CMS/HCC) from Last 3 Months or Most Recently Relevant to Health Maintenance Results * (ABNORMAL) Lipid Panel, Standard (02/23/2025 3:26 PM EDT) Triglycerides 138 <150 mg/dL [facility] Comment:Desirable Triglyceri de: less than 150 mg/dLBorderline High Triglyceride 150-199 mg/dLHigh Triglyceride: 200-499 mg/dLVery High Triglyceride: greater than or equal to 5OO mg/dL Cholesterol 68 <200 mg/dL [facility] Comment:Desirable Cholestero l: less than 200 mg/dLBorderline High Cholesterol: 200-239 mg/dLHigh Cholesterol: greater than 239 mg/dL LDL Cholesterol Calculated 17 <100 mg/dL [facility] Comment:Desirable LDL: less than 100 mg/dLNear Optimal/Above Optimal LDL: 110- 129 mg/dLBorderline High LDL: 130-159 mg/dLHigh LDL: 160-189 mg/dLVery High LDL: greater than or equal to 190 mg/dL HDL Cholesterol 24(L) >40 mg/dL [facility] Comment:Desirable HDL: great er than 40 mg/dL Note: This HDL assay may give artificially low results in patients with liver disease. Blood Venous blood specimen / Unknown 02/23/2025 3:26 PM EDT 02/23/2025 4:04 PM EDT us Aimee Shukla MD LAB BLOOD ORDERABLES Final Result [facility] [address] [place] [address] [phone] * POCT HGB A1C (02/23/2025 2:21 PM EDT) Hemoglobin A1C 5.4 4.0 - 6.0 % Blood 02/23/2025 2:21 PM EDT [facility] TELEPHONE SWITCHBOARD OPERATOR POINT OF CARE TEST ENTER/EDIT ORDERABLES Final Result from Last 3 Months or Most Recently Relevant to Health Maintenance Insurance MEDICARE [facility] Care Teams Double Cut Sawyer Relationship Specialty Start Date End Date Christa Peng DO [address] [place] [phone] PCP - General Family Medicine 03/19/20
--- OUTSIDE RECORDS SUMMARY | 2025-05-27 15:38 | XMS_ITS | Clinical Summary ---
Author Organization [facility] Address [address] [phone] Phone Care Team Providers Care Millroom Supervisor Name Role Phone Monique Nichols Primary Care Provider [phone] Allergies Active Allergy Reactions Criticality Noted Date Comments Aspirin 03/10/2024 Active Problems Problem Noted Date Diagnosed Date Type 2 diabetes mellitus 03/15/2018 Overview (04/07/2025): Overview Note: Diabetes type 2, controlled #464465# EXT_ID: [id number] Hyperlipidemia 10/22/2012 Overview (04/07/2025): Overview Note: Hyperlipidemia #569042# EXT_ID: [id number] Microalbuminuria 06/20/2012 Essential hypertension 03/22/2012 Overview (04/07/2025): Overview Note: Hypertension #781858# EXT_ID: [id number] Immunizations Immunization Administration Dates Next Due Hep B, Adolescent or Pediatric 02/07/2011,2007,01/23/2008 Influenza Split 07/09/2013,06/20/2012 Influenza Split High Dose Pr eservative Free IM 06/25/2019 Influenza, Quadrivalent, Preservative Free 11/09,11/03/2021,09/15/2015 Influenza, Quadrivalent, With Preservative 11/22,07/18/2016 Pneumococcal Conjugate 13-Valent 04/21/2021,07/08 Pneumococcal Polysaccharide 11/09/2022, 8 Shingrix 04/02/2025 Td 11/09/2022 Tdap 06/20/2012 Family History Relation Status Comments Father Mother Social History Tobacco Use Types Packs/Day Years Used Date Smoking Tobacco: Never Assessed Sex and Gender Information Value Date Recorded Sex Assigned at Not on file Legal Sex Male 5:22 PM EST Gender Identity Not on file Sexual Orientation Not on file Plan of Treatment Upcoming Encounters Date Type Department Care Team ([facility] st Contact Info) Description 06/04/2025 3:00 PM EDT Office Visit [facility] [address] [phone] José Miguel Aguirre MD [address] [phone] Health Maintenance Due Date Last Done Comments Diabetes: Ophthalmology Exam 03/03/2025 Diabetes: Pedal Pulse Checked 03/03/2025 Diabetes: Sensory Foot Exam 03/03/2025 Diabetes: Visual Foot Exam 03/03/2025 Diabetes: Hemoglobin A1C 05/26/2025 025, 02/23/2025, 03/29/2018 Influenza Vaccine (#1) 2025 3, 11/03/2021, 06/25/2019, Additional history exists Hepatitis B Vaccine Aged Out 02/07/2011, 02/25/2008, 01/23/2008 No longer eligible based on patient's age to complete this topic Pneumococcal Vaccine: 50+ Years Completed 11/09/2022, 04/21/2021, 07/24/2018, Additional history exists Pneumococcal Vaccine: Peds (0 to 5 Years) and At-Risk Patients (6 to 49 Years) Discontinued 11/09/2022, 04/21/2021, 07/24/2018, Additional history exists Insurance Medicare Medicaid [place] Care Teams Millroom Supervisor Relationship Specialty Start Date End Date [facility] [address] [place] [address] PCP - General 02/27/25
--- OUTSIDE RECORDS SUMMARY | 2025-05-27 15:38 | XMS_ITS | Clinical Summary ---
Author Organization [facility] Address [address] [place] [address] Care Team Providers Care Quilting Machine Helper Name Role Phone Unavailable Primary Care Provider [...] Depression 07/05/2018 Overview (12/04/2019): Overview Note: Depression #908455# EXT_ID: [id number] Atrial fibrillation 07/05/2018 Overview (12/04/2019): Overview Note: Atrial fibrillation #902889# EXT_ID: [id number] Diabetes type 2, controlled 03/15/2018 Overview (12/04/2019): Overview Note: Diabetes type 2, controlled #383682# EXT_ID: [id number] Hyperlipidemia 03/15/2018 Overview (12/04/2019): Overview Note: Hyperlipidemia #528173# EXT_ID: [id number] Sleep apnea 03/15/2018 Overview (12/04/2019): Overview Note: Sleep apnea #498866# EXT_ID: [id number] Hypertension 03/15/2018 Overview (12/04/2019): Overview Note: Hypertension #627040# EXT_ID: [id number] DVT (deep venous thrombosis) 03/15/2018 Overview (12/04/2019): Overview Note: DVT (deep venous thrombosis) #091236# EXT_ID: [id number] Pneumonia 03/15/2018 Overview (12/04/2019): Overview Note: Pneumonia #377044# EXT_ID: [id number] BPH (benign prostatic hyperplasia) 03/15/2018 Overview (12/04/2019): Overview Note: BPH (benign prostatic hyperpla #409025# EXT_ID: [id number] COPD (chronic obstructive pulmonary disease) 05/2018 Overview (12/04/2019): Overview Note: COPD (chronic obstructive pulm #221976# EXT_ID: [id number] Immunizations Immunization Administration Dates Next Due PNEUMOCOCCAL CONJUGATE PCV [...] 105 02/17/2019 2:44 PM EDT Temperature 36.8 C (98.26326142801003 F) 09/25/2018 7:04 PM EST Respiratory Rate 16 05/10/2018 5:37 PM EDT Oxygen Saturation 96% 02/17/2019 2:44 PM EDT Inhaled Oxygen Concentration - - Weight 123.8 kg (273 lb) 02/17/2019 2:44 PM EDT Height 170.2 cm (5' 7 ) 02/17/2019 2:44 PM EDT Body Mass Index 42.76 02/17/2019 2:44 PM EDT Plan of Treatment Not on file
== END 2025-05-27 15:27 | disposition home or self-care (01) ==
LOC: HO.HPS 14:42
PROVIDERS: PCP Registered Nurse; Referring Provider Registered Nurse; Visit Provider Internal Medicine
DX: J44.9 Chronic obstructive pulmonary disease, unspecified (principal); G47.33 Obstructive sleep apnea (adult) (pediatric)
CPT/HCPCS: 99204

== ENCOUNTER → 2025-05-27 14:42 | Outpatient (BNVA) | payer MEDICARE, MEDICAID, SELFPAY | PROVIDERS: PCP Registered Nurse; Referring Provider Registered Nurse; Visit Provider Internal Medicine | DX: J44.9 Chronic obstructive pulmonary disease, unspecified (principal); G47.33 Obstructive sleep apnea (adult) (pediatric); Z87.891 Personal history of nicotine dependence | CPT/HCPCS: 99202 ==

== ENCOUNTER 2025-07-09 13:56 | Outpatient (AMB) | payer MEDICARE, MEDICAID, SELFPAY ==
--- NOTE | 2025-07-09 14:00 | MHC.OFFVIS ---
Vital Signs 07/09/25 14:01 Height 5 ft 7 in BP 96/58 L Blood Pressure Location Rt brachial Position Sitting Pulse 58 Pulse Source Monitor Intake Visit Reasons: Overdue Follow up Mailing Specialist Required: No Optical Worker: Optical Worker Present Allergies acetaminophen (Excedrin Extra Strength) Allergy (Unknown, Verified 07/09/25 14:03) Unknown caffeine (Excedrin Extra Strength) Allergy (Unknown, Verified 07/09/25 14:03) Unknown aspirin (ASPIRIN) Adverse Reaction (Unknown, Verified 07/09/25 14:03) UNKNOWN Medication List - Last Reconciled 07/09/25 by Genny Patiño, JOB SETTER-C albuterol sulfate 90 mcg/actuation 2 inhalations inhalation Q6H PRN amiodarone 200 mg PO DAILY apixaban (Eliquis) 5 mg PO BID atorvastatin 40 mg PO DAILY ferrous sulfate 325 mg PO DAILY fluticasone furoate-vilanterol 200-25 mcg/dose (Breo Ellipta) 1 ea inhalation DAILY folic acid 1 mg PO DAILY melatonin 5 mg PO BEDTIME metformin 850 mg PO BID metoprolol succinate ER 50 mg PO DAILY multivitamin 1 tab PO DAILY paroxetine HCl 10 mg PO BEDTIME quetiapine 100 mg PO BEDTIME sucralfate 1 g PO BID@1200,2100 trazodone 100 mg PO BEDTIME HPI HPI Overdue Follow up: Details: Wili is an 79 year old male with past medical history of COPD, sleep apnea, diabetes, knee arthritis, paroxysmal atrial fibrillation who presents for follow-up. His last prior visit was 07/05/2023. Today he reports that he has been getting left chest discomfort for the last 5 months. He is very vague in describing this symptom. It seems to occur at rest and with activity. It is causing him concern as he says it is newer for him. He is denying any recent changes to his breathing. He does get short of breath with exertion. No PND, orthopnea or edema. Occasional heart palpitations. No lightheadedness, presyncope, syncope, falls. He ambulates only short distances and is limited by knee arthritis. He is currently sitting in a wheelchair. He has been taking all meds as directed. No bleeding issues reported. Granddaughter is present. PENDING SALE TO [facility] Medical History (Updated 07/09/25 @ 17:51 by Genny Patiño, JOB SETTER-C) RITCHIE (obstructive sleep apnea) COPD (chronic obstructive pulmonary disease) Paroxysmal atrial fibrillation Low back pain Fatigue Arthritis Asthma Diabetes Social History Household Members: Family Housing: Apartment Do you presently have visiting nurse or other home services: No Alcohol intake: current Alcohol intake frequency: does not drink Comment: family at bedside Patient Tobacco Use Status: Never used Tobacco e-Cigarette/Vaping Use: Never Used Second Hand Smoke Exposure: No service: No Review of Systems Const All systems reviewed & are unremarkable except as noted in HPI and below ENT Denies dizziness Card Reports chest pain, Reports chest pain at rest, Reports chest pain with activity, Denies rapid heart rate, Denies pedal edema, Denies edema, Denies leg edema, Denies lightheadedness, Reports palpitations, Denies dyspnea, Denies dyspnea on exertion and Denies orthopnea Resp Denies cough, Denies dyspnea and Denies dyspnea on exertion GI Denies hematochezia and Denies change in stool character Musc Reports abnormal gait, Denies limited range of motion, Denies muscle cramps, Denies muscle weakness, Denies numbness, Denies radiating pain into limb, Denies stiffness and Denies tingling Neuro Reports abnormal gait, Denies dizziness, Denies numbness and Denies tingling Endo Reports palpitations Physical Exam Vital Signs: Last Vital Signs Pulse 58 07/09/25 14:01 BP 96/58 L 07/09/25 14:01 Const Other: Elderly male sitting in a wheelchair General: cooperative, comfortable and no acute distress Orientation/consciousness: patient oriented x3 Neck Neck: Yes normal visual inspection Resp Effort & Inspection: normal respiratory effort Auscultation: clear to auscultation bilaterally, rales (Fine rales each base), no rhonchi and no wheezes Cardio Rate: regular rate Rhythm: abnormal rhythm Heart sounds: S1 normal heart sound present, S2 normal heart sound present, no gallops, no murmurs and no rubs Neuro General: patient oriented x3 Extrem General: Yes normal to inspection, No no pedal edema and No calf tenderness Psych Appearance: grossly normal Mental Status: mental status grossly normal Speech and movement: Normal speech and movement present Office Procedures EKG Details: Today, read by me, sinus bradycardia with first-degree AV block, can not exclude prior anterior infarct, artifact on tracing V5 V6, rate 58, QTC 410 milliseconds [id number], Complete Assessment & Plan Assessment & Plan (1) Paroxysmal atrial fibrillation: Code(s): I48.0 - Paroxysmal atrial fibrillation Category: Medical Plan: History of paroxysmal atrial fibrillation that is treated with rhythm control using amiodarone 200 mg daily and metoprolol XL 50 mg daily. He is on Eliquis for anticoagulation. Labs 02/23/2025 showed hematocrit 39, AST 36, ALT 21, TSH 3.4. Chest x-ray done 12/16/2024 showed no acute disease, limited study. He does have rales in his bases which could be atelectasis. Will repeat chest x-ray. No med changes made at this time. (2) Chest discomfort: Code(s): R07.89 - Other chest pain Category: Medical Plan: Vague reports of left-sided chest discomfort, new in the last 5 months. EKG today shows no acute ST or T-wave abnormality, though some artifact is present. Last echo 04/19/2022 showed normal EF, mild LVH. Will check a pharmacological nuclear stress test to evaluate for any ischemia. Continue metoprolol, continue atorvastatin. 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 (4) On amiodarone therapy: Code(s): Z79.899 - Other group home (current) drug therapy Category: Medical Plan: On amiodarone 200 mg daily for at least the last 3 years. Monitoring for toxicity as above. Plan Time spent on chart review, documentation, interview and assessment. Orders: Orders CA lexiscan stress w johan Today E11.9 - Type 2 diabetes mellitus without complications, I48.0 - Paroxysmal atrial fibrillation, R07.89 - Other chest pain NM cardiolite stress test Today E11.9 - Type 2 diabetes mellitus without complications, I48.0 - Paroxysmal atrial fibrillation, R07.89 - Other chest pain XR chest 2V Today Z79.899 - Other buttermaker continuous churn (current) drug therapy Coding Level of Care Code Est Pt Level 4 (18710) Complex EM visit Add On G2211 Diagnoses Paroxysmal atrial fibrillation I48.0 Chest discomfort R07.89 Chronic anticoagulation Z79.01 On amiodarone therapy Z79.899 CPT Codes EKG - CPT: [id number]-[id number], Complete ([id number]) Time Spent (min) 36
[2025-07-09 14:01] VITALS: BP 96/58; PULSE 58
--- OUTSIDE RECORDS SUMMARY | 2025-07-09 15:35 | XMS_ITS | Encounter Summary ---
Author Organization [employer] Address [address] [place] [address] [address] [place] [address] Care Team Providers Care Mineral Engineer Name Role Phone Christa Peng DO Primary Care Provider + [phone] Encounter Details Date Type Department Care Team ([facility] st Contact Info) Description 11/07/2022 Orders Only [facility] MED & PEDS [address] [place] [address] Christa Hamomnd LPN Social History Tobacco Use Types Packs/Day [...] AM EST documented as of this encounter Functional Status * Over the past 2 weeks, how often have you been bothered by any of the following problems? Question Answer Date of Assessment Author Little interest or pleasure in doing things Not at all 11/09/2022 9:24 AM EST Bushra Gallardo MA Feeling down, depressed, or hopeless Not at all 11/09/2022 9:24 AM Bushra Cronin MA Patient Health Questionnaire-2 Score 0 11/09/2022 9:24 AM Latia Cronin MA documented as of this encounter Plan of Treatment Not on file documented as of this encounter Visit Diagnoses Not on filedocumented in this encounter Care Teams Mineral Engineer Relationship Specialty Start Date End Date Christa Peng DO [address] [place] [address] [place] [address] PCP - General Family Medicine 03/19/20 documented as of this encounter
--- OUTSIDE RECORDS SUMMARY | 2025-07-09 15:35 | XMS_ITS | Clinical Summary ---
Author Organization [employer] Address [address] [place] [address] [address] [place] [address] Care Team Providers Care Library Information Technician Name Role Phone Christa Peng DO Primary Care Provider + [phone] Allergies Active Allergy Reactions Criticality Noted Date Comments Aspirin 03/10/2024 Medications ipratropium-albut vega (Duo-Neb) 0.5-2.5 mg/3 mL nebulizer solutionIndicatio ns:Chronic obstructive pulmonary disease, unspecified COPD type (CMS/HCC) (HCC) inhale 3 milliliter by nebulization route 4 times every day 180 mL 2 023 Active Blood Glucose Monitoring Suppl (FreeStyle Lite) w/Device kitIndications: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 1 kit 023 Active tamsulosin (Flomax) 0.4 MG 24 hr capsuleIndication s:Benign prostatic hyperplasia with lower urinary tract symptoms, symptom details unspecified TAKE 1 TABLET BY MOUTH EVERY MORNING 90 capsule 1 023 Active Eliquis 5 MG tablet TAKE 1 TABLET BY MOUTH TWICE DAILY IN THE MORNING AND IN THE EVENING 023 Active Breo Ellipta 200-25 MCG/ACT aerosol powder [...] evening meal. 180 tablet 3 024 Active folic acid (Folvite) 1 MG [...] EVERY MORNING WITH FOOD 90 tablet 3 025 Active Alcohol Swabs (Alcohol Prep) 70 % pads USE DIRECTED TWICE DAILY 100 each 11 025 Active Emollient (eucerin) lotionIndications :Dry skin dermatitis Apply topically if needed for dry skin. 240 mL 1 025 2025 Active traZODone (Desyrel) 100 MG tabletIndications :Psychiatric diagnosis TAKE 1 TABLET BY MOUTH AT BEDTIME 30 tablet 5 025 Active PARoxetine (Paxil) 10 MG tabletIndications :Psychiatric diagnosis Take 1 tablet (10 mg) by mouth at bedtime. 90 tablet 025 Active atorvastatin (Lipitor) 40 MG tabletIndications :Other hyperlipidemia TAKE 1 TABLET BY MOUTH AT BEDTIME 90 tablet 1 025 Active melatonin 5 MG tabletIndications :Insomnia, unspecified type TAKE 1 TABLET BY MOUTH AT BEDTIME 30 tablet 5 025 Active atorvastatin (Lipitor) 40 MG tabletIndications :Other hyperlipidemia Take 1 tablet (40 mg) by mouth at bedtime. 90 tablet 1 025 Active melatonin 5 MG tabletIndications :Insomnia, unspecified type Take 1 tablet (5 mg) by mouth at bedtime. 30 tablet 5 025 Active atorvastatin (Lipitor) 40 MG tabletIndications :Other hyperlipidemia TAKE 1 TABLET BY MOUTH AT BEDTIME 90 tablet 1 025 2024 Discontinued(R eorder (will not trigger notification to Pharmacy)) melatonin 5 MG tabletIndications :Insomnia, unspecified type TAKE 1 TABLET BY MOUTH AT BEDTIME 30 tablet 5 025 2024 Discontinued(R eorder (will not trigger notification to Pharmacy)) Active Problems Problem Noted Date Diagnosed Date [...] -foot exam next visit Chronic kidney disease (CKD) , stage III (moderate) ([facility]) 11/09/2022 Assessment & Plan (11/09/2022 9:49 AM [...] of pulmonary embolism 02/02/2018 Paroxysmal atrial fibrillation ([facility]/HCC) 018 Assessment & Plan (11/09/2022 9:47 AM EST): Anticoagulation restarted by cardiology -cont eliquis BID advised notify [facility] if any GI bleed symptoms -cont amiodarone daily -f/u w cards as scheduled due Nov 2022 Hyperlipidemia 10/22/2012 Assessment & Plan (11/09/2022 9:46 AM EST): LDL at goal April 2021 -cont lipitor nightly -check lipids prior to next visit BPH (benign prostatic hyperplasia) 06/20/2012 Overview (11/09/2022): Overview Note: BPH (benign prostatic hyperpla #[id number]# EXT_ID: [id number] COPD (chronic obstructive pulmonary disease) Assessment & [...] (11/09/2022): Overview Note: DVT (deep venous thrombosis) #[id number]# EXT_ID: [id number] Pneumonia 03/15/2018 11/09/2022 Overview (11/09/2022): Overview Note: Pneumonia #[id number]# EXT_ID: [id number] Hematemesis with nausea 02/10/2018 02/0 11/2022 Overview (11/09/2022): Added automatically from request for surgery [id number] Acute deep vein thrombosis ( DVT) of distal vein of right lower extremity 01/31/2018 11/09/2022 Acute respiratory failure wi th hypoxia ([facility]) 01/07/2018 11/09/2022 Sepsis ([facility]) 01/07/2018 11/09/2022 Abscess of thumbnail of left hand 10/11/2012 11/09/2022 Osteoarthritis of knee 06/20/201211/09 Chronic kidney disease 03/22/201211/09 DM2 (diabetes mellitus, type 2) 03/22/2012 11/09/2022 Overview (11/09/2022): Overview Note: Diabetes type 2, controlled #752378# EXT_ID: [id number] Pure hypercholesterolemia 03/22/2012 Sleep apnea 03/22/2012 11/09/2022 Overview (11/09/2022): Overview Note: Sleep apnea #[id number]# EXT_ID: [id number] Encounters Date Type Department Care Team Description 06/30/2025 Refill [facility] MED[facility]INE [address] [place] [address] Christa Peng, Other hyperlipidemia; Insomnia, unspecified type 06/28/2025 Refill [facility] [address] [place] [address] Christa Peng, Other hyperlipidemia; Insomnia, unspecified type 06/02/2025 Refill [facility] [address] [place] [address] Christa Peng, Psychiatric diagnosis from Last 3 Months Immunizations Immunization Administration [...] 02/23/2025 2:10 PM EDT Plan of Treatment Health Maintenance [...] unspecified whether stage 3a or 3b CKD ([facility]) from Last 3 Months or Most Recently Relevant to Health Maintenance Results * (ABNORMAL) Lipid Panel, Standard (02/23/2025 3:26 PM EDT) Triglycerides 138 <150 mg/dL [facility] Comment:Desirable Triglyceri de: less than 150 mg/dLBorderline High Triglyceride 150-199 mg/dLHigh Triglyceride: 200-499 mg/dLVery High Triglyceride: greater than or equal to 5OO mg/dL Cholesterol 68 <200 mg/dL [facility] Comment:Desirable Cholestero l: less than 200 mg/dLBorderline High Cholesterol: 200-239 mg/dLHigh Cholesterol: greater than 239 mg/dL LDL Cholesterol Calculated 17 <100 mg/dL [facility] Comment:Desirable LDL: less than 100 mg/dLNear Optimal/Above Optimal LDL: 110- 129 mg/dLBorderline High LDL: 130-159 mg/dLHigh LDL: 160-189 mg/dLVery High LDL: greater than or equal to 190 mg/dL HDL Cholesterol 24(L) >40 mg/dL [facility] Comment:Desirable HDL: great er than 40 mg/dL Note: This HDL assay may give artificially low results in patients with liver disease. Blood Venous blood specimen / Unknown 02/23/2025 3:26 PM EDT 02/23/2025 4:04 PM EDT Aimee Shukla MD LAB BLOOD ORDERABLES Final Result [facility] [address] [place] [address] [phone] * POCT HGB A1C (02/23/2025 2:21 PM EDT) Hemoglobin A1C 5.4 4.0 - 6.0 % Blood 02/23/2025 2:21 PM EDT [facility] [employer] POINT OF CARE TEST ENTER/EDIT ORDERABLES Final Result from Last 3 Months or Most Recently Relevant to Health Maintenance Insurance MEDICARE [facility] STANDARD Care Teams Library Information Technician Relationship Specialty Start Date End Date Christa Peng DO [address] [place] [address] PCP - General Family Medicine 03/19/20
--- OUTSIDE RECORDS SUMMARY | 2025-07-09 15:35 | XMS_ITS | Encounter Summary ---
Author Organization [employer] Address [address] [place] [address] [address] [place] [address] Care Team Providers Care Client Services Administrator Name Role Phone Christa Peng DO Primary Care Provider [phone] Encounter Details Date Type Department Care Team (Late st Contact Info) Description 12/22/2022 Orders Only [facility] CH[facility] MED & PEDS [address] [place] [address] Christa Hammond LPN Social History Tobacco Use [...] on filedocumented in this encounter Care Teams Client Services Administrator Relationship Specialty Start Date End Date Christa Peng DO [address] [place] [address] PCP - General Family Medicine 03/19/20 documented as of this encounter
--- OUTSIDE RECORDS SUMMARY | 2025-07-09 15:35 | XMS_ITS | Encounter Summary ---
Author Organization [employer] Address [address] [place] [address] Care Team Providers Care Glost Kiln Operator Name Role Phone Christa ePng DO Primary Care Provider [phone] Reason for Visit * Reason Onset Date Comments Forms/questionnaires 11/09/2022 Encounter Details Date Type Department Care Team ([facility] st Contact Info) Description 11/09/2022 Telephone [facility] MEDICINE [address] [place], [place] [phone] Christa Peng DO [address] [place], [place] [phone] Forms/questionnaires Social History Tobacco Use Types Packs/Day [...] things Not at all 11/09/2022 9:24 AM Bushra Cronin MA Feeling down, depressed, or hopeless Not at all 11/09/2022 9:24 AM Bushra Cronin MA Patient Health Questionnaire-2 Score 0 11/09/2022 9:24 AM EST Latia Gallardo MA documented as of this encounter Miscellaneous Notes [...] - 11/09/2022 3:51 PM EST Tc from [facility] stated pt need a Pa for Lidocaine patches. Also [facility] stated pt need a Med b form for Ipra-albuterol for nebulizer machine. PCP DR. Peng documented in this encounter Plan of Treatment Not on file documented as of this encounter Visit Diagnoses Not on filedocumented in this encounter Care Teams Glost Kiln Operator Relationship Specialty Start Date End Date Christa Peng DO [address] [place] [address] PCP - General Family Medicine 03/19/20 documented as of this encounter
--- OUTSIDE RECORDS SUMMARY | 2025-07-09 15:35 | XMS_ITS | Clinical Summary ---
Author Organization [facility] Address [address] [place] [address] Care Team Providers Care Snow Groomer Name Role Phone Unavailable Primary Care Provider [...] Depression 07/05/2018 Overview (12/04/2019): Overview Note: Depression #[id number]# EXT_ID: [id number] Atrial fibrillation 07/05/2018 Overview (12/04/2019): Overview Note: Atrial fibrillation #040652# EXT_ID: [id number] Diabetes type 2, controlled 03/15/2018 Overview (12/04/2019): Overview Note: Diabetes type 2, controlled #624308# EXT_ID: [id number] Hyperlipidemia 03/15/2018 Overview (12/04/2019): Overview Note: Hyperlipidemia #841079# EXT_ID: [id number] Sleep apnea 03/15/2018 Overview (12/04/2019): Overview Note: Sleep apnea #968805# EXT_ID: [id number] Hypertension 03/15/2018 Overview (12/04/2019): Overview Note: Hypertension #789359# EXT_ID: [id number] DVT (deep venous thrombosis) 03/15/2018 Overview (12/04/2019): Overview Note: DVT (deep venous thrombosis) #162433# EXT_ID: [id number] Pneumonia 03/15/2018 Overview (12/04/2019): Overview Note: Pneumonia #801509# EXT_ID: [id number] BPH (benign prostatic hyperplasia) 03/15/2018 Overview (12/04/2019): Overview Note: BPH (benign prostatic hyperpla #558072# EXT_ID: [id number] COPD (chronic obstructive pulmonary disease) 05/2018 Overview (12/04/2019): Overview Note: COPD (chronic obstructive pulm #393968# EXT_ID: [id number] Immunizations Immunization Administration Dates Next Due PNEUMOCOCCAL [...] 02/17/2019 2:44 PM EDT Temperature 36.8 C ([id number] F) 09/25/2018 7:04 PM EST Respiratory Rate [...]
--- OUTSIDE RECORDS SUMMARY | 2025-07-09 15:35 | XMS_ITS | Clinical Summary ---
Author Organization [employer] [facility] Address [address] [place] [address] Care Team Providers Care Batch Roller Operator Name Role Phone Unavailable Primary Care [...] nts (1 - 1-dose 75+ series) 2019 Depression Screening 10/08/2024 COVID-19 Vaccine (1 - 2023-2 5 season) 2025 Influenza Vaccine (#1) 2025 HIB Vaccines Aged [...]
--- OUTSIDE RECORDS SUMMARY | 2025-07-09 15:35 | XMS_ITS | Encounter Summary ---
Author Organization [employer] Address [address] [place] [address] Care Team Providers Care House Steward/Stewardess Name Role Phone Christa Peng DO Primary Care Provider [phone] Reason for Visit * Reason Onset Date Comments requesting call back 09/27/2022 Encounter Details Date Type Department Care Team ([facility] st Contact Info) Description 09/27/2022 Telephone [facility] MEDICINE [address] [place], [place] [phone] Christa Peng DO [address] [place], [place] [phone] requesting call back Social History Tobacco Use [...] regarding hospital bed Please contact lore at [phone] documented in this encounter Plan of Treatment Not on file documented as of this encounter Visit Diagnoses Not on filedocumented in this encounter Care Teams House Steward/Stewardess Relationship Specialty Start Date End Date Christa Peng DO [address] [place] [address] PCP - General Family Medicine 03/19/20 documented as of this encounter
== END 2025-07-09 14:49 | disposition home or self-care (01) ==
LOC: HO.HCS 13:57
PROVIDERS: PCP Registered Nurse; Visit Provider Nurse Practitioner Family
DX: I48.0 Paroxysmal atrial fibrillation (principal); R07.89 Other chest pain; Z79.01 Long term (current) use of anticoagulants; Z79.899 Other long term (current) drug therapy
CPT/HCPCS: 93010; 99214; G2211

== ENCOUNTER → 2025-07-09 13:56 | Outpatient (BNVA) | payer MEDICARE, MEDICAID, SELFPAY | PROVIDERS: PCP Registered Nurse; Visit Provider Nurse Practitioner Family | DX: I48.0 Paroxysmal atrial fibrillation (principal); R07.89 Other chest pain; R00.1 Bradycardia, unspecified; I44.0 Atrioventricular block, first degree; R94.31 Abnormal electrocardiogram [ECG] [EKG]; Z79.01 Long term (current) use of anticoagulants; Z79.899 Other long term (current) drug therapy | CPT/HCPCS: 93005; 99212 ==